=== PATIENT | female | born 1965 | race Caucasian/White ===

== ENCOUNTER → 2016-09-28 | Outpatient (CLI) | payer OTHER ==
[~2016-09-28] MED LIST: ACETAMINOPHEN-O1 TAB PO; ALPRAZOLAM0.5 M3 PO; AMLODIPINE BESY1 TAB PO; ASPIRIN CHILDRE81 MG PO; BACTRIM DS 8001 TA1 PO; CYCLOBENZAPRINE10 MG PO; EPIPEN 2-PAK1 MG/ML IJ; FIORICET 325 MG1 TAB PO; HYDR12.5C PO; KENALOG 0.1% OI15 GM T; LISINOPRIL-HCTZ 20-1; LISINOPRIL-HYDR1 TA1 PO; LISINOPRIL20 MG PO; LISINOPRIL40 MG PO; LOPRESSOR50 MG PO; MEDROL DOSEPAK4 MG PO; NEURONTIN300 MG PO; NORCO 325 MG-51 TAB PO; NORVASC10 MG PO; NORVASC5 MG PO; NOVAPLUS V0.09 MG/Ac IH; PERCOCET 325 MG1 TA6 PO; POTASSIUM CHLO20 ME3 PO; PRAVASTATIN SOD40 MG PO; PREDNISONE10 MG PO; PYRIDIUM200 M1 PO; SERTRALINE HYD100 MG PO; XANAX0.25 MG PO; ZOFRAN ODT4 MG SL; ZOLOFT50 MG PO
[2016-09-28 15:17] LABS: HEMOGLOBIN A1c 14.6 % (4.8-5.6)
== END | disposition home or self-care (01) ==
LOC: LAB 14:11
PROVIDERS: Internal Medicine
DX: R73.9 Hyperglycemia, unspecified (principal)

== ENCOUNTER → 2017-04-01 | Outpatient (CLI) | payer OTHER | END | disposition home or self-care (01) | LOC: RAD 15:00 | DX: M17.12 Unilateral primary osteoarthritis, left knee (principal); M25.462 Effusion, left knee; M76.892 Other specified enthesopathies of left lower limb, excluding foot ==

== ENCOUNTER → 2017-09-05 | Outpatient (CLI) | payer OTHER | END | disposition home or self-care (01) | LOC: US 13:30 | DX: N18.3 Chronic kidney disease, stage 3 (moderate) (principal) ==

== ENCOUNTER 2018-01-09 15:30 | Inpatient (IN) | payer OTHER ==
[~2018-01-09] VITALS: Ht 160 cm; Wt 123.5 kg
[~2018-01-09 15:30] MED LIST changes: -NEURONTIN300 MG PO; +NEURONTIN400 MG PO
[2018-01-09 15:57] LABS: BASO % 0.3 % (0.0-1.0); EOS # 0.1 10*3/uL (0.0-0.4); EOS % 0.7 % (1.0-4.0); HEMATOCRIT 29.8 % (37.0-47.0); HEMOGLOBIN 9.9 g/dl (12.0-16.0); LYMPH # 2.1 10*3/uL (1.3-4.4); LYMPH % 15.4 % (27.0-41.0); MEAN CELL VOLUME 86.4 fl (81.0-99.0); MEAN CORPUSCULAR HGB 28.7 pg (27.0-31.0); MEAN CORPUSCULAR HGB CONC 33.2 g/dl (33.0-37.0); MEAN PLATELET VOLUME 9.4 fl (9.6-12.3); MONO # 0.8 10*3/uL (0.1-1.0); MONO % 5.9 % (3.0-9.0); NEUT # 10.4 10*3/uL (2.3-7.9); PLATELET COUNT AUTOMATED 237 10*3/uL (130-400); RED BLOOD COUNT 3.45 10*6/uL (4.10-5.10); RED CELL DISTRI WIDTH 14.6 % (0-14.5); WHITE BLOOD COUNT 13.5 10*3/uL (4.8-10.8)
[2018-01-09 16:00] VITALS: BP 92/52
[2018-01-09] MEDS ORDERED: HYDROCHLOROTHIA25 M1 PO (16:07)
[2018-01-09] MEDS ORDERED: VITAMIN D-32000 UNI1 PO (16:08)
[2018-01-09] MEDS ORDERED: NORVASC2.5 MG PO (16:08)
[2018-01-09] MEDS ORDERED: REXULTI3 MG PO (16:11)
[2018-01-09] MEDS ORDERED: ALOGLIPTIN6.25 MG PO (16:12)
[2018-01-09] MEDS ORDERED: ACTOS30 M1 PO (16:13)
[2018-01-09] MEDS ORDERED: BASAG SOL SC (16:15)
[2018-01-09 16:57] LABS: CREATININE 1.48 mg/dL (0.55-1.02); POTASSIUM 3.4 mmol/L (3.5-5.1); TOTAL PROTEIN 7.3 gm/dL (6.4-8.2)
[2018-01-09] MEDS ORDERED: VISTARIL25 MG PO (18:21)
[2018-01-09] MEDS ORDERED: DOXEPIN HCL100 MG PO (18:21)
[2018-01-09 20:00] VITALS: BP 106/43
[2018-01-10] VITALS: BP 109/51
[2018-01-10 07:11] LABS: BASO % 0.2 % (0.0-1.0); HEMATOCRIT 30.9 % (37.0-47.0); HEMOGLOBIN 9.8 g/dl (12.0-16.0); LYMPH % 8.1 % (27.0-41.0); MEAN CELL VOLUME 88.3 fl (81.0-99.0); MEAN CORPUSCULAR HGB CONC 31.7 g/dl (33.0-37.0); MEAN PLATELET VOLUME 9.8 fl (9.6-12.3); MONO # 0.1 10*3/uL (0.1-1.0); MONO % 0.6 % (3.0-9.0); NEUT # 11.1 10*3/uL (2.3-7.9); NEUT % 89.2 % (47.0-73.0); PLATELET COUNT AUTOMATED 234 10*3/uL (130-400); RED CELL DISTRI WIDTH 14.6 % (0-14.5); WHITE BLOOD COUNT 12.4 10*3/uL (4.8-10.8)
[2018-01-10 07:38] LABS: CREATININE 1.29 mg/dL (0.55-1.02); PHOSPHOROUS 2.9 mg/dL (2.5-4.9); POTASSIUM 4.1 mmol/L (3.5-5.1)
[2018-01-10 07:44] LABS: THYROID STIM HORMONE (HS) 0.711 uIU/ml (0.358-4.75)
[2018-01-10 07:56] LABS: VITAMIN D, 25-HYDROXY 10.5 ng/mL (30-100)
[2018-01-10 08:00] VITALS: BP 121/64
[2018-01-10 12:00] VITALS: BP 129/62
[2018-01-10 16:00] VITALS: BP 125/84
[2018-01-10 20:00] VITALS: BP 113/41
[2018-01-11] VITALS: BP 129/60
[2018-01-11 06:10] LABS: HEMATOCRIT 28.7 % (37.0-47.0); HEMOGLOBIN 9.1 g/dl (12.0-16.0); MEAN CORPUSCULAR HGB 27.9 pg (27.0-31.0); MEAN CORPUSCULAR HGB CONC 31.7 g/dl (33.0-37.0); MEAN PLATELET VOLUME 10.1 fl (9.6-12.3); PLATELET COUNT AUTOMATED 251 10*3/uL (130-400); RED BLOOD COUNT 3.26 10*6/uL (4.10-5.10); RED CELL DISTRI WIDTH 14.9 % (0-14.5); WHITE BLOOD COUNT 17.2 10*3/uL (4.8-10.8)
[2018-01-11 06:35] LABS: CREATININE 1.28 mg/dL (0.55-1.02); POTASSIUM 4.1 mmol/L (3.5-5.1)
[2018-01-11 08:00] VITALS: BP 125/63
[2018-01-11 08:09] LABS: TOTAL CELLS COUNTED 100 #CELLS
[2018-01-11 08:10] LABS: PLATELET SUFFICIENCY NORMAL (NORMAL)
[2018-01-11 12:00] VITALS: BP 120/60
[2018-01-11 16:00] VITALS: BP 139/59
[2018-01-11 20:00] VITALS: BP 115/57
[2018-01-12] VITALS: BP 106/56
[2018-01-12 08:00] VITALS: BP 145/69
[2018-01-12 12:00] VITALS: BP 136/69
[2018-01-12 16:17] VITALS: BP 129/65
[2018-01-12 20:02] VITALS: BP 119/72
[2018-01-13] VITALS: BP 133/57
[2018-01-13 07:17] LABS: HEMATOCRIT 27.5 % (37.0-47.0); HEMOGLOBIN 8.9 g/dl (12.0-16.0); MEAN CELL VOLUME 88.7 fl (81.0-99.0); MEAN CORPUSCULAR HGB 28.7 pg (27.0-31.0); MEAN CORPUSCULAR HGB CONC 32.4 g/dl (33.0-37.0); MEAN PLATELET VOLUME 10.2 fl (9.6-12.3); NUCLEATED RED BLOOD CELL 0.1 % (0.0-0.0); PLATELET COUNT AUTOMATED 265 10*3/uL (130-400); RED CELL DISTRI WIDTH 15.3 % (0-14.5); WHITE BLOOD COUNT 14.7 10*3/uL (4.8-10.8)
[2018-01-13 07:46] LABS: CREATININE 1.3 mg/dL (0.55-1.02)
[2018-01-13 07:57] LABS: PLATELET SUFFICIENCY NORMAL (NORMAL); POLYCHROMASIA SLIGHT; TOTAL CELLS COUNTED 100 #CELLS
[2018-01-13 08:00] VITALS: BP 151/83
[2018-01-13 12:00] VITALS: BP 137/41
[2018-01-13] MEDS ORDERED: DOXYCYCLINE100 M3 PO (14:10)
[2018-01-13] MEDS ORDERED: PREDNISONE10 MG PO (14:10)
== END 2018-01-13 15:43 | disposition home or self-care (01) | DRG 871 ==
LOC: 4E 15:30
PROVIDERS: Internal Medicine; Student in an Organized Health Care Education/Training Program
DX: A41.9 Sepsis, unspecified organism (principal); J18.9 Pneumonia, unspecified organism; E11.8 Type 2 diabetes mellitus with unspecified complications; E44.0 Moderate protein-calorie malnutrition; F33.9 Major depressive disorder, recurrent, unspecified; J44.0 Chronic obstructive pulmonary disease with (acute) lower respiratory infection; J44.1 Chronic obstructive pulmonary disease with (acute) exacerbation; Z68.42 Body mass index [BMI] 45.0-49.9, adult; E66.01 Morbid (severe) obesity due to excess calories; E83.41 Hypermagnesemia; D64.9 Anemia, unspecified; E78.5 Hyperlipidemia, unspecified; I10 Essential (primary) hypertension; F41.1 Generalized anxiety disorder; M19.90 Unspecified osteoarthritis, unspecified site; Z71.6 Tobacco abuse counseling; Z72.0 Tobacco use; Z88.8 Allergy status to other drugs, medicaments and biological substances; Z79.899 Other long term (current) drug therapy; Z79.82 Long term (current) use of aspirin; Z80.1 Family history of malignant neoplasm of trachea, bronchus and lung; Z84.89 Family history of other specified conditions

== ENCOUNTER 2018-02-13 16:12 | Inpatient (IN) | payer OTHER ==
[~2018-02-13] VITALS: Ht 160 cm; Wt 126.6 kg
--- NOTE | ~2018-02-13 | PR ---
[place], [place] PROGRESS NOTE NAME: [facility] [id number] UNIT #: [id number] ROOM: 415 DOCTOR: LAURA BUCKNER MD BIRTHDATE: [birth year] DOS: 02/21/2018 PULMONARY PROGRESS NOTE SUBJECTIVE: The patient noted comfortable at this time. Significant reduction and improvement in respiratory symptoms noted after the bronchoscopy. She has not been noted with symptoms of any chest pain. Wheezing and other symptoms, especially the cough has improved markedly. OBJECTIVE: VITAL SIGNS: Normal temperature this morning, respiratory rate 20, heart rate 93, blood pressure 148/74. The pulse oxygen saturation on room air 97% saturation. HEENT: Head was atraumatic. Eyes nonicterus. NECK: Supple. CARDIOVASCULAR: S1, S2 audible. LUNGS: Noted without any wheezing or crackles at the present time. ABDOMEN: Soft, nontender. Bowel sounds present. EXTREMITIES: Without any edema. LABORATORY DATA: Culture of the bronchial washing, normal regulo preliminary noted. Gram stain with various cell differentials were noted with neutrophil predominance of 43% with macrophages noted as well, 4% lymphocytes. IMPRESSION: The patient with possibility of acute pneumonia with ground-glass opacity in the left upper lobe as well as acute exacerbation of chronic obstructive pulmonary disease, severe coughing, noted marked reduction after the bronchoscopy. PLAN OF MANAGEMENT: The patient could be considered home discharge. Outpatient followup suggested postdischarge. Continue in the meantime other previous therapy plan of management and care plan. Usual treatment, other supportive care and treatment. [place], [place] PROGRESS NOTE NAME: TOM BREWSTER UNIT #: [id number] ROOM: 415 DOCTOR: LAURA BUCKNER MD BIRTHDATE: [birth year] LAURA MERINO MD CM:KATHERINE [id number] LAURA JACOBS MD 02/21/18 1501 interface
--- NOTE | ~2018-02-13 | PR ---
[place], [place] PROGRESS NOTE [id number] UN[facility] #: [id number] ROOM: 415 DOCTOR: DELMIS SEVILLA MD BIRTHDATE: [birth year] DOS: 02/16/2018 SUBJECTIVE: The patient has been admitted to hospital with shortness of breath with acute COPD with emphysema with respiratory difficulty. She had acute attack of difficulty breathing when she went to the bathroom in the morning, but after aerosol treatment, she is feeling much better. She is also a smoker. I had to mortgage counselor her in detail not to start smoking again and right now, she is having regular heart and having bilateral wheezing with increased expiration in both the lungs. ABDOMEN: Soft. Liver and spleen not palpable. No area of tenderness, no mass palpated. LABORATORY DATA: Her CBC today showed white count 12,600, hemoglobin 8.8, hematocrit 28.1. Blood culture did not grow any bacteria. VITAL SIGNS: Blood pressure 128/80, pulse is 109, respirations 20, temperature 98. The patient is showing slow improvement. DELMIS SEVILLA MD CM:PNTRANS [id number] DELMIS SEVILLA MD 02/27/18 0835 interface
--- NOTE | ~2018-02-13 | CON ---
[place], [place] REPORT OF CONSULTATION NAME: TOM BREWSTER [facility] #: [id number] UNIT #: [id number] ROOM: 415 DOCTOR: ANGELIQUE JACOBS MDLAURA BIRTHDATE: [birth year] DOS: 02/18/2018 REQUESTING PHYSICIAN: Dr. Walter Iverson. REASON FOR CONSULTATION: Assess the patient's current symptoms of shortness of breath and others. HISTORY OF PRESENT ILLNESS: A 52-year-old female patient who has been admitted to the hospital under the care of Dr. Iverson. The patient examined in 2018. The patient reported symptoms of having increased symptoms of coughing, chest pain, chest congestion and wheezing, which has worsened gradually in the last 2 weeks. The patient has been known with a history of COPD and was treated in the hospital about a month ago as per similar symptom. She stated the symptoms have decreased, but not completely resolved. Symptoms worsened again at this time. Coughing has been noted moderate severe, which remains nonproductive. Denies symptoms of chest pain or any acute hemoptysis. The patient denies symptoms of fever or chills with these symptoms. REVIEW OF SYSTEMS: CONSTITUTIONAL: Fatigue and tiredness reported. Denies symptoms of fever or chills. EYES: Denies any burning, redness, or tenderness. EARS, NOSE, THROAT SYMPTOMS: Denies sore throat, hoarseness, otalgia, postnasal drainage or epistaxis. CARDIOVASCULAR SYSTEM: Denies anginal pain, edema, pain and lower extremity. GASTROINTESTINAL: Dysphagia, nausea, vomiting, diarrhea, abdominal pain, hematemesis, melena, or hematochezia. GENITOURINARY SYMPTOM: No dysuria, suprapubic pain, hematuria. MUSCULOSKELETAL SYMPTOM: No acute joint pain, redness, or tenderness. SKIN: Denies symptoms of skin rashes, ulcers or itching. CENTRAL NERVOUS SYSTEM: The patient denies symptoms of diplopia or syncopal episodes. Remaining systems were reviewed with the patient, they were noted all negative. PAST MEDICAL HISTORY: 1. Reported with history of chronic obstructive pulmonary disease. 2. ____ arthritis. 3. Chronic kidney disease stage 3. 4. Type 2 diabetes mellitus. 5. Anxiety disorder. 6. Essential hypertension. 7. Hyperlipidemia. 8. Major depressive disorder. 9. Severe obesity. 10. Vitamin D deficiency. PAST SURGICAL HISTORY: Reported as . SOCIAL HISTORY: She was noted , has 2 children, and lives at home. [place], [place] REPORT OF CONSULTATION NAME: TOM BREWSTER UNIT #: [id number] ROOM: 415 DOCTOR: ANGELIQUE JACOBS MD,LAURA BIRTHDATE: [birth year] Smoked about half a pack of cigarettes actively since teenager. FAMILY HISTORY: Father at age 3333 years old from brain aneurysm. Mother at the age of 72 complication related to the lung cancer. HOME MEDICATIONS Reported as use of Ventolin HFA inhaler, Alogliptin, Xanax, Norvasc, aspirin, ____, vitamin D, cyclobenzaprine, doxepin, EpiPen, Neurontin, hydrochlorothiazide, Vistaril, sliding insulin coverage, nicotine replacement patches, Actos and sertraline. Medication which has been listed for the management of COPD were noted. Solu-Medrol 60 mg b.i.d., DuoNeb via nebulizer every 4 hours and Levaquin 500 mg every 48 hours. DRUG ALLERGIES: 1. LISINOPRIL CAUSING ANGIOEDEMA. 2. CITALOPRAM CAUSING VOMITING. PHYSICAL EXAMINATION: GENERAL: This is a 52-year-old white female who has been noted currently awake and alert without any distress. Height of 5 feet 3 inches, weight of 279 pounds, BMI 49.4. VITAL SIGNS: The patient was recorded as normal temperature, respiratory rate 20-18, heart rate of 97-105, blood pressure 142/76, 166-78. Pulse ox saturation on 2 liters 99-100% saturation. HEAD, EYES, EARS, NOSE, AND THROAT: Examination shows head was atraumatic. Eyes nonicterus. NECK: Supple. CARDIOVASCULAR SYSTEM: S1, S2 is audible. LUNGS: The patient was noted without any crackles. Decreased breath sounds with diffuse expiratory wheezing. ABDOMEN: Soft with chronic obesity, positive present without tenderness. CENTRAL NERVOUS SYSTEM: Cranial nerves 2-12 intact. No focal deficit. MUSCULOSKELETAL SYMPTOMS: Without acute deformities. LABORATORY AND DIAGNOSTIC DATA: CBC that was done this morning, WBC count 15.1, hemoglobin 8.7, platelet count 203,000. Creatinine this morning noted 1.63. Blood culture from the 7th of this month showed no bacterial growths. The review of the radiology data chest x-ray that was done on 02/13/2018 was noted changes of COPD without acute pulmonary infiltration. IMPRESSION: 1. The patient will be currently admitted to the hospital noted with ongoing acute exacerbation of chronic obstructive pulmonary disease treated with corticosteroids, bronchodilators, and other treatment, was still noted the coughing and wheezing that remains persistent. 2. History of nicotine abuse was also noted previous. 3. Severe morbid obesity as well. 4. Clinical suspicion of possibility of obstructive sleep apnea disorder with current body habitus as well. [place], [place] REPORT OF CONSULTATION NAME: TOM BREWSTER UNIT #: [id number] ROOM: 415 DOCTOR: ANGELIQUE JACOBS MD,LAURA BIRTHDATE: [birth year] PLAN OF MANAGEMENT: Continue Solu-Medrol, bronchodilators and oxygen supplementation. Monitor respiratory status closely. Addition of the ____ treatment. If the patient's symptoms persist, we will be scheduling a bronchoscopy at this time for further medical management. She is already getting the flutter valve that will be continued. Additional treatment changes will be made based on progression of the illness. Thanks for allowing me to participate in the care of this patient. LAURA MERINO MD CM:CONSTR:REPORT OF CONSULTATION 1317 02/18/18 6881 interface
--- NOTE | ~2018-02-13 | PROC NOTE ---
[place], [place] PROCEDURE NOTE NAME: TOM BREWSTER UNIT #: [id number] ROOM: 415 DOCTOR: ANGELIQUE JACOBS MD,LAURA BIRTHDATE: [birth year] DOS: 02/20/2018 PREOPERATIVE DIAGNOSES: Coughing, ground-glass opacity left upper lobe, nonresolving respiratory symptoms. POSTOPERATIVE DIAGNOSES: Removal of multiple thick plugs of mucus ____ bilaterally. BAL specimen was obtained from the left upper lobe as well. COMPLICATIONS: None. BLOOD LOSS: None. PROCEDURE DESCRIPTION: Informed consent was obtained for the patient, she was brought to the OR and placed in supine position. Conscious sedation administered by the Anesthesia Department. After achieving proper sedation, airway introduced into the mouth. Bronchoscope advanced into the airway into the laryngeal area. Epiglottis and vocal cords were seen. Bronchoscope was advanced to vocal cord and tracheal lumen. The tracheal lumen was seen. Moderate amount of thick mucus secretion suctioned out the aaron level. The aaron level was noted sharp. Right upper, right lower, right middle, right lower, left upper, lingular lobe bronchi were all noted impacted with thick mucus plugs which was cleared out with normal saline wash. BAL specimen obtained from the left upper lobe that was done difficulty. Transient hypoxia, treated with withdrawal of the scope. Continue oxygen supplementation. No complication noted post-procedure. Bronchial washings sent for all the appropriate testing including cytology, cell with differential and cultures. LAURA MERINO MD CM:PROCNOTE:PROCEDURE NOTE [id number] LAURA JACOBS MD
--- NOTE | ~2018-02-13 | PR ---
[place], [place] PROGRESS NOTE NAME: TOM BREWSTER UNIT #: [id number] ROOM: 415 DOCTOR: LAURA BUCKNER MD BIRTHDATE: [birth year] DOS: 02/20/2018 SUBJECTIVE: The patient noted the same for the patient's severe cough that remains persistent. Denies any symptoms of chest pain at this time. The cough, which remains nonproductive. She does have symptoms of wheezing intermittently, shortness of breath as well. Denies symptoms of nausea, vomiting, postnasal drainage, or headache. Denies any edema or pain in lower extremity. Denies symptoms of nausea, vomiting, diarrhea. Remaining systems were reviewed. They were noted all negative. OBJECTIVE: VITAL SIGNS: For the patient, which has been recorded shows the temperature noted as normal, respiratory rate of 16, heart rate 100, blood pressure 175/85 and previously 110/48. Pulse oxygen saturation of the patient noted on 2 liters nasal cannula 96% saturation. HEENT: Chronic obesity. Head was atraumatic. Eye nonicterus. NECK: Supple. CARDIOVASCULAR: S1, S2 audible. LUNGS: The patient noted generalized reduction in the breath sounds bilaterally with expiratory wheezing, no crackles. ABDOMEN: Soft, nontender. Bowel sounds present. EXTREMITIES: Chronic obesity without acute edema. MUSCULOSKELETAL: Without any acute deformities. SKIN: Noted without lesions or rashes. IMPRESSION: 1. The patient has been noted with ongoing severe acute exacerbation of chronic obstructive pulmonary disease. 2. ____ left upper lobe as well. 3. Severe obesity. 4. Consideration for obstructive sleep apnea disorder clinical assessment. 5. History of nicotine dependence. PLAN OF MANAGEMENT: Proceed with the bronchoscopy as planned for the patient today. Modification in treatment will be done based on the bronchoscopy if necessary. Other supportive therapy, plan of management and care plan. The patient was noted with mild elevation in the blood pressure related to mostly anxiety prior to the bronchoscopy; resolved after the bronchoscopy completion. No other change in treatment will be necessary. [place], [place] PROGRESS NOTE NAME: TOM BREWSTER UNIT #: [id number] ROOM: 415 DOCTOR: LAURA BUCKNER MD BIRTHDATE: [birth year] LAURA MERINO MD CM:PNTRANS 0 102 LAURA JACOBS MD 02/20/18 1022 interface
--- NOTE | ~2018-02-13 | PR ---
[place], [place] PROGRESS NOTE NAME: TOM BREWSTER [facility] #: [id number] UNIT #: [id number] ROOM: 415 DOCTOR: ANGELIQUE JACOBS MD,LAURA BIRTHDATE: [birth year] DOS: 02/19/2018 SUBJECTIVE: The patient noted comfortable at this time without any acute distress, has not been noted any symptoms of chest pain. Still noted with persistent symptoms of coughing, shortness of breath or chest congestion, inability to expectorate sputum. Denies symptoms of nausea, vomiting. Denies symptoms of diarrhea. The pain in the chest reported with coughing in the lower portion of the rib cage. She denies symptoms of dizziness, diplopia, syncopal episodes. The remaining systems for the patient were reviewed, they were noted all negative. PHYSICAL EXAMINATION: VITAL SIGNS: For the patient which are recorded showed normal temperature, respiratory rate 18, heart rate of 107, blood pressure 154/71, 122/48. Pulse ox saturation on room air was 92% on 2 liter nasal cannula was 96% saturation. HEENT: Examination shows chronic obesity. Head was atraumatic. Eyes nonicterus. NECK: Supple. CARDIOVASCULAR: S1, S2 is audible. LUNGS: The patient noted with general reduction in breath sounds bilaterally with expiratory wheezing. There were no crackles. ABDOMEN: Soft, nontender. Bowel sounds present. EXTREMITIES: The patient was noted without any acute edema. VISIBLE SKIN: No lesions or rashes. MUSCULOSKELETAL: Noted without any acute deformities. CENTRAL NERVOUS SYSTEM: Cranial nerves 2-12 intact. LABORATORY DATA: The patient had a CT scan of the chest, which was done without contrast ordered by the primary care attending was personally reviewed today shows evidence of patchy infiltration noted in the right middle lobe as in the right lower lobe for the patient consistent with acute pneumonia. A 5 mm nodule was noted in the right lower lobe as well. Further ground-glass opacity noted in the bilateral lower lobes as well. IMPRESSION: 1. The patient with ongoing acute exacerbation of chronic obstructive pulmonary disease with acute bacterial pneumonia. 2. The patient with evidence of 5-mm right lower lobe nodule, etiology unclear. 3. Suspicion of obstructive sleep apnea disorder. 4. Severe morbid obesity. 5. History of nicotine use. PLAN OF MANAGEMENT: Continue bronchodilators, oxygen supplementation and antibiotics. Continue the Mucinex for this patient as well in the flutter valve. Steroid dose for the patient would be continued the same as well. The patient was assessed for therapy of bronchoscopy as planned, to be done in the morning. The pulmonary nodule noted incidentally need to be monitored as an outpatient. No additional change in the treatment at this time will be necessary. Usual care, other supportive plan of management and care. [place], [place] PROGRESS NOTE NAME: TOM BREWSTER UNIT #: [id number] ROOM: [facility] DOCTOR: LAURA BUCKNER MD BIRTHDATE: [birth year] LAURA MERINO MD CM:KATHERINE 1030 [id number] LAURA JACOBS MD 02/19/18 1408 interface
--- NOTE | ~2018-02-13 | EKG ---
[place], [place] ELECTROCARDIOGRAM REPORT NAME: TOM BREWSTER UNIT #: [id number] ROOM: 415 DOCTOR: ANGELIQUE JACOBS MD,LAURA BIRTHDATE: [birth year] DOS: 02/19/2018 Electrocardiogram TIME: 08:53 a.m. Sinus tachycardia noted, heart rate 103 beats per minute. Possibility of left atrial enlargement, would be considered. LAURA MERINO MD CM:EKGRPT:ELECTROCARDIOGRAM REPORT [id number] 0907 LAURA JACOBS MD
--- NOTE | ~2018-02-13 | PR ---
[place], [place] PROGRESS NOTE NAME: TOM BREWSTER [facility] #: [id number] UNIT #: [id number] ROOM: 415 DOCTOR: DELMIS SEVILLA MD BIRTHDATE: [birth year] DOS: 02/15/2018 SUBJECTIVE: The patient has been admitted to hospital with acute bronchitis with sepsis with chronic kidney disease, COPD, diabetes mellitus, hypertension, hyperlipidemia, morbid obesity, protein calorie malnutrition, vitamin D deficiency and hypochromic anemia and also having chronic history of tobacco abuse. The patient is still having lot of cough and bringing up some phlem and having bilateral wheezing with some crepitation in both the lungs. Her hemoglobin Ac is 7.1. Her basic metabolic profile today shows glucose 251, BUN 24, creatinine 1.45, GFR 38, indicating chronic kidney disease. CBC showed white count 12,600, hemoglobin 8.8, hematocrit 28.1, 77% neutrophils, 18% lymphocyte, 5% monocyte. Blood culture did not grow any bacteria. OBJECTIVE: VITAL SIGNS: Her blood pressure is 144/69, pulse 110, respirations 20, temperature 97.6. The patient states she is feeling better as compared to yesterday. I counseled her in detail that she shall not smoke anymore. She promised she would not smoke anymore. DELMIS SEVILLA MD CM:PNTRANS [phone] DELMIS SEVILLA MD 02/27/18 0834 interface
[~2018-02-13 16:12] MED LIST changes: +ACTOS30 M1 PO; +ALOGLIPTIN6.25 MG PO; +BASAG SOL SC; +DOXEPIN HCL100 MG PO; +DOXYCYCLINE100 M3 PO; +HYDROCHLOROTHIA25 M1 PO; +NORVASC2.5 MG PO; +REXULTI3 MG PO; +VISTARIL25 MG PO; +VITAMIN D-32000 UNI1 PO
[2018-02-13 16:21] VITALS: BP 112/54
[2018-02-13 17:03] LABS: BASO % 0.3 % (0.0-1.0); EOS # 0.1 10*3/uL (0.0-0.4); EOS % 1.4 % (1.0-4.0); HEMATOCRIT 32.4 % (37.0-47.0); HEMOGLOBIN 10.3 g/dl (12.0-16.0); LYMPH # 2.2 10*3/uL (1.3-4.4); LYMPH % 24.7 % (27.0-41.0); MEAN CELL VOLUME 86.2 fl (81.0-99.0); MEAN CORPUSCULAR HGB 27.4 pg (27.0-31.0); MEAN CORPUSCULAR HGB CONC 31.8 g/dl (33.0-37.0); MEAN PLATELET VOLUME 9.2 fl (9.6-12.3); MONO # 0.7 10*3/uL (0.1-1.0); MONO % 7.5 % (3.0-9.0); NEUT # 5.9 10*3/uL (2.3-7.9); NEUT % 65.1 % (47.0-73.0); PLATELET COUNT AUTOMATED 377 10*3/uL (130-400); RED BLOOD COUNT 3.76 10*6/uL (4.10-5.10); RED CELL DISTRI WIDTH 14.7 % (0-14.5)
[2018-02-13 17:13] LABS: ACT PARTIAL THROMBO TIME 28.3 SECONDS (20.8-31.5)
[2018-02-13 17:22] LABS: ALBUMIN 3.2 gm/dl (3.1-4.5); ALKALINE PHOSPHATASE 152 U/L (45-117); BUN 15 mg/dl (7-24); CHLORIDE 99 mmol/L (98-107); CREATININE 1.47 mg/dL (0.55-1.02); LIPASE 38 U/L (73-393); POTASSIUM 3.4 mmol/L (3.5-5.1); SGOT/AST 10 IU/L (3-35); SGPT/ALT 15 U/L (12-78); SODIUM 139 mmol/L (136-145); TOTAL PROTEIN 8.1 gm/dL (6.4-8.2); TROPONIN I < 0.015 ng/ml (<0.045)
[2018-02-13] MEDS ORDERED: REXULTI2 MG PO (18:45)
[2018-02-13] MEDS ORDERED: NICODERM CQ1 EAC2 TD (18:49)
[2018-02-13 18:56] VITALS: BP 116/66
[2018-02-13 20:00] VITALS: BP 134/59
[2018-02-14 00:26] VITALS: BP 117/60
[2018-02-14 06:37] LABS: BASO % 0.3 % (0.0-1.0); HEMATOCRIT 33.6 % (37.0-47.0); HEMOGLOBIN 10.3 g/dl (12.0-16.0); LYMPH # 1.2 10*3/uL (1.3-4.4); LYMPH % 13.5 % (27.0-41.0); MEAN CELL VOLUME 87.7 fl (81.0-99.0); MEAN CORPUSCULAR HGB 26.9 pg (27.0-31.0); MEAN CORPUSCULAR HGB CONC 30.7 g/dl (33.0-37.0); MEAN PLATELET VOLUME 9.6 fl (9.6-12.3); MONO # 0.1 10*3/uL (0.1-1.0); NEUT # 7.7 10*3/uL (2.3-7.9); NEUT % 83.4 % (47.0-73.0); PLATELET COUNT AUTOMATED 365 10*3/uL (130-400); RED BLOOD COUNT 3.83 10*6/uL (4.10-5.10); RED CELL DISTRI WIDTH 14.4 % (0-14.5); WHITE BLOOD COUNT 9.2 10*3/uL (4.8-10.8)
[2018-02-14 06:41] LABS: ACT PARTIAL THROMBO TIME 28.8 SECONDS (20.8-31.5)
[2018-02-14 06:50] LABS: ALBUMIN 2.9 gm/dl (3.1-4.5); CREATININE 1.39 mg/dL (0.55-1.02); FREE T4 0.95 ng/dl (0.76-1.46); PHOSPHOROUS 3.6 mg/dL (2.5-4.9); POTASSIUM 3.5 mmol/L (3.5-5.1); TOTAL PROTEIN 7.6 gm/dL (6.4-8.2)
[2018-02-14 06:55] LABS: THYROID STIM HORMONE (HS) 1.23 uIU/ml (0.358-4.75)
[2018-02-14 07:30] LABS: VITAMIN D, 25-HYDROXY 22.3 ng/mL (30-100)
[2018-02-14 08:00] VITALS: BP 154/65
[2018-02-14 12:00] VITALS: BP 134/64
[2018-02-14 16:00] VITALS: BP 134/60
[2018-02-14 20:00] VITALS: BP 109/56
[2018-02-15] VITALS: BP 108/48
[2018-02-15 06:15] LABS: HEMATOCRIT 28.1 % (37.0-47.0); HEMOGLOBIN 8.8 g/dl (12.0-16.0); MEAN CELL VOLUME 88.1 fl (81.0-99.0); MEAN CORPUSCULAR HGB 27.6 pg (27.0-31.0); MEAN CORPUSCULAR HGB CONC 31.3 g/dl (33.0-37.0); MEAN PLATELET VOLUME 9.8 fl (9.6-12.3); PLATELET COUNT AUTOMATED 312 10*3/uL (130-400); RED BLOOD COUNT 3.19 10*6/uL (4.10-5.10); RED CELL DISTRI WIDTH 14.6 % (0-14.5); WHITE BLOOD COUNT 12.6 10*3/uL (4.8-10.8)
[2018-02-15 06:30] LABS: CREATININE 1.45 mg/dL (0.55-1.02)
[2018-02-15 06:33] LABS: POTASSIUM 4.5 mmol/L (3.5-5.1)
[2018-02-15 06:49] LABS: PLATELET SUFFICIENCY NORMAL (NORMAL); POLYCHROMASIA SLIGHT; TOTAL CELLS COUNTED 100 #CELLS
[2018-02-15 08:00] VITALS: BP 140/67
[2018-02-15 12:00] VITALS: BP 126/61
[2018-02-15 16:00] VITALS: BP 144/69
[2018-02-15 20:00] VITALS: BP 162/79
[2018-02-16] VITALS: BP 118/56
[2018-02-16 08:00] VITALS: BP 128/80
[2018-02-16 12:00] VITALS: BP 136/78
[2018-02-16 16:00] VITALS: BP 142/69
[2018-02-16 20:00] VITALS: BP 117/58
[2018-02-17] VITALS: BP 136/61
[2018-02-17 08:00] VITALS: BP 144/73
[2018-02-17 12:00] VITALS: BP 142/72
[2018-02-17 16:00] VITALS: BP 136/68
[2018-02-17 20:00] VITALS: BP 142/75
[2018-02-18 00:19] VITALS: BP 142/76
[2018-02-18 00:27] LABS: HEMATOCRIT 27.9 % (37.0-47.0); HEMOGLOBIN 8.7 g/dl (12.0-16.0); MEAN CELL VOLUME 88.3 fl (81.0-99.0); MEAN CORPUSCULAR HGB 27.5 pg (27.0-31.0); MEAN CORPUSCULAR HGB CONC 31.2 g/dl (33.0-37.0); MEAN PLATELET VOLUME 9.7 fl (9.6-12.3); PLATELET COUNT AUTOMATED 303 10*3/uL (130-400); RED BLOOD COUNT 3.16 10*6/uL (4.10-5.10); WHITE BLOOD COUNT 15.1 10*3/uL (4.8-10.8)
[2018-02-18 00:38] LABS: CREATININE 1.63 mg/dL (0.55-1.02)
[2018-02-18 01:28] LABS: PLATELET SUFFICIENCY NORMAL (NORMAL); TOTAL CELLS COUNTED 100 #CELLS
[2018-02-18 08:00] VITALS: BP 166/78
[2018-02-18 12:00] VITALS: BP 168/68
[2018-02-18 16:00] VITALS: BP 157/84
[2018-02-18 20:00] VITALS: BP 150/76
[2018-02-19] VITALS: BP 122/48
[2018-02-19 06:33] LABS: HEMATOCRIT 28.7 % (37.0-47.0); HEMOGLOBIN 8.8 g/dl (12.0-16.0); MEAN CELL VOLUME 89.1 fl (81.0-99.0); MEAN CORPUSCULAR HGB 27.3 pg (27.0-31.0); MEAN CORPUSCULAR HGB CONC 30.7 g/dl (33.0-37.0); MEAN PLATELET VOLUME 10.1 fl (9.6-12.3); NUCLEATED RED BLOOD CELL 0.1 % (0.0-0.0); PLATELET COUNT AUTOMATED 291 10*3/uL (130-400); RED BLOOD COUNT 3.22 10*6/uL (4.10-5.10); RED CELL DISTRI WIDTH 15.1 % (0-14.5); WHITE BLOOD COUNT 15.1 10*3/uL (4.8-10.8)
[2018-02-19 06:52] LABS: CREATININE 1.41 mg/dL (0.55-1.02); POTASSIUM 4.5 mmol/L (3.5-5.1)
[2018-02-19 07:54] LABS: PLATELET SUFFICIENCY NORMAL (NORMAL); TOTAL CELLS COUNTED 100 #CELLS
[2018-02-19 08:00] VITALS: BP 154/73
[2018-02-19 12:00] VITALS: BP 152/72
[2018-02-19 16:00] VITALS: BP 154/82
[2018-02-19 20:00] VITALS: BP 137/57
[2018-02-20] VITALS (8 sets, daily range): BP systolic 102–175; BP diastolic 46–90
[2018-02-20 10:57] LABS: BF LYMPHOCYTES 4 %; BF MACROPHAGES 53 %; BF NEUTROPHILS 43 %
[2018-02-21] VITALS: BP 120/54
[2018-02-21 08:00] VITALS: BP 148/74
[2018-02-21] MEDS ORDERED: LEVAQUIN750 M1 PO (13:10)
[2018-02-21] MEDS ORDERED: PREDNISONE10 MG PO (13:11)
[2018-02-21] MEDS ORDERED: LIPITOR10 MG PO (13:13)
[2018-02-21 18:03] LABS: ACID FAST SPEC PROCESSING Concentration (.)
== END 2018-02-21 13:40 | disposition home or self-care (01) | DRG 853 ==
LOC: ED 16:12 → EDHOLD 17:59 → 4E 17:59
PROVIDERS: Family Medicine; Internal Medicine; Internal Medicine Critical Care Medicine; Nurse Practitioner Family
PROC: 0B9G8ZX Drainage of Left Upper Lung Lobe, Via Natural or Artificial Opening Endoscopic, Diagnostic (ICD-10-PCS; principal; 2018-02-20)
PROC: 0BC98ZZ Extirpation of Matter from Lingula Bronchus, Via Natural or Artificial Opening Endoscopic (ICD-10-PCS; 2018-02-20)
PROC: 0BC48ZZ Extirpation of Matter from Right Upper Lobe Bronchus, Via Natural or Artificial Opening Endoscopic (ICD-10-PCS; 2018-02-20)
PROC: 0BC88ZZ Extirpation of Matter from Left Upper Lobe Bronchus, Via Natural or Artificial Opening Endoscopic (ICD-10-PCS; 2018-02-20)
PROC: 0BC58ZZ Extirpation of Matter from Right Middle Lobe Bronchus, Via Natural or Artificial Opening Endoscopic (ICD-10-PCS; 2018-02-20)
PROC: 0BC38ZZ Extirpation of Matter from Right Main Bronchus, Via Natural or Artificial Opening Endoscopic (ICD-10-PCS; 2018-02-20)
PROC: 0BC78ZZ Extirpation of Matter from Left Main Bronchus, Via Natural or Artificial Opening Endoscopic (ICD-10-PCS; 2018-02-20)
PROC: 0BC68ZZ Extirpation of Matter from Right Lower Lobe Bronchus, Via Natural or Artificial Opening Endoscopic (ICD-10-PCS; 2018-02-20)
PROC: 0BCB8ZZ Extirpation of Matter from Left Lower Lobe Bronchus, Via Natural or Artificial Opening Endoscopic (ICD-10-PCS; 2018-02-20)
PROC: 0BC18ZZ Extirpation of Matter from Trachea, Via Natural or Artificial Opening Endoscopic (ICD-10-PCS; 2018-02-20)
DX: A41.9 Sepsis, unspecified organism (principal); J15.9 Unspecified bacterial pneumonia; T17.890A Other foreign object in other parts of respiratory tract causing asphyxiation, initial encounter; E44.0 Moderate protein-calorie malnutrition; E11.22 Type 2 diabetes mellitus with diabetic chronic kidney disease; J44.1 Chronic obstructive pulmonary disease with (acute) exacerbation; Z68.42 Body mass index [BMI] 45.0-49.9, adult; N18.3 Chronic kidney disease, stage 3 (moderate); E66.01 Morbid (severe) obesity due to excess calories; E83.41 Hypermagnesemia; D64.9 Anemia, unspecified; E78.5 Hyperlipidemia, unspecified; M19.90 Unspecified osteoarthritis, unspecified site; E11.65 Type 2 diabetes mellitus with hyperglycemia; I12.9 Hypertensive chronic kidney disease with stage 1 through stage 4 chronic kidney disease, or unspecified chronic kidney disease; G47.33 Obstructive sleep apnea (adult) (pediatric); X58.XXXA Exposure to other specified factors, initial encounter; E55.9 Vitamin D deficiency, unspecified; F32.9 Major depressive disorder, single episode, unspecified; F41.1 Generalized anxiety disorder; Z88.8 Allergy status to other drugs, medicaments and biological substances; Z79.82 Long term (current) use of aspirin; Z98.891 History of uterine scar from previous surgery; Z98.51 Tubal ligation status; Z72.0 Tobacco use; Z80.1 Family history of malignant neoplasm of trachea, bronchus and lung; Z71.6 Tobacco abuse counseling; Z83.3 Family history of diabetes mellitus; Z82.49 Family history of ischemic heart disease and other diseases of the circulatory system; Z79.4 Long term (current) use of insulin; Z79.84 Long term (current) use of oral hypoglycemic drugs; Y93.89 Activity, other specified; Y92.89 Other specified places as the place of occurrence of the external cause; Y99.8 Other external cause status

== ENCOUNTER 2018-08-17 13:50 | Inpatient (IN) | payer OTHER ==
[~2018-08-17] VITALS: Ht 160 cm; Wt 117.7 kg
--- NOTE | ~2018-08-17 | CON ---
[place], [place] REPORT OF CONSULTATION [id number] UNIT #: [id number] ROOM: 405 DOCTOR: PHD ALEXI MEMO BIRTHDATE: [birth year] DOS: 08/21/2018 HISTORY OF PRESENT ILLNESS: The patient is a 53-year-old female referred by Dr. Iverson with concerns for depression and anxiety. The patient is seen at [facility]. She is presently on the 4th floor at [facility]. She is hoping to live with her sister upon discharge, although she may go to a homeless alf. She denied alcohol and drug use and smokes 6-7 cigarettes a day. She is unemployed. PAST MEDICAL HISTORY: Arthritis, chronic kidney disease, COPD, diabetes, elevated alkaline phosphatase level, generalized anxiety disorder, hypertension, hyperlipidemia, hypermagnesemia, lung nodules, lumphopenia, major depressive disorder, normocytic anemia, pneumonia, protein-calorie malnutrition, moderate sepsis, tachycardia, tachypnea, and vitamin D deficiency. MEDICATIONS: Mucinex, heparin, Senokot, Solu-Medrol, dextrose, Humulin, Lipitor, rexulti, Lantus, Actos, Tradjenta, vitamin D, aspirin, Norvasc, Nicoderm, Vistaril, Neurontin, Zoloft, Sinequan, Flexeril, DuoNeb, Rocephin, Zithromax, Xanax, Percocet. The patient reports feelings of depression and anxiety related to not being able to see her grandchildren at her weekly custody meeting, affect was tearful at times. She firmly denied suicidal and homicidal ideation. Speech and language were within normal limits conversationally. Thought process was linear and goal directed. Thought content was negative for hallucinations and delusions. Insight and judgment appeared fair. Discussed patient's disappointment with not being discharged in time to attend her visitation with her grandchildren and her concerns about her living situation upon discharge. Utilized CBT, motivational interviewing and supportive therapy interventions. The patient was receptive to feedback. She is very pleased with her current psychiatric medication regimen and providers. She plans to continue following with [facility] upon discharge. DIAGNOSES: Major depressive disorder, recurrent, unspecified; generalized anxiety disorder. PLAN: I will continue to follow the patient as needed. She will continue with her outpatient providers upon discharge. She is not requesting any medication changes at this time. Thank you very much for this consult. [place], [place] REPORT OF CONSULTATION NAME: TOM BREWSTER UNIT #: [id number] ROOM: 405 DOCTOR: ALEXI, PHD MEMO BIRTHDATE: [birth year] Lucia Headley, PhD CM:CONSTR:REPORT OF CONSULTATION 1637 08/26/18 1109 interface
--- NOTE | ~2018-08-17 | EKG ---
[place], [place] ELECTROCARDIOGRAM REPORT NAME: TOM BREWSTER UNIT #: [id number] ROOM: 405 DOCTOR: JESUS DRAFT REPORT BIRTHDATE: [birth year] [facility] Test Date: 2018-08-17 Test Time: 14:02:18 Pat Name: TOM BREWSTER Department: Room: 405 Gender: F Part Time: : 1965 Requested By: KVNG CASTRO PA-C Order Number: [id number] Reading MD: Mikhail Gamez MD Measurements Intervals [place] Rate: 95 P: 46 UT: 173 QRS: -10 QRSD: 104 T: 42 QT: 387 QTc: 487 Interpretive Statements Sinus rhythm RSR' in V1 or V2, right VCD or RVH Abnormal inferior Q waves Borderline prolonged QT interval Electronically Signed On 08-18-2018 6:52:04 PST by Mikhail Gamez MD CM:EKGRPT:ELECTROCARDIOGRAM REPORT 1402 0652 KVNG CASTRO PA-C EPIPHANY DRAFT REPORT KVNG CASTRO PA-C
[~2018-08-17 13:50] MED LIST changes: +LEVAQUIN750 M1 PO; +LIPITOR10 MG PO; +NICODERM CQ1 EAC2 TD; +REXULTI2 MG PO
[2018-08-17 13:52] VITALS: BP 156/75
[2018-08-17 15:23] LABS: BASO # 0.1 10*3/uL (0.0-0.1); BASO % 0.6 % (0.0-1.0); EOS % 0.2 % (1.0-4.0); HEMATOCRIT 37.9 % (37.0-47.0); HEMOGLOBIN 12.6 g/dl (12.0-16.0); LYMPH # 2.3 10*3/uL (1.3-4.4); LYMPH % 27.7 % (27.0-41.0); MEAN CELL VOLUME 81.3 fl (81.0-99.0); MEAN CORPUSCULAR HGB CONC 33.2 g/dl (33.0-37.0); MEAN PLATELET VOLUME 9.7 fl (9.6-12.3); MONO # 0.6 10*3/uL (0.1-1.0); MONO % 7.4 % (3.0-9.0); NEUT # 5.2 10*3/uL (2.3-7.9); NEUT % 63.5 % (47.0-73.0); PLATELET COUNT AUTOMATED 310 10*3/uL (130-400); RED BLOOD COUNT 4.66 10*6/uL (4.10-5.10); RED CELL DISTRI WIDTH 15.4 % (0-14.5); WHITE BLOOD COUNT 8.1 10*3/uL (4.8-10.8)
[2018-08-17 16:00] VITALS: BP 141/86
[2018-08-17 16:43] LABS: ALBUMIN 3.8 gm/dl (3.1-4.5); ALKALINE PHOSPHATASE 118 U/L (45-117); BUN 22 mg/dl (7-24); CHLORIDE 105 mmol/L (98-107); CREATININE 1.49 mg/dL (0.55-1.02); POTASSIUM 3.8 mmol/L (3.5-5.1); SGOT/AST 14 IU/L (3-35); SGPT/ALT 15 U/L (12-78); SODIUM 140 mmol/L (136-145); TOTAL PROTEIN 8.2 gm/dL (6.4-8.2)
[2018-08-17 16:45] LABS: TROPONIN I < 0.015 ng/ml (<0.045)
[2018-08-17 17:08] VITALS: BP 145/82
[2018-08-17 18:37] VITALS: BP 147/87
[2018-08-17 20:13] VITALS: BP 143/83
[2018-08-17 22:48] LABS: BILIRUBIN 1+ (NEGATIVE); BLOOD 1+ (NEGATIVE); CLARITY CLEAR (CLEAR); COLOR YELLOW (YELLOW); GLUCOSE 1+ (NEGATIVE); KETONE 1+ (NEGATIVE); LEUKO ESTERASE NEGATIVE (NEGATIVE); NITRITE NEGATIVE (NEGATIVE); SPECIFIC GRAVITY 1.025 (1.005-1.030); UROBILINOGEN 0.2 E.U./dl (0.2-1.0)
[2018-08-17 22:59] LABS: EPITHELIAL CELLS 35-40
[2018-08-17 23:00] LABS: BACTERIA TRACE; WBC 0-2 wbc/hpf (0-5)
[2018-08-18] VITALS: BP 142/92
[2018-08-18 06:37] LABS: BASO % 0.3 % (0.0-1.0); HEMATOCRIT 38.5 % (37.0-47.0); HEMOGLOBIN 12.1 g/dl (12.0-16.0); LYMPH # 1.3 10*3/uL (1.3-4.4); LYMPH % 21.8 % (27.0-41.0); MEAN CELL VOLUME 82.6 fl (81.0-99.0); MEAN CORPUSCULAR HGB CONC 31.4 g/dl (33.0-37.0); MEAN PLATELET VOLUME 10.2 fl (9.6-12.3); MONO # 0.1 10*3/uL (0.1-1.0); NEUT # 4.5 10*3/uL (2.3-7.9); NEUT % 74.9 % (47.0-73.0); PLATELET COUNT AUTOMATED 296 10*3/uL (130-400); RED BLOOD COUNT 4.66 10*6/uL (4.10-5.10); RED CELL DISTRI WIDTH 15.5 % (0-14.5)
[2018-08-18 06:47] LABS: ALBUMIN 3.4 gm/dl (3.1-4.5); CREATININE 1.45 mg/dL (0.55-1.02); POTASSIUM 3.1 mmol/L (3.5-5.1); TOTAL PROTEIN 7.7 gm/dL (6.4-8.2)
[2018-08-18 12:00] VITALS: BP 143/80
[2018-08-18 16:00] VITALS: BP 140/62
[2018-08-18 20:00] VITALS: BP 123/60
[2018-08-19] VITALS: BP 133/69
[2018-08-19 08:00] VITALS: BP 125/62
[2018-08-19 12:00] VITALS: BP 142/73
[2018-08-19 16:00] VITALS: BP 105/60
[2018-08-19 20:00] VITALS: BP 125/62
[2018-08-20] VITALS: BP 169/72
[2018-08-20 07:26] LABS: CREATININE 1.49 mg/dL (0.55-1.02); POTASSIUM 3.7 mmol/L (3.5-5.1)
[2018-08-20 11:57] VITALS: BP 135/58
[2018-08-20 16:00] VITALS: BP 127/60
[2018-08-20 20:00] VITALS: BP 156/69
[2018-08-21] VITALS: BP 145/75
[2018-08-21 10:07] LABS: CREATININE,URINE 52.6 mg/dL (Not Estab.); MICRO ALBUMIN/CRE RATIO <5.7 (0.0-30.0)
[2018-08-21 12:00] VITALS: BP 136/75
[2018-08-21 16:00] VITALS: BP 150/56
[2018-08-21 20:00] VITALS: BP 111/67; BP 125/72
[2018-08-22] VITALS: BP 143/64
[2018-08-22 12:00] VITALS: BP 133/56
[2018-08-22 16:00] VITALS: BP 116/55
[2018-08-22 20:00] VITALS: BP 126/59
[2018-08-22 21:06] VITALS: BP 116/54
[2018-08-23] VITALS: BP 143/74
[2018-08-23 08:00] VITALS: BP 140/70
[2018-08-23 12:00] VITALS: BP 150/68
[2018-08-23 16:00] VITALS: BP 155/55
[2018-08-23 20:00] VITALS: BP 122/44
[2018-08-24] VITALS: BP 128/41
[2018-08-24 08:00] VITALS: BP 106/55
[2018-08-24 12:00] VITALS: BP 156/61
[2018-08-24 16:00] VITALS: BP 186/68
[2018-08-24 20:00] VITALS: BP 116/64; BP 151/80
[2018-08-25 08:23] VITALS: BP 118/72
[2018-08-25 12:00] VITALS: BP 118/44
[2018-08-25] MEDS ORDERED: DOXYCYCLINE100 MG PO (13:28)
[2018-08-25] MEDS ORDERED: VISTARIL25 MG PO (13:28)
[2018-08-25] MEDS ORDERED: DOXEPIN25 MG PO (13:28)
[2018-08-25] MEDS ORDERED: PREDNISONE10 MG PO (13:28)
== END 2018-08-25 14:09 | disposition home or self-care (01) | DRG 871 ==
LOC: ED 13:50 → 4E 17:01 → EDHOLD 17:01 → 4E 19:05
PROVIDERS: Internal Medicine; Internal Medicine Nephrology; Physician Assistant
DX: A41.9 Sepsis, unspecified organism (principal); J18.9 Pneumonia, unspecified organism; J44.1 Chronic obstructive pulmonary disease with (acute) exacerbation; J44.0 Chronic obstructive pulmonary disease with (acute) lower respiratory infection; F33.9 Major depressive disorder, recurrent, unspecified; E55.9 Vitamin D deficiency, unspecified; E78.5 Hyperlipidemia, unspecified; F41.1 Generalized anxiety disorder; N18.3 Chronic kidney disease, stage 3 (moderate); I12.9 Hypertensive chronic kidney disease with stage 1 through stage 4 chronic kidney disease, or unspecified chronic kidney disease; K59.00 Constipation, unspecified; E11.22 Type 2 diabetes mellitus with diabetic chronic kidney disease; F17.210 Nicotine dependence, cigarettes, uncomplicated; R31.9 Hematuria, unspecified; E87.6 Hypokalemia; M19.90 Unspecified osteoarthritis, unspecified site; E66.01 Morbid (severe) obesity due to excess calories; Z88.8 Allergy status to other drugs, medicaments and biological substances; Z98.51 Tubal ligation status; Z80.1 Family history of malignant neoplasm of trachea, bronchus and lung; Z83.3 Family history of diabetes mellitus; Z82.49 Family history of ischemic heart disease and other diseases of the circulatory system; Z82.3 Family history of stroke; Z84.89 Family history of other specified conditions; Z87.01 Personal history of pneumonia (recurrent); Z84.1 Family history of disorders of kidney and ureter; Z79.899 Other long term (current) drug therapy; Z79.82 Long term (current) use of aspirin; Z79.4 Long term (current) use of insulin

== ENCOUNTER 2018-09-20 18:37 | Inpatient (IN) | payer OTHER ==
[~2018-09-20] VITALS: Ht 160 cm; Wt 117.7 kg
--- NOTE | ~2018-09-20 | PR ---
[place], [place] PROGRESS NOTE [id number] UNIT #: [id number] ROOM: 412 DOCTOR: ANGELIQUE JACOBS MD,LAURA BIRTHDATE: [birth year] DOS: 09/26/2018 SUBJECTIVE: The patient has been doing very well. Bronchoscopy resulted in marked improvement and resolution of the wheezing and the cough. The patient's shortness of breath has improvement. Denies symptoms of chest pain. OBJECTIVE: VITAL SIGNS: Normal temperature, respiratory rate 16, heart rate 94, blood pressure 150/92. The pulse oxygen saturation recorded as 92% on room air. HEENT: Chronic obesity. NECK: Supple. CARDIOVASCULAR: S1, S2 is audible. LUNGS: Noted without any wheeze or crackles at the present time. ABDOMEN: Soft, nontender, bowel sounds present. EXTREMITIES: No acute change. LABORATORY DATA: The cultures of the bronchial washing noted normal regulo, final results are pending. IMPRESSION: The patient with improvement continued with acute exacerbation of chronic obstructive pulmonary disease, acute bronchitis, status post bronchoscopy, removal and extraction of the mucus plugs from the airways. PLAN OF TREATMENT: Discharge planning with oral prednisone and other medical management as previously addressed. Followup appointment could be established for further assessment of the patient's pulmonary status if desired by the patient. LAURA MERINO MD CM:PNTRANS 1319 1412 LAURA JACOBS MD 09/26/18 1413 interface
--- NOTE | ~2018-09-20 | EKG ---
[place], [place] ELECTROCARDIOGRAM REPORT NAME: TOM BREWSTER UNIT #: [id number] ROOM: 412 DOCTOR: JESUS DRAFT REPORT BIRTHDATE: [birth year] [facility] Test Date: 2018-09-23 Test Time: 13:43:27 Pat Name: TOM RBEWSTER Department: Room: 412 2 Gender: F Director Of Gift Planning: EKG.ME : 1965 Requested By: KENNA MURRELL Order Number: [id number] Reading MD: Marek Iverson MD Measurements Intervals [place] Rate: 93 P: 50 [place]: 191 QRS: 22 QRSD: 90 T: 26 QT: 355 QTc: 442 Interpretive Statements Sinus rhythm Left atrial enlargement Compared to ECG 09/20/2018 19:16:14 Right ventricular hypertrophy no longer present Inferior Q waves no longer present Q waves no longer present Electronically Signed On 09-30-2018 7:15:23 PST by Marek Iverson MD CM:EKGRPT:ELECTROCARDIOGRAM REPORT 1343 0715 KENNA MURRELL MD EPIPHANY DRAFT REPORT KENNA MURRELL MD
--- NOTE | ~2018-09-20 | PR ---
[place], [place] PROGRESS NOTE [id number] UNIT #: [id number] ROOM: 412 DOCTOR: ANGELIQUE JACOBS MD,LAURA BIRTHDATE: [birth year] DOS: 09/25/2018 PULMONARY PROGRESS NOTE SUBJECTIVE: The patient is noted comfortable at this time, resting on the bed, still noted with severe cough that remains nonproductive. There are no symptoms of hemoptysis. Chest pain is reported still in the lower portion of the rib cage because of nonproductive cough, which has been noted multiple times in the day. Denies symptoms of postnasal drainage. Denies symptoms of hematemesis, melena, nausea, vomiting, diarrhea, or abdominal pain. Denies symptoms of fever or chills. Denies any pain of the lower extremities. She is n.p.o. past midnight for bronchoscopy, which is planned to be done today. OBJECTIVE: VITAL SIGNS: Normal temperature, respiratory rate 17, heart rate of 103-94, blood pressure 145/69. Pulse oxygen saturation recorded as 95% at rest on room air. HEENT: Chronic obesity. Head is atraumatic. Eyes nonicterus. NECK: Supple. CARDIOVASCULAR: S1 and S2 audible. LUNGS: Decreased breath sounds noted in the lungs bilaterally. Expiratory wheezing. There are no crackles. ABDOMEN: Soft and obese. EXTREMITIES: No acute edema. MUSCULOSKELETAL: Without acute deformities. CENTRAL NERVOUS SYSTEM. Cranial nerves 2 through 12 intact. LABORATORY DATA: CBC today: WBC count 12.3, hemoglobin 9.7, hematocrit 30.7, platelet count of 298,000. BMP this morning: BUN 20, creatinine 1.16, glucose 279. IMPRESSION: 1. Persistent respiratory symptoms of nonproductive cough with wheezing and shortness of breath, not responding to treatment, here for bronchoscopy. 2. Chronic obesity as well. PLAN OF MANAGEMENT: No changes in the plan of care at this time. Continuation of bronchodilators and oxygen supplementation. Proceed with bronchoscopy. Dose of Solu-Medrol would be decreased to 40 mg b.i.d. after the bronchoscopy. Other therapy, plan of management as in progress would be continued. Supportive care with any additional treatment changes if necessary will be ordered after the bronchoscopy. [place], [place] PROGRESS NOTE NAME: TOM BREWSTER UNIT #: [id number] ROOM: [facility] DOCTOR: LAURA BUCKNER MD BIRTHDATE: [birth year] LAURA MERINO MD CM:PNTRANS [id number] LAURA JACOBS MD 09/25/18 1416 interface
--- NOTE | ~2018-09-20 | CON ---
[place], [place] REPORT OF CONSULTATION NAME: TOM BREWSTER [facility] #: [id number] UNIT #: [id number] ROOM: 412 DOCTOR: ANGELIQUE JACOBS MDLAURA BIRTHDATE: [birth year] DOS: 09/23/2018 PULMONARY CONSULTATION, EVALUATION AND MANAGEMENT CONSULTATION REQUESTED BY: Marek Iverson MD REASON FOR CONSULTATION: Assessment of current ongoing respiratory symptoms, nonresolving with COPD. HISTORY OF PRESENT ILLNESS: This is a 53-year-old female patient who has been admitted to the hospital with reported symptoms of ongoing nausea, vomiting and other symptoms on admission. She has been hospitalized since 09/20/2018. The patient has been admitted to the hospital currently treated for acute exacerbation of COPD and upper GI symptoms. She has been reporting symptoms of increased coughing, chest congestion and wheezing and shortness of breath occurred after the upper respiratory tract infection symptoms with postnasal drainage and chest congestion. The patient's symptoms have been noted progressive at this time, not responding to the current medical management effectively. The patient denies symptoms of hemoptysis. The cough still remains with intermittent small sputum expectoration most of the time has been reported dry. REVIEW OF SYSTEMS: CONSTITUTIONAL: Fatigue and tiredness reported with symptoms of fever or chills on admission, which were resolved. There were no symptoms of fever on admission. EYES: Denies any redness or discharge. Postnasal drainage. The patient nasal congestion seemed to be better. CARDIOVASCULAR: Denies anginal pain, edema, pain of the lower extremity, or palpitation. GASTROINTESTINAL SYMPTOMS: Denies dysphagia, nausea, vomiting, diarrhea, abdominal pain, hematemesis, melena, hematochezia, or abnormal weight loss. Denies dysphagia. GENITOURINARY: No dysuria, suprapubic pain, or hematuria. MUSCULOSKELETAL: No acute joint pain, redness, or tenderness. SKIN: Denies lesions or rashes. CENTRAL NERVOUS SYSTEM: Denies dizziness, headache, diplopia, tingling sensation or syncopal episodes. Occasional seizures. Remaining systems were reviewed, they were noted all negative. PAST MEDICAL HISTORY: Noted as: 1. COPD. 2. Chronic kidney disease stage 3. 3. Type 2 diabetes mellitus. 4. General anxiety disorder. 5. Essential hypertension. 6. Hyperlipidemia. 7. Chronic obesity. 8. Vitamin D deficiency. [place], [place] REPORT OF CONSULTATION NAME: TOM BREWSTER UNIT #: [id number] ROOM: 412 DOCTOR: ANGELIQUE JACOBS MD,LAURA BIRTHDATE: [birth year] PAST SURGICAL HISTORY: Noted as . SOCIAL HISTORY: The patient was noted with chronic tobacco use from a teenager, started at the age of [age] years old. She was smoking a pack of cigarettes per day and recently decreased the tobacco use to about 6 cigarettes a day as per patient. Denies any history of alcohol use. The patient denies any illicit drug use. FAMILY HISTORY: Both parents . Father with complication of brain aneurysm and mother with complications of lung cancer. HOME MEDICATIONS: Listed as several that includes Geodon, sertraline, Actos, Percocet, nicotine patch, Atarax, hydrochlorothiazide, gabapentin, ferrous sulfate, doxepin, Flexeril, Rexulti, Lipitor, aspirin, Norvasc, Xanax, alogliptin and Ventolin HFA inhaler. CURRENT MEDICATIONS: Administered for on this admission from the pulmonary standpoint was noted with the use of DuoNeb q.4h., Solu-Medrol 40 mg b.i.d., intravenous vancomycin, Zithromax and IV Rocephin. DRUG ALLERGY HISTORY: The patient was noted as allergy: 1. Lisinopril. 2. Celexa. PHYSICAL EXAMINATION: GENERAL: A 53-year-old female patient who has been noted currently awake and alert without acute distress. Height of 5 feet 3 inches, weight of 259 pounds, BMI 45. VITAL SIGNS: The patient recorded as normal temperature to 99.6 Fahrenheit in the last 48 hours. The respiratory rate range between 18-16, heart rate of 112-101 with sinus tachycardia, blood pressure 136/76 to 126/62. Pulse ox saturation on room air was 91% saturation. HEENT: Chronic obesity. Head was atraumatic. Decreased posterior pharyngeal space, high tongue base crowding of soft tissue structures. NECK: Supple. CARDIOVASCULAR: S1, S2 is audible. LUNGS: Moderate decreased breath sounds with expiratory wheezing without any crackles. ABDOMEN: Soft, obese, nontender. Bowel sounds present. EXTREMITIES: No acute edema. MUSCULOSKELETAL: Cranial nerves 2-12 intact. No focal deficit. LABORATORY DATA: CBC on 09/20/2018, WBC count of 13.4, platelet count 449,000, normal hemoglobin and hematocrit. Lactic acid 2.3 on admission was 2.0 on 09/20/2018. Urine drug screen positive for amphetamines, benzodiazepines, THC and cocaine. The CMP that was done on 09/20/2018, BUN 32, creatinine 1.66, glucose 130 sodium 134 on admission as well. Nasal washing antigen A and B on admission was negative. The CBC was repeated on 09/22/2018, WBC count 12,000, hemoglobin 10.3, platelet count was normal. Blood culture from admission, [place], [place] REPORT OF CONSULTATION NAME: TOM BREWSTER UNIT #: [id number] ROOM: [facility] DOCTOR: ANGELIQUE JACOBS MD,[facility] BIRTHDATE: [birth year] 09/20/2018, one of the blood cultures noted gram-positive cocci in clusters and other 3 blood cultures on the same date was noted without any bacterial growth. The review of the radiology DATA, chest x-ray that was done on 09/20/2018, showed no bacterial growth. CT scan of the abdomen and pelvis completed on 09/21/2018 with the radiologist report as mentioned showed acute abnormalities. Lower portion of the abdomen does not show any acute pulmonary infiltration or pleural fluid as assessed. IMPRESSION: 1. The patient will be currently admitted to the hospital with ongoing acute exacerbation of chronic obstructive pulmonary disease, acute bronchitis with partial improvement in symptoms. 2. Gram-positive cocci bacteremia with possibility of contamination could very likely rather than true infection. 3. Morbid obesity with consideration of obstructive sleep apnea disorder. 4. Chronic nicotine dependence as well. Other medical illnesses, illicit drug use in the form of cocaine, amphetamine, and THC was identified on admission. PLAN OF THERAPY: Solu-Medrol dose will be changed to 60 mg q.8 hours for 24 hours and then the dose will be decreased. Continuation of bronchodilator. No change in antibiotic will be necessary. Follow the results of the blood culture to determine contamination and stool infection. Bronchodilator will be changed to albuterol sulfate from the DuoNe as well. Continuation of the nicotine replacement patches, therapy, plan of management, care plan with additional treatment changes will be made in the treatment based on the progression of the illness. If the respiratory symptoms remain persistent does not improve with a current conducted therapy, consider fiberoptic bronchoscopy in the next 48 hours. Other plan of therapy and care plan for the patient at this time without any changes. Usual care. Abstinence of tobacco use was encouraged. Thanks for allowing me to participate in the care of this patient. LAURA MERINO MD CM:CONSTR:REPORT OF CONSULTATION 1244 09/24/18 0055 interface
--- NOTE | ~2018-09-20 | PR ---
[place], [place] PROGRESS NOTE NAME: TOM BREWSTER [facility] #: [id number] UNIT #: [id number] ROOM: 412 DOCTOR: ANGELIQUE JACOBS MD,LAURA BIRTHDATE: [birth year] DOS: 09/24/2018 PULMONARY PROGRESS NOTE SUBJECTIVE: The patient was still complaining of severe cough with minimal improvement in past few hours. She was still complaining of symptoms of shortness of breath that occurs with exertion with wheezing. Chest pain also reported lower portion with excessive coughing, which has been noted episodic. Head congestion was also reported. Denies symptoms of nausea, vomiting, diarrhea, abdominal pain, hematemesis, melena, or hematuria. Denies any skin lesions. Remaining systems were reviewed, they were noted all negative. PHYSICAL EXAMINATION: VITAL SIGNS: For the patient has a normal temperature, respiratory rate 18, heart rate of 104-93, blood pressure 146/77 to 151/80. Pulse oxygen saturation on room air at rest was 92% saturation. HEENT: Chronic obesity. Head was atraumatic. Eyes nonicterus. Decreased posterior pharyngeal space with high tongue base and crowding of soft tissue structures. CARDIOVASCULAR: S1, S2 audible. No added sounds. LUNGS: Noted with expiratory wheezing in the lungs bilaterally. No crackles. ABDOMEN: Soft, nontender. EXTREMITIES: Chronic obesity without edema, clubbing, or cyanosis. VISIBLE SKIN: No lesions or rashes. MUSCULOSKELETAL: Without acute deformities. CENTRAL NERVOUS SYSTEM: Intact. LABORATORY DATA: CBC today, WBC count 14.5, hemoglobin 10.3, hematocrit 33.2, platelet count 318,000. BMP, BUN 35, creatinine 1.32, glucose 274. Sodium 135. Blood culture from the 09/20/2017 noted as Staph hominis. IMPRESSION: Ongoing severe acute exacerbation of chronic obstructive pulmonary disease with acute bronchitis with nonproductive cough gram-positive cocci bacteremia, Staphylococcus hominis, possible contamination, chronic obesity, history of nicotine. PLAN OF MANAGEMENT: The patient has been assessed. The patient will be undergoing therapeutic bronchoscopy tomorrow morning because of severe cough. Musculoskeletal chest pain, which is symptomatic. Decrease the dose of Solu-Medrol in the lower dose 40 mg q.8h. Continue current antibiotic. No change in treatment. Other supportive plan of management and additional change in treatment will be made based on the progression of the illness. [place], [place] PROGRESS NOTE NAME: TOM BREWSTER UNIT #: [id number] ROOM: 412 DOCTOR: LAURA BUCKNER MD BIRTHDATE: [birth year] LAURA MERINO MD CM:PNTRANS [id number] LAURA JACOBS MD 10/06/18 0912 interface
--- NOTE | ~2018-09-20 | EKG ---
[place], [place] ELECTROCARDIOGRAM REPORT NAME: TOM BREWSTER UNIT #: [id number] ROOM: 412 DOCTOR: EPIPHANY DRAFT REPORT BIRTHDATE: [birth year] [facility] [place] [facility] Test Date: 2018-09-20 Test Time: 19:16:14 Pat Name: TOM BREWSTER Department: 4E Room: 412 Gender: F Decorator Hand: Suresh [place] : 1965 Requested By: NAYANA BLACKMAN Order Number: [id number] Reading MD: Zeenat Boykin MD Measurements Intervals [place] Rate: 94 P: 42 NM: 181 QRS: -9 QRSD: 98 T: 24 QT: 381 QTc: 477 Interpretive Statements Sinus rhythm Left atrial enlargement RSR' in V1 or V2, right VCD or RVH Abnormal inferior Q waves Compared to ECG 08/17/2018 14:02:18 Atrial abnormality now present Electronically Signed On 09-22-2018 4:53:07 PST by Zeenat Boykin MD CM:EKGRPT:ELECTROCARDIOGRAM REPORT [id number] NAYANA BLACKMAN EPIPHANY DRAFT REPORT NAYANA BLACKMAN
--- NOTE | ~2018-09-20 | PROC NOTE ---
[place], [place] PROCEDURE NOTE NAME: TOM BREWSTER UNIT #: [id number] ROOM: 412 DOCTOR: ANGELIQUE JACOBS MD,LAURA BIRTHDATE: [birth year] DOS: 09/25/2018 PREOPERATIVE DIAGNOSES: Severe cough, wheezing, not responding to current maximum medical management. POSTOPERATIVE DIAGNOSIS: Successful removal of the moderate amount of mucus impaction of the airways bilaterally without difficulty. There were no endobronchial obstructive lesions. COMPLICATIONS: None. PROCEDURE DESCRIPTION: After informed consent from the patient. The patient was brought to the OR and placed in supine position. Conscious sedation was administered by the Anesthesia Department. After that, airway into the mouth. Bronchoscope advanced to airway into laryngeal area. Epiglottis and vocal cords were seen. Vocal cords moving symmetrically with movements. Bronchoscope entered vocal cord. Tracheal lumen shows moderate amount of thick mucus, which was suctioned out. Elina was noted sharp after that. The right upper, right middle, right lower, left upper, lingular lower lobe bronchi all examined and were noted impacted with moderate amount of mucus. All the secretions suctioned out with the help of normal saline wash, sent for culture. Procedure was tolerated by the patient without difficulty. Postoperative findings will be discussed with the patient when the patient recovers the effects of acute sedation. LAURA MERINO MD CM:PROCNOTE:PROCEDURE NOTE [id number] LAURA JACOBS MD
[~2018-09-20 18:37] MED LIST changes: -ACETAMINOPHEN-O1 TAB PO; +DOXEPIN25 MG PO; +DOXYCYCLINE100 MG PO; +PERCOCET 5-3251 EACH PO
[2018-09-20 18:41] VITALS: BP 150/79
[2018-09-20 19:23] LABS: BASO # 0.1 10*3/uL (0.0-0.1); BASO % 0.6 % (0.0-1.0); EOS # 0.1 10*3/uL (0.0-0.4); EOS % 0.4 % (1.0-4.0); HEMATOCRIT 39.5 % (37.0-47.0); HEMOGLOBIN 12.7 g/dl (12.0-16.0); LYMPH # 2.4 10*3/uL (1.3-4.4); LYMPH % 18.3 % (27.0-41.0); MEAN CELL VOLUME 83.9 fl (81.0-99.0); MEAN CORPUSCULAR HGB CONC 32.2 g/dl (33.0-37.0); MONO # 0.8 10*3/uL (0.1-1.0); MONO % 5.7 % (3.0-9.0); NEUT # 9.9 10*3/uL (2.3-7.9); NEUT % 74.2 % (47.0-73.0); PLATELET COUNT AUTOMATED 449 10*3/uL (130-400); RED BLOOD COUNT 4.71 10*6/uL (4.10-5.10); RED CELL DISTRI WIDTH 17.2 % (0-14.5); WHITE BLOOD COUNT 13.4 10*3/uL (4.8-10.8)
[2018-09-20 19:24] LABS: BILIRUBIN 2+ (NEGATIVE); BLOOD 1+ (NEGATIVE); CLARITY SL CLOUDY (CLEAR); COLOR YELLOW (YELLOW); GLUCOSE NEGATIVE (NEGATIVE); KETONE TRACE (NEGATIVE); LEUKO ESTERASE TRACE (NEGATIVE); NITRITE NEGATIVE (NEGATIVE); PH 5.5 (5.0-9.0); SPECIFIC GRAVITY >= 1.030 (1.005-1.030); UROBILINOGEN 0.2 E.U./dl (0.2-1.0)
[2018-09-20 19:31] LABS: URINE AMPHETAMINES > 1000 (1000ng/ml); URINE BARBITURATES < 200 (200ng/ml); URINE BENZODIAZEPINES > 200 (200ng/ml); URINE CANNABINOIDS (THC) > 50 (50ng/ml); URINE COCAINE > 300 (300ng/ml); URINE METHADONE < 300 (300ng/ml); URINE OPIATES < 300 (300ng/ml)
[2018-09-20 19:33] LABS: URINE PHENCYCLIDINE < 25 (25ng/ml)
[2018-09-20 19:39] LABS: BACTERIA 2+; EPITHELIAL CELLS 51-100
[2018-09-20 19:39] LABS: ALBUMIN 3.5 gm/dl (3.1-4.5); CREATININE 1.66 mg/dL (0.55-1.02); POTASSIUM 3.6 mmol/L (3.5-5.1); TOTAL PROTEIN 8.4 gm/dL (6.4-8.2)
[2018-09-20 19:57] VITALS: BP 162/77
[2018-09-20 20:41] VITALS: BP 155/81
[2018-09-20 21:47] VITALS: BP 173/82
[2018-09-20 22:42] VITALS: BP 154/83
[2018-09-20] MEDS ORDERED: ZIPRASIDONE HCL20 M1 PO (23:39)
[2018-09-20] MEDS ORDERED: FEROSUL325 MG PO (23:40)
[2018-09-21] VITALS: BP 150/72
[2018-09-21 08:00] VITALS: BP 142/78
[2018-09-21 12:00] VITALS: BP 130/69
[2018-09-21 16:00] VITALS: BP 134/66
[2018-09-21 20:00] VITALS: BP 120/48
[2018-09-22] VITALS: BP 141/65
[2018-09-22 06:07] LABS: BASO % 0.2 % (0.0-1.0); LYMPH # 1.2 10*3/uL (1.3-4.4); MEAN CELL VOLUME 83.7 fl (81.0-99.0); MEAN CORPUSCULAR HGB 26.7 pg (27.0-31.0); MEAN CORPUSCULAR HGB CONC 31.9 g/dl (33.0-37.0); MEAN PLATELET VOLUME 10.7 fl (9.6-12.3); MONO # 0.5 10*3/uL (0.1-1.0); MONO % 4.1 % (3.0-9.0); NEUT # 10.2 10*3/uL (2.3-7.9); NEUT % 84.4 % (47.0-73.0); PLATELET COUNT AUTOMATED 320 10*3/uL (130-400); RED BLOOD COUNT 3.86 10*6/uL (4.10-5.10); RED CELL DISTRI WIDTH 17.2 % (0-14.5)
[2018-09-22 06:09] LABS: HEMATOCRIT 32.3 % (37.0-47.0); HEMOGLOBIN 10.3 g/dl (12.0-16.0)
[2018-09-22 06:21] LABS: CREATININE 1.59 mg/dL (0.55-1.02); POTASSIUM 3.8 mmol/L (3.5-5.1)
[2018-09-22 08:02] VITALS: BP 134/64
[2018-09-22 12:00] VITALS: BP 130/60
[2018-09-22 16:00] VITALS: BP 129/57
[2018-09-22 20:00] VITALS: BP 126/62
[2018-09-23] VITALS: BP 133/78
[2018-09-23 08:00] VITALS: BP 136/74
[2018-09-23 12:00] VITALS: BP 140/76
[2018-09-23 16:00] VITALS: BP 129/55
[2018-09-23 20:00] VITALS: BP 151/80
[2018-09-24] VITALS: BP 146/77
[2018-09-24 07:18] LABS: HEMATOCRIT 33.2 % (37.0-47.0); HEMOGLOBIN 10.3 g/dl (12.0-16.0); MEAN CELL VOLUME 85.1 fl (81.0-99.0); MEAN CORPUSCULAR HGB 26.4 pg (27.0-31.0); PLATELET COUNT AUTOMATED 318 10*3/uL (130-400); RED CELL DISTRI WIDTH 17.4 % (0-14.5); WHITE BLOOD COUNT 14.5 10*3/uL (4.8-10.8)
[2018-09-24 07:44] LABS: CREATININE 1.32 mg/dL (0.55-1.02); POTASSIUM 4.1 mmol/L (3.5-5.1)
[2018-09-24 08:12] LABS: BASOPHILS 1 % (0-1); TOTAL CELLS COUNTED 100 #CELLS
[2018-09-24 08:13] LABS: OVALOCYTES FEW; PLATELET SUFFICIENCY NORMAL (NORMAL); POLYCHROMASIA SLIGHT
[2018-09-24 12:00] VITALS: BP 136/77
[2018-09-24 16:00] VITALS: BP 149/84
[2018-09-24 20:00] VITALS: BP 145/69
[2018-09-25] VITALS (8 sets, daily range): BP systolic 139–172; BP diastolic 69–93
[2018-09-25 06:42] LABS: HEMATOCRIT 30.7 % (37.0-47.0); HEMOGLOBIN 9.7 g/dl (12.0-16.0); MEAN CELL VOLUME 84.8 fl (81.0-99.0); MEAN CORPUSCULAR HGB 26.8 pg (27.0-31.0); MEAN CORPUSCULAR HGB CONC 31.6 g/dl (33.0-37.0); NUCLEATED RED BLOOD CELL 0.2 % (0.0-0.0); PLATELET COUNT AUTOMATED 298 10*3/uL (130-400); RED BLOOD COUNT 3.62 10*6/uL (4.10-5.10); RED CELL DISTRI WIDTH 17.2 % (0-14.5); WHITE BLOOD COUNT 12.3 10*3/uL (4.8-10.8)
[2018-09-25 06:58] LABS: CREATININE 1.16 mg/dL (0.55-1.02); POTASSIUM 4.1 mmol/L (3.5-5.1)
[2018-09-25 07:51] LABS: OVALOCYTES FEW; POLYCHROMASIA SLIGHT; TOTAL CELLS COUNTED 100 #CELLS
[2018-09-25 07:52] LABS: PLATELET SUFFICIENCY NORMAL (NORMAL)
[2018-09-26] VITALS: BP 125/45
[2018-09-26 05:54] LABS: HEMATOCRIT 31.2 % (37.0-47.0); MEAN CELL VOLUME 84.6 fl (81.0-99.0); MEAN CORPUSCULAR HGB 27.1 pg (27.0-31.0); MEAN CORPUSCULAR HGB CONC 32.1 g/dl (33.0-37.0); MEAN PLATELET VOLUME 10.7 fl (9.6-12.3); NUCLEATED RED BLOOD CELL 0.2 % (0.0-0.0); PLATELET COUNT AUTOMATED 300 10*3/uL (130-400); RED BLOOD COUNT 3.69 10*6/uL (4.10-5.10); RED CELL DISTRI WIDTH 17.2 % (0-14.5); WHITE BLOOD COUNT 13.2 10*3/uL (4.8-10.8)
[2018-09-26 06:18] LABS: BUN 25 mg/dl (7-24); CHLORIDE 101 mmol/L (98-107); CREATININE 1.12 mg/dL (0.55-1.02); POTASSIUM 3.6 mmol/L (3.5-5.1); SODIUM 137 mmol/L (136-145)
[2018-09-26 06:32] LABS: TOTAL CELLS COUNTED 100 #CELLS
[2018-09-26 06:33] LABS: PLATELET SUFFICIENCY NORMAL (NORMAL)
[2018-09-26 08:06] VITALS: BP 150/92
[2018-09-26 12:00] VITALS: BP 158/72
[2018-09-26] MEDS ORDERED: PREDNISONE10 MG PO (13:20)
[2018-09-26] MEDS ORDERED: MUCINEX ER600 MG PO (13:20)
[2018-09-26] MEDS ORDERED: HYDROXYZINE PAM25 M1 PO (13:20)
[2018-09-26] MEDS ORDERED: LEVAQUIN750 M1 PO (13:20)
[2018-09-26 14:07] LABS: ACID FAST SPEC PROCESSING Concentration (.)
[2018-11-06 12:07] LABS: ACID FAST CULTURE Negative (.)
== END 2018-09-26 13:36 | disposition home or self-care (01) | DRG 193 ==
LOC: ED 18:37 → EDHOLD 22:09 → 4E 22:09
PROVIDERS: Internal Medicine Critical Care Medicine; Internal Medicine Nephrology; Nurse Practitioner Family; Student in an Organized Health Care Education/Training Program; ADMIT Internal Medicine
PROC: 0BC18ZZ Extirpation of Matter from Trachea, Via Natural or Artificial Opening Endoscopic (ICD-10-PCS; principal; 2018-09-25)
PROC: 0BC98ZZ Extirpation of Matter from Lingula Bronchus, Via Natural or Artificial Opening Endoscopic (ICD-10-PCS; 2018-09-25)
PROC: 0BC48ZZ Extirpation of Matter from Right Upper Lobe Bronchus, Via Natural or Artificial Opening Endoscopic (ICD-10-PCS; 2018-09-25)
PROC: 0BC88ZZ Extirpation of Matter from Left Upper Lobe Bronchus, Via Natural or Artificial Opening Endoscopic (ICD-10-PCS; 2018-09-25)
PROC: 0BC58ZZ Extirpation of Matter from Right Middle Lobe Bronchus, Via Natural or Artificial Opening Endoscopic (ICD-10-PCS; 2018-09-25)
PROC: 0BC38ZZ Extirpation of Matter from Right Main Bronchus, Via Natural or Artificial Opening Endoscopic (ICD-10-PCS; 2018-09-25)
PROC: 0BC78ZZ Extirpation of Matter from Left Main Bronchus, Via Natural or Artificial Opening Endoscopic (ICD-10-PCS; 2018-09-25)
PROC: 0BC68ZZ Extirpation of Matter from Right Lower Lobe Bronchus, Via Natural or Artificial Opening Endoscopic (ICD-10-PCS; 2018-09-25)
PROC: 0BCB8ZZ Extirpation of Matter from Left Lower Lobe Bronchus, Via Natural or Artificial Opening Endoscopic (ICD-10-PCS; 2018-09-25)
DX: J18.9 Pneumonia, unspecified organism (principal); R65.11 Systemic inflammatory response syndrome (SIRS) of non-infectious origin with acute organ dysfunction; J44.1 Chronic obstructive pulmonary disease with (acute) exacerbation; E87.1 Hypo-osmolality and hyponatremia; F33.9 Major depressive disorder, recurrent, unspecified; T17.590A Other foreign object in bronchus causing asphyxiation, initial encounter; T17.490A Other foreign object in trachea causing asphyxiation, initial encounter; Z68.42 Body mass index [BMI] 45.0-49.9, adult; N17.9 Acute kidney failure, unspecified; J44.0 Chronic obstructive pulmonary disease with (acute) lower respiratory infection; T39.95XA Adverse effect of unspecified nonopioid analgesic, antipyretic and antirheumatic, initial encounter; N14.0 Analgesic nephropathy; I12.9 Hypertensive chronic kidney disease with stage 1 through stage 4 chronic kidney disease, or unspecified chronic kidney disease; E66.01 Morbid (severe) obesity due to excess calories; M19.90 Unspecified osteoarthritis, unspecified site; E11.22 Type 2 diabetes mellitus with diabetic chronic kidney disease; F41.1 Generalized anxiety disorder; E78.5 Hyperlipidemia, unspecified; N18.3 Chronic kidney disease, stage 3 (moderate); X58.XXXA Exposure to other specified factors, initial encounter; R91.1 Solitary pulmonary nodule; F19.10 Other psychoactive substance abuse, uncomplicated; F17.210 Nicotine dependence, cigarettes, uncomplicated; R31.9 Hematuria, unspecified; J20.9 Acute bronchitis, unspecified; Z88.8 Allergy status to other drugs, medicaments and biological substances; Z98.51 Tubal ligation status; Z98.891 History of uterine scar from previous surgery; Z80.1 Family history of malignant neoplasm of trachea, bronchus and lung; Z84.1 Family history of disorders of kidney and ureter; Z82.3 Family history of stroke; Z83.3 Family history of diabetes mellitus; Z82.49 Family history of ischemic heart disease and other diseases of the circulatory system; Z71.6 Tobacco abuse counseling; Y93.89 Activity, other specified; Y92.89 Other specified places as the place of occurrence of the external cause; Y99.8 Other external cause status

== ENCOUNTER 2018-12-28 17:28 | Inpatient (IN) | payer OTHER ==
[~2018-12-28] VITALS: Ht 160 cm; Wt 109.9 kg
--- NOTE | ~2018-12-28 | EKG ---
[place], [place] ELECTROCARDIOGRAM REPORT NAME: TOM BREWSTER UNIT #: [id number] ROOM: 402 DOCTOR: JESUS DRAFT REPORT BIRTHDATE: [birth year] [facility] Test Date: 2018-12-28 Test Time: 17:59:41 Pat Name: TOM BREWSTER Department: Room: 402 Gender: F [employer]: RUSS : 1965 Requested By: CALLI RG Order Number: [id number] Reading MD: Placido Alcantara MD Measurements Intervals [place] Rate: 99 P: 37 NE: 172 QRS: -10 QRSD: 110 T: 24 QT: 398 QTc: 511 Interpretive Statements Sinus rhythm Probable left atrial enlargement Incomplete RBBB Prolonged QT interval Baseline wander in lead(s) V2 Compared to ECG 11/26/2018 09:57:25 Prolonged QT interval now present Electronically Signed On 12-29-2018 8:07:01 PDT by Placido Alcantara MD CM:EKGRPT:ELECTROCARDIOGRAM REPORT [id number] CALLI LEE DRAFT REPORT CALLI DIMAS
--- NOTE | ~2018-12-28 | CON ---
[place], [place] REPORT OF CONSULTATION NAME: TOM BREWSTER [facility] #: [id number] UNIT #: [id number] ROOM: 402 DOCTOR: MELODY ABRAHAMFLYNNKIRILL BIRTHDATE: [birth year] DOS: 12/29/2018 GASTROENDOSCOPIC CONSULTATION HISTORY OF PRESENT ILLNESS: This is a 53-year-old patient who has presented with chief complaint of nausea, epigastric distress, and nonspecific abdominal pain. At the time of admission, white blood cell was 10, H and H of 15 and 44. Lactic acid was 3.5. INR was 1.0. Comprehensive metabolic panel: BUN and creatinine 26 and 1.9. Electrolytes, hyponatremic, hypokalemia, and hypochloremic as well. C-reactive protein was 2.2. BNP 142. Troponin was negative. CT scan of the abdomen and pelvis was reassessed, limited suspicious for retained stool. She has been given MiraLax and it has helped. White blood cell is 6.2. Renal ultrasound, no specific finding. Glucose random greater than 400. PAST MEDICAL HISTORY: Associated with COPD, degenerative joint disease, hyperglycemia labile, bronchitis, systemic hypertension, diabetes mellitus, and morbid obesity. PAST SURGICAL HISTORY: . SOCIAL HISTORY: Nonsmoker at the present time, but she is using recreational drugs, marijuana, cocaine, and amphetamines. Nonalcohol consumer. FAMILY HISTORY: Noncontributory. ALLERGIES: LISINOPRIL AND CELEXA. MEDICATIONS: List has been reviewed. REVIEW OF SYSTEMS: HEENT: Denies double vision, blurred vision. RESPIRATORY: Denies acute shortness of breath. CARDIOVASCULAR: Denies acute chest pain. DIGESTIVE SYSTEM: Nausea, epigastric pain, abdominal pain. PHYSICAL EXAMINATION: VITAL SIGNS: Stable. HEENT: Within normal limit. NECK: Supple, no thyromegaly, no cervical lymphadenopathy. CHEST: Symmetric anatomy, equal expansion. No wheeze, no rhonchi. HEART: Normal sinus rhythm, no gallop, no murmur. ABDOMEN: Obese, large, soft. No hepato-organomegaly. Bowel sounds present. EXTREMITIES: No cyanosis, no pedal edema. NEUROLOGIC: Alert and oriented. IMPRESSION: Nonspecific abdominal pain, nausea, hyperglycemia, glucose level of 476, pseudohyponatremia as well as hypokalemia noticed. CT scan of the abdomen and pelvis has been reassessed again. Stools are being addressed with laxatives. Labile hyperglycemia, pseudohyponatremia, and hypokalemia. [place], [place] REPORT OF CONSULTATION NAME: TOM BREWSTER UNIT #: [id number] ROOM: [facility] DOCTOR: MELODY ABRAHAM,MANSOOR BIRTHDATE: [birth year] PLAN AND DISCUSSION: The nausea can be addressed with an endoscopy that is going to be organized. Antiemetics and PPI is going to be organized, supportive management and an EGD on Saturday. MANSOOR OLIVER MD CM:CONSTR:REPORT OF CONSULTATION 2239 01/21/19 0728 interface
--- NOTE | ~2018-12-28 | PR ---
[place], [place] PROGRESS NOTE NAME: TOM BREWSTER UNIT #: [id number] ROOM: 402 DOCTOR: MELODY ABRAHAMMANSOOR BIRTHDATE: [birth year] DOS: 12/31/2018 SUBJECTIVE: A 53-year-old patient, who has presented with epigastric distress, nausea, abdominal pain, and appropriate H and H. PAST MEDICAL HISTORY: COPD, DJD, systemic hypertension, hyperglycemia, diabetes mellitus, and morbid obesity. PAST SURGICAL HISTORY: . REVIEW OF SYSTEMS: HEENT: In general, denies double vision, blurred vision. RESPIRATORY: Denies acute shortness of breath. CARDIOVASCULAR: Denies acute chest pain. DIGESTIVE SYSTEM: She has nausea, vomiting, abdominal pain, and diarrhea. PHYSICAL EXAMINATION: GENERAL: Obese patient. She is well-nourished. HEENT: Within normal limits. NECK: Supple, no thyromegaly, no cervical lymphadenopathy. CHEST: Symmetric anatomy, equal expansion. No wheeze. HEART: Normal sinus rhythm, no gallop, no murmur. ABDOMEN: Soft. No hepato-organomegaly. Bowel sounds present. EXTREMITIES: No cyanosis, no pedal edema. NEUROLOGIC: She is alert and oriented. LABORATORY DATA: Labs have been reviewed. Records have been reviewed. The patient has been on schedule for EGD, colonoscopy today; however, she chose to eat to cancel her procedure. Procalcitonin is 0.09. Basic metabolic panel, electrolyte balanced except potassium of 2.8, potassium was supplemented already and therefore since she ate we had to cancel her procedure; however, there is a chance to reschedule her if her symptomatology persist, on Saturday, which is less than 48 hours from now. DIAGNOSTIC DATA: Renal ultrasound data also available, right renal cortical thickening, no hydronephrosis has been reported. IMPRESSION: Abdominal pain, epigastric distress, nausea, vomiting, and hypokalemia. Other adjunctive diagnoses as outlined in past medical history including diabetes mellitus, chronic obstructive pulmonary disease, degenerative joint disease, hyperglycemia, and bronchitis. PLAN AND DISCUSSION: Therefore, we are going to investigate the guaiac positivity on Saturday with EGD and colonoscopy. [place], [place] PROGRESS NOTE NAME: TOM BREWSTER UNIT #: [id number] ROOM: [facility] DOCTOR: MANSOOR OLIVER MD BIRTHDATE: [birth year] MANSOOR OLIVER MD CM:KATHERINE [id number] MANSOOR OLIVER MD 01/21/19 0726 interface
[~2018-12-28 17:28] MED LIST changes: +FEROSUL325 MG PO; +HYDROXYZINE PAM25 M1 PO; +MUCINEX ER600 MG PO; +VIBRAMYCIN100 MG PO; +ZIPRASIDONE HCL20 M1 PO
[2018-12-28 17:30] VITALS: BP 153/67
[2018-12-28 17:58] VITALS: BP 150/77
[2018-12-28 18:18] LABS: BASO % 0.4 % (0.0-1.0); EOS # 0.1 10*3/uL (0.0-0.4); EOS % 0.5 % (1.0-4.0); HEMATOCRIT 44.6 % (37.0-47.0); LYMPH # 1.8 10*3/uL (1.3-4.4); LYMPH % 17.7 % (27.0-41.0); MEAN CELL VOLUME 84.6 fl (81.0-99.0); MEAN CORPUSCULAR HGB 28.5 pg (27.0-31.0); MEAN CORPUSCULAR HGB CONC 33.6 g/dl (33.0-37.0); MEAN PLATELET VOLUME 10.9 fl (9.6-12.3); MONO # 0.8 10*3/uL (0.1-1.0); NEUT # 7.4 10*3/uL (2.3-7.9); NEUT % 72.6 % (47.0-73.0); PLATELET COUNT AUTOMATED 337 10*3/uL (130-400); RED BLOOD COUNT 5.27 10*6/uL (4.10-5.10); RED CELL DISTRI WIDTH 13.5 % (0-14.5); WHITE BLOOD COUNT 10.1 10*3/uL (4.8-10.8)
[2018-12-28 18:32] LABS: ACT PARTIAL THROMBO TIME 23.6 SECONDS (20.8-31.5); INTERNATIONAL NORM RATIO 1.2 (2.0-3.5)
[2018-12-28 18:33] LABS: ALBUMIN 3.5 gm/dl (3.1-4.5); ALKALINE PHOSPHATASE 137 U/L (45-117); BUN 26 mg/dl (7-24); CHLORIDE 86 mmol/L (98-107); CREATININE 1.93 mg/dL (0.55-1.02); LIPASE 41 U/L (73-393); SGOT/AST 14 IU/L (3-35); SGPT/ALT 22 U/L (12-78); SODIUM 129 mmol/L (136-145); TOTAL PROTEIN 8.1 gm/dL (6.4-8.2)
[2018-12-28 18:45] LABS: TROPONIN I < 0.015 ng/ml (<0.045)
[2018-12-28 19:28] VITALS: BP 127/41
--- NOTE | 2018-12-28 19:29 | NUR ---
PT REFUSES TO BE STRAIGHT CATHED FOR URINE SAMPLE
[2018-12-28 20:39] VITALS: BP 132/64
[2018-12-28 21:13] VITALS: BP 162/75
--- NOTE | 2018-12-28 21:13 | NUR ---
A 53, admitted to 4E, under the services of ALFREDA Izquierdo MD with a diagnosis of HYPONATREMIA, HCAP, HYPOKALEMIA, RENAL INSUFFICENCY. Chief complaint is LLQ PAIN. Patient arrived via stretcher from ER. Monitor applied. Initial assessment completed. Vital signs taken and recorded. ALFREDA IZQUIERDO MD notified of admission to the unit. Orders received. See assessment for past medical history, medications and allergies. Patient and/or family oriented to unit. Clothing/patient valuable form completed. TIKA ROBLERO
[2018-12-28] MEDS ORDERED: ZIPRASIDONE HCL20 M1 PO (21:33)
[2018-12-28 21:53] LABS: BILIRUBIN 2+ (NEGATIVE); BLOOD NEGATIVE (NEGATIVE); CLARITY SL CLOUDY (CLEAR); COLOR YELLOW (YELLOW); GLUCOSE 2+ (NEGATIVE); KETONE 1+ (NEGATIVE); LEUKO ESTERASE NEGATIVE (NEGATIVE); NITRITE NEGATIVE (NEGATIVE); UROBILINOGEN 0.2 E.U./dl (0.2-1.0)
[2018-12-28 22:01] LABS: EPITHELIAL CELLS TNTC; MUCOUS 1+
--- NOTE | 2018-12-28 23:00 | NUR ---
1X TORADOL GIVEN FOR ABDOMINAL PAIN, LACTULOSE 1X ORDER GIVEN FOR CONSTIPATION. WILL MONITOR.
[2018-12-29] VITALS: BP 138/78
--- NOTE | 2018-12-29 01:36 | NUR ---
DR. HUNTER CALLED. NOTIFIED OF CRITICAL RELEX OF 497. ORDERS RECEIVED.
--- NOTE | 2018-12-29 02:12 | NUR ---
PATIENT MEDICATED WITH DILAUDID 0.5 MG IV PER PRN ORDER FOR C/O LEFT ABDOMEN/BACK PAIN . RATED PAIN A 8/10 WITH 10 BEING THE WORST. SEE EMAR. REINFORCED USE OF CALL LIGHT
--- NOTE | 2018-12-29 04:10 | NUR ---
DR. HUNTER NOTIFIED OF CRITICAL BLOOD REFLEX OF 528. ORDERS RECEIVED.
[2018-12-29 04:29] LABS: BASO % 0.2 % (0.0-1.0); EOS # 0.1 10*3/uL (0.0-0.4); EOS % 0.9 % (1.0-4.0); HEMATOCRIT 39.6 % (37.0-47.0); HEMOGLOBIN 13.4 g/dl (12.0-16.0); LYMPH # 0.7 10*3/uL (1.3-4.4); LYMPH % 10.6 % (27.0-41.0); MEAN CELL VOLUME 84.1 fl (81.0-99.0); MEAN CORPUSCULAR HGB 28.5 pg (27.0-31.0); MEAN CORPUSCULAR HGB CONC 33.8 g/dl (33.0-37.0); MEAN PLATELET VOLUME 11.1 fl (9.6-12.3); MONO # 0.1 10*3/uL (0.1-1.0); MONO % 1.8 % (3.0-9.0); NEUT # 5.6 10*3/uL (2.3-7.9); NEUT % 85.7 % (47.0-73.0); PLATELET COUNT AUTOMATED 299 10*3/uL (130-400); RED BLOOD COUNT 4.71 10*6/uL (4.10-5.10); RED CELL DISTRI WIDTH 13.2 % (0-14.5); WHITE BLOOD COUNT 6.5 10*3/uL (4.8-10.8)
[2018-12-29 04:43] LABS: CREATININE 2.32 mg/dL (0.55-1.02); POTASSIUM 2.8 mmol/L (3.5-5.1)
--- NOTE | 2018-12-29 05:00 | NUR ---
PATIENT MEDICATED WITH LANTUS AND INSULIN FOR ELEVATED BLOOD SUGAR. SEE EMAR. REINFORCED USE OF CALL LIGHT.
--- NOTE | 2018-12-29 06:57 | NUR ---
DR. MURRELL NOTIFIED OF CONSULT PER ORDER.
[2018-12-29 08:00] VITALS: BP 134/78
--- NOTE | 2018-12-29 09:00 | NUR ---
Food Concession Manager in to talk to patient. Patient states lives at home with family. There are few steps in the home. Physician: tammy [facility]acy: [facility] Home health services: none Patient's level of ADLs: INDEPENDENT Patient has working utilities: all working DME: [employer] Follow-up physician's appointment after d/c: discussed with patient, patient prefers to make her own follow up appointment Does patient want to access PORTAL?: no Discharge plan discussed with patient, patient lives at home with family, she is independent in adls and ambulation, patient states she will be going home when able and denies any home needs at this time BIJAL JETT
--- NOTE | 2018-12-29 09:17 | NUR ---
BLOOD SUGAR CHECKED AT THIS TIME PER ORDER. BLOOD SUGAR READING CRITICAL HIGH. STAT REFLEX ORDERED PER POLICY. WILL CONTINUE TO MONITOR. PT ASYMPTOMATIC.
--- NOTE | 2018-12-29 09:30 | NUR ---
BSG 476. INSULIN GIVEN PER S/S. WILL MONITOR EFFECTIVENESS. IVF'S MAINTAINED.
--- NOTE | 2018-12-29 10:08 | NUR ---
NOTIFIED REGARDING AM LABS. NEW ORDERS RECEIVED.
[2018-12-29 12:00] VITALS: BP 140/70
--- NOTE | 2018-12-29 14:10 | NUR ---
PT TAKEN DOWN FOR RENAL U/S.
--- NOTE | 2018-12-29 14:18 | NUR ---
LEFT MESSAGE FOR REGARDING CONSULT. AWAITING RETURN PHONE CALL.
--- NOTE | 2018-12-29 14:24 | NUR ---
NOTIFIED OF CONSULT AND WILL SEE PATIENT LATER TODAY.
[2018-12-29 16:00] VITALS: BP 123/72
--- NOTE | 2018-12-29 17:10 | NUR ---
IV started MIKE with #22 angiocath after 0 attempts. The IV site was prepped with Chloraprep. Heparin lock attached. Sterile dressing applied. Patient tolerated precedure well. Procedure performed according to [facility] policy & procedure. [facility]
[2018-12-29 20:00] VITALS: BP 106/60
--- NOTE | 2018-12-29 22:00 | NUR ---
DR OLIVER INTO SEE PT
[2018-12-30 05:03] LABS: CREATININE 2.22 mg/dL (0.55-1.02); POTASSIUM 2.9 mmol/L (3.5-5.1)
[2018-12-30 08:00] VITALS: BP 122/70
--- NOTE | 2018-12-30 09:00 | NUR ---
case management visits with patient, patient states she will be going home when able and denies any home needs
[2018-12-30 12:00] VITALS: BP 129/57
[2018-12-30 16:00] VITALS: BP 112/58
[2018-12-30 17:18] LABS: URINE CREATININE RANDOM 73.4 mg/dL
[2018-12-30 20:00] VITALS: BP 110/52
[2018-12-31] VITALS: BP 107/53; BP 87/62
--- NOTE | 2018-12-31 05:15 | NUR ---
PATIENT GIVEN TAP WATER ENEMA AT THIS TIME. TOLERATED WELL. DRAINING CLEAR.
[2018-12-31 07:04] LABS: POTASSIUM 2.8 mmol/L (3.5-5.1)
[2018-12-31 07:05] LABS: CREATININE 1.66 mg/dL (0.55-1.02)
[2018-12-31 08:00] VITALS: BP 100/48
--- NOTE | 2018-12-31 09:00 | NUR ---
case management visits with patient, patient will be going home when able and denies any home needs
[2018-12-31 12:00] VITALS: BP 102/50
--- NOTE | 2018-12-31 15:13 | NUR ---
PATIENT IS VERY UPSET THAT EGD/COLO CANNOT BE DONE UNTIL LATER THIS EVENING WHEN DR. OLIVER WILL BE HERE. DR. HUNTER NOTIFIED. PATIENT IS REFUSING EGD/COLO AT THIS TIME. NOTIFIED OF POTASSIUM LEVEL 2.8
[2018-12-31 16:00] VITALS: BP 115/42
[2018-12-31 20:00] VITALS: BP 111/45
--- NOTE | 2018-12-31 22:35 | NUR ---
ROUNDED WITH DR. OLIVER. PATIENT INFORMED THAT SHE WOULD NEED TO DO A EGD/COLONOSCOPY AND THE TIME WOULD BE ON . PATIENT REFUSED AND SAID SHE WOULD RATHER DO IT OUTPATIENT. DR WINSTON TOLD THE PATIENT TO FOLLOW UP WITH DR HUNTER. PATIENT VERBALIZED UNDERSTANDING.
[2019-01-01] VITALS: BP 132/70
--- NOTE | 2019-01-01 09:00 | NUR ---
case management visits with patient, patient denies any home needs
[2019-01-01 11:13] LABS: CREATININE 1.28 mg/dL (0.55-1.02)
[2019-01-01 11:17] LABS: POTASSIUM 4.3 mmol/L (3.5-5.1)
[2019-01-01 12:00] VITALS: BP 132/70
[2019-01-01 16:00] VITALS: BP 148/80
--- NOTE | 2019-01-01 17:10 | NUR ---
STAT REFLEX FOR GLUCOSE ORDERED DUE TO SLIDING SCALE CALLING FOR IT.
--- NOTE | 2019-01-01 17:34 | NUR ---
CALLED DR HUNTER WITH GLUCOSE RESULTS, NEW ORDERS RECEIVED.
[2019-01-01 20:00] VITALS: BP 144/66
--- NOTE | 2019-01-01 20:54 | NUR ---
NOTIFIED DR MEHTA OF PATIENTS CRITICAL HIGH BLOOD SUGAR. NOTIFIED HIM THAT PATIENT RECIEVED 10 UNITS OF LANTUS AND 15 UNITS OF HUMULIN EARLIER ABOUT 1730 FOR A CRITIAL HIGH BLOOD SUGAR WELL AND THAT SHE WAS STARTED ON STEROIDS [address] MEHTA STATED TO SWITCH THE PATIENT SLIDING SCALE TO HOSPITAL SLIDING SCALE #2
[2019-01-02] VITALS: BP 147/73
[2019-01-02 06:02] LABS: BASO % 0.2 % (0.0-1.0); EOS % 0.3 % (1.0-4.0); HEMATOCRIT 32.5 % (37.0-47.0); HEMOGLOBIN 10.5 g/dl (12.0-16.0); LYMPH # 1.7 10*3/uL (1.3-4.4); LYMPH % 15.1 % (27.0-41.0); MEAN CELL VOLUME 87.1 fl (81.0-99.0); MEAN CORPUSCULAR HGB 28.2 pg (27.0-31.0); MEAN CORPUSCULAR HGB CONC 32.3 g/dl (33.0-37.0); MEAN PLATELET VOLUME 11.2 fl (9.6-12.3); MONO # 0.6 10*3/uL (0.1-1.0); MONO % 5.4 % (3.0-9.0); NEUT # 8.7 10*3/uL (2.3-7.9); NEUT % 76.8 % (47.0-73.0); PLATELET COUNT AUTOMATED 242 10*3/uL (130-400); RED BLOOD COUNT 3.73 10*6/uL (4.10-5.10); RED CELL DISTRI WIDTH 13.8 % (0-14.5); WHITE BLOOD COUNT 11.3 10*3/uL (4.8-10.8)
--- NOTE | 2019-01-02 06:35 | NUR ---
COMPLAINTS OF BURNING AT IV SITE IN LEFT FOREARM. AFTER FLUSHED SITE BUBBLED UP.IV SITE PULLED AND 2 ATTEMPTS TO ESTABLISH ACCESS WERE MADE. THIS RN NOTIFIED DIONISIO PAULINO. DIONISIO PAULINO ESTABLISHED ACCESS IN [facility] WITH #22. NO SIGNS OR SYMPTOMS OF DISTRESS AT THIS TIME.
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
[2019-01-02 08:00] VITALS: BP 128/70
--- NOTE | 2019-01-02 09:00 | NUR ---
case management visits with patient, patient states she will be going home when able and denies any home needs
[2019-01-02 12:00] VITALS: BP 128/70; BP 142/69
[2019-01-02] MEDS ORDERED: AMLODIPINE BESYL5 MG PO (12:36)
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
--- NOTE | 2019-01-02 15:29 | NUR ---
PT DISCHARGED TO HOME BY [facility] PATIENT REQUESTED. INSTRUCTIONS GIVEN, PATIENT VERBALIZED UNDERSTANDING.
--- NOTE | 2019-01-02 15:31 | NUR ---
Discharge instructions reviewed with patient/family. Patient receptive and verbalizes understanding. Follow-up care arranged. Written instructions given to patient/family. SHANNA RUBIO
--- NOTE | 2019-01-02 15:31 | NUR ---
Discharge instructions reviewed with patient/family. Patient receptive and verbalizes understanding. Follow-up care arranged. Written instructions given to patient/family. LORENE VORA
[2019-04-02] MEDS ORDERED: LEVAQUIN750 M1 PO (12:57)
[2019-04-02] MEDS ORDERED: NOVOLOG FL100 UNIT/2 SQ (12:57)
== END 2019-01-02 15:31 | disposition home or self-care (01) | DRG 682 ==
LOC: ED 17:28 → EDHOLD 20:28 → 4E 20:28
PROVIDERS: Internal Medicine Nephrology; Physician Assistant; ADMIT Internal Medicine
DX: N17.0 Acute kidney failure with tubular necrosis (principal); J18.9 Pneumonia, unspecified organism; E87.1 Hypo-osmolality and hyponatremia; J44.1 Chronic obstructive pulmonary disease with (acute) exacerbation; K92.1 Melena; J44.0 Chronic obstructive pulmonary disease with (acute) lower respiratory infection; Z68.41 Body mass index [BMI] 40.0-44.9, adult; Z79.899 Other long term (current) drug therapy; E87.6 Hypokalemia; E11.65 Type 2 diabetes mellitus with hyperglycemia; E11.22 Type 2 diabetes mellitus with diabetic chronic kidney disease; F32.9 Major depressive disorder, single episode, unspecified; F41.1 Generalized anxiety disorder; M19.90 Unspecified osteoarthritis, unspecified site; D72.810 Lymphocytopenia; E87.8 Other disorders of electrolyte and fluid balance, not elsewhere classified; E66.9 Obesity, unspecified; K59.00 Constipation, unspecified; N18.3 Chronic kidney disease, stage 3 (moderate); I12.9 Hypertensive chronic kidney disease with stage 1 through stage 4 chronic kidney disease, or unspecified chronic kidney disease; Z88.8 Allergy status to other drugs, medicaments and biological substances; Z80.1 Family history of malignant neoplasm of trachea, bronchus and lung; Z98.891 History of uterine scar from previous surgery; Z82.3 Family history of stroke; Z82.49 Family history of ischemic heart disease and other diseases of the circulatory system; Z79.51 Long term (current) use of inhaled steroids; Z79.4 Long term (current) use of insulin; Z79.82 Long term (current) use of aspirin

== ENCOUNTER 2019-08-09 12:34 | Inpatient (IN) | payer OTHER ==
[~2019-08-09] VITALS: Ht 160 cm; Wt 106.4 kg
[~2019-08-09 12:34] MED LIST changes: +AMLODIPINE BESYL5 MG PO; -NEURONTIN400 MG PO; +NEURONTIN600 MG PO; +NICODERM CQ1 EAC1 TD; -NICODERM CQ1 EAC2 TD; +NOVOLOG FL100 UNIT/2 SQ
[2019-08-09 12:35] VITALS: BP 180/95
[2019-08-09 13:26] LABS: BASO # 0.1 10*3/uL (0.0-0.1); BASO % 0.2 % (0.0-1.0); HEMATOCRIT 46.1 % (37.0-47.0); HEMOGLOBIN 15.1 g/dl (12.0-16.0); LYMPH % 8.6 % (27.0-41.0); MEAN CELL VOLUME 78.8 fl (81.0-99.0); MEAN CORPUSCULAR HGB 25.8 pg (27.0-31.0); MEAN CORPUSCULAR HGB CONC 32.8 g/dl (33.0-37.0); MEAN PLATELET VOLUME 10.8 fl (9.6-12.3); MONO # 0.8 10*3/uL (0.1-1.0); MONO % 3.6 % (3.0-9.0); PLATELET COUNT AUTOMATED 311 10*3/uL (130-400); RED BLOOD COUNT 5.85 10*6/uL (4.10-5.10); RED CELL DISTRI WIDTH 14.1 % (0-14.5); WHITE BLOOD COUNT 22.9 10*3/uL (4.8-10.8)
[2019-08-09 13:37] LABS: ACT PARTIAL THROMBO TIME 28.8 SECONDS (20.0-32.1)
[2019-08-09 13:43] LABS: ALBUMIN 3.6 gm/dl (3.1-4.5); ALKALINE PHOSPHATASE 167 U/L (45-117); BUN 24 mg/dl (7-24); CHLORIDE 94 mmol/L (98-107); CREATININE 1.32 mg/dL (0.55-1.02); LIPASE 35 U/L (73-393); POTASSIUM 4.2 mmol/L (3.5-5.1); SGOT/AST 7 IU/L (3-35); SGPT/ALT 15 U/L (12-78); SODIUM 128 mmol/L (136-145); TOTAL PROTEIN 8.1 gm/dL (6.4-8.2); TROPONIN I < 0.015 ng/ml (<0.045)
[2019-08-09 14:00] VITALS: BP 172/73
[2019-08-09 14:26] LABS: BILIRUBIN 1+ (NEGATIVE); BLOOD 2+ (NEGATIVE); CLARITY CLEAR (CLEAR); COLOR YELLOW (YELLOW); GLUCOSE 3+ (NEGATIVE); KETONE 3+ (NEGATIVE); LEUKO ESTERASE NEGATIVE (NEGATIVE); NITRITE POSITIVE (NEGATIVE); PH 5.5 (5.0-9.0); UROBILINOGEN 0.2 E.U./dl (0.2-1.0)
[2019-08-09 14:44] LABS: BACTERIA TRACE; WBC 0-2 wbc/hpf (0-5); YEAST 1+
[2019-08-09 15:00] VITALS: BP 161/79
[2019-08-09] MEDS ORDERED: LIPITOR20 MG PO (15:58)
[2019-08-09 16:00] VITALS: BP 170/73
[2019-08-09] MEDS ORDERED: ADMELOG100 UNIT/1 SC (16:02)
[2019-08-09] MEDS ORDERED: HYDROXYZINE HCL25 MG PO (16:02)
[2019-08-09] MEDS ORDERED: SUBOXONE 8 MG-1 EACH PO (16:06)
--- NOTE | 2019-08-09 16:11 | NUR ---
A 54, admitted to [facility], under the services of ALFREDA Izquierdo MD with a diagnosis of DKA. Chief complaint is ABD PAIN. Patient arrived via stretcher from ER. Monitor applied. Initial assessment completed. Vital signs taken and recorded. ALFREDA IZQUIERDO MD notified of admission to the unit. Orders received. See assessment for past medical history, medications and allergies. Patient and/or family oriented to unit. [facility] visitation policy reviewed. Clothing/patient valuable form completed. LEONIDAS PEREIRA
[2019-08-09 16:15] VITALS: BP 153/94
--- NOTE | 2019-08-09 17:55 | NUR ---
MESSAGE LEFT ON U FOR CONSULT - DR OLIVER CALLED - ORDER FOR EGD TOMORROW AFER CLEAR LIQ BREAKFAST
--- NOTE | 2019-08-09 18:03 | NUR ---
DR MURRELL AWARE OF CONSULT
[2019-08-09 18:34] LABS: BUN 21 mg/dl (7-24); CHLORIDE 106 mmol/L (98-107); CREATININE 1.03 mg/dL (0.55-1.02); POTASSIUM 3.8 mmol/L (3.5-5.1); SODIUM 136 mmol/L (136-145)
[2019-08-09 18:36] LABS: TROPONIN I < 0.015 ng/ml (<0.045)
--- NOTE | 2019-08-09 18:44 | NUR ---
PER PT GI COCTAIL NOT EFFECTIVE - INSULIN DRIP DECREASED TO 2 UNITS/HR. GAP CLOSED AT 9. DR HUNTER CALLED
--- NOTE | 2019-08-09 19:04 | NUR ---
Late Entry - Medicated with Dilauded for abdominal pain
[2019-08-09 20:00] VITALS: BP 124/73
[2019-08-10] VITALS (10 sets, daily range): BP systolic 129–172; BP diastolic 64–94
[2019-08-10 00:40] LABS: BUN 19 mg/dl (7-24); CHLORIDE 101 mmol/L (98-107); CREATININE 1.01 mg/dL (0.55-1.02); POTASSIUM 3.4 mmol/L (3.5-5.1); SODIUM 132 mmol/L (136-145)
[2019-08-10 05:54] LABS: BUN 17 mg/dl (7-24); CHLORIDE 102 mmol/L (98-107); CHOLESTEROL 122 mg/dL (<200); CREATININE 0.98 mg/dL (0.55-1.02); HDL CHOLESTEROL 33 mg/dl (40-60); LDL CHOLESTEROL 56 mg/dL (9-159); PHOSPHOROUS 2.2 mg/dL (2.5-4.9); POTASSIUM 3.3 mmol/L (3.5-5.1); SODIUM 133 mmol/L (136-145); TRIGLYCERIDES 165 mg/dl (<150); VLDL CHOLESTEROL 33 mg/dL (6-40)
[2019-08-10 06:03] LABS: BASO # 0.1 10*3/uL (0.0-0.1); BASO % 0.4 % (0.0-1.0); EOS # 0.1 10*3/uL (0.0-0.4); EOS % 0.3 % (1.0-4.0); HEMATOCRIT 41.1 % (37.0-47.0); HEMOGLOBIN 13.7 g/dl (12.0-16.0); LYMPH # 2.9 10*3/uL (1.3-4.4); LYMPH % 16.3 % (27.0-41.0); MEAN CELL VOLUME 77.1 fl (81.0-99.0); MEAN CORPUSCULAR HGB 25.7 pg (27.0-31.0); MEAN CORPUSCULAR HGB CONC 33.3 g/dl (33.0-37.0); MEAN PLATELET VOLUME 10.7 fl (9.6-12.3); MONO # 1.4 10*3/uL (0.1-1.0); MONO % 7.9 % (3.0-9.0); NEUT # 13.4 10*3/uL (2.3-7.9); NEUT % 74.6 % (47.0-73.0); PLATELET COUNT AUTOMATED 277 10*3/uL (130-400); RED BLOOD COUNT 5.33 10*6/uL (4.10-5.10); RED CELL DISTRI WIDTH 14.2 % (0-14.5)
--- NOTE | 2019-08-10 06:08 | NUR ---
PATIENT HAS SLEPT VERY WELL THROUGH OUT THE NIGHT WITH NO ITCHING.
--- NOTE | 2019-08-10 07:59 | NUR ---
FLEXERIL GIVEN PER PT REQUEST. EXPLAINED NPO AFTER LIQUID BREAKFAST. PT VOICED UNDERSTANDING. MEDS GIVEN. PATIENT STARTED SAYING EPIGASTRIC HURTS AFTER AROUSED. EXPLAINED REFLUX & IRRITATION AFTER VOMITING
--- NOTE | 2019-08-10 08:28 | NUR ---
PHYSICAL THERAPY Screen received, pt admit from home with DKA/Sepsis. Could benefit from Physical Therapy if decline in functional status/ambulation from baseline. Please consult as appropriate, thank you. Rula Culp PT
--- NOTE | 2019-08-10 08:59 | NUR ---
PATIENT DOES NOT WANT ANYONE CALLED ABOUT SCOPE
--- NOTE | 2019-08-10 09:30 | NUR ---
SLEEPING SINCE MEDICATED
--- NOTE | 2019-08-10 10:18 | NUR ---
DR HUNTER CALLED WITH SUGARS - ORDERS RECEVIED
--- NOTE | 2019-08-10 10:29 | NUR ---
BAG WITH HOME MEDS & OTHER MISC SENT TO PHARMACY PATIENT DID NOT WANT FAMILY CALLED AND NO ONE CAME IN TO TAKE THEM
--- NOTE | 2019-08-10 10:30 | NUR ---
Machine Maintenance Mechanic in to talk to patient. Patient states lives at home with her niece in her sister's house. There are 0 steps in the home. Physician: Dr. Marek Iverson Pharmacy: [facility] Home health services: none Patient's level of ADLs: INDEPENDENT Patient has working utilities: yes DME: nebulizer Follow-up physician's appointment after d/c: she prefers to make her own follow up appt after discharge Does patient want to access PORTAL?: no Discharge plan discussed with patient. She lives with her niece in her sister's house. She is independent in her ADLs and ambulation. Discussed home health care services and she denies any home needs at this time. She plans on returning to the sister's house to live with the niece and continue to try to find another living situation for herself. When medically stable she will be discharged to home. Family will provide transportation on discharge. Dr. Mullins consult for esophagitis, for EGD in am.
--- NOTE | 2019-08-10 11:29 | NUR ---
PATIENT TO SURGERY FOR EGD
--- NOTE | 2019-08-10 13:05 | NUR ---
RETURNED FROM SURGERY S/P EGD...FINDINGS DISCUSSED.
--- NOTE | 2019-08-10 15:40 | NUR ---
TYLENOL GIVEN AND PATIENT FINALLY FELL ALSEEP.
--- NOTE | 2019-08-10 16:44 | NUR ---
Nursing screen received and chart review completed. Patient admitted with DKA/sepsis. Patient is 54 yr old. If patient should have a decline in ADLs then please refer to OT when patient is able to participate. Thank you. Nayeli Mccarthy OTR/L
--- NOTE | 2019-08-10 17:49 | NUR ---
PATIENT C/O SEVER PAIN & INABILITY TO REST - REQUESTED SOMETHING FOR PAIN. DILAUDED ORDERED X1 DOSE
--- NOTE | 2019-08-10 18:07 | NUR ---
MEDICATED WITH DILAUDED FOR PAIN WITH ANY SWALLOWING - PER PT SHE CAN'T TAKE MUCH MORE
--- NOTE | 2019-08-10 18:42 | NUR ---
RESTING BETTER 11/16 SINCE MEDCIATED
--- NOTE | 2019-08-10 21:43 | NUR ---
PATIENT BEING TRANSFERED TO [facility] REPORT GIVEN TO JACQUELINE NICHOLE AT THIS TIME.
--- NOTE | 2019-08-10 21:58 | NUR ---
PATIENT TRANSFERED TO [facility]-2 NURSE JACQUELINE NICHOLE IN THE ROOM. PATIENT REPORT WAS ALREADY GIVEN.
--- NOTE | 2019-08-10 22:00 | NUR ---
RECEIVED TRANSFER FROM ICU, INTRODUCED TO PATIENT, WHITE BOARD UPDATED, NO NEEDS VOICED AT THIS TIME, PATIENT UP IN RECLINER.
--- NOTE | 2019-08-10 22:30 | NUR ---
24 HR chart check completed.
[2019-08-11] VITALS: BP 138/64
[2019-08-11 06:39] LABS: BASO # 0.1 10*3/uL (0.0-0.1); BASO % 0.6 % (0.0-1.0); EOS # 0.2 10*3/uL (0.0-0.4); EOS % 1.3 % (1.0-4.0); HEMATOCRIT 43.3 % (37.0-47.0); HEMOGLOBIN 13.9 g/dl (12.0-16.0); LYMPH # 3.5 10*3/uL (1.3-4.4); LYMPH % 28.2 % (27.0-41.0); MEAN CELL VOLUME 79.2 fl (81.0-99.0); MEAN CORPUSCULAR HGB 25.4 pg (27.0-31.0); MEAN CORPUSCULAR HGB CONC 32.1 g/dl (33.0-37.0); MEAN PLATELET VOLUME 10.9 fl (9.6-12.3); MONO # 0.9 10*3/uL (0.1-1.0); MONO % 7.1 % (3.0-9.0); NEUT # 7.7 10*3/uL (2.3-7.9); NEUT % 62.2 % (47.0-73.0); PLATELET COUNT AUTOMATED 275 10*3/uL (130-400); RED BLOOD COUNT 5.47 10*6/uL (4.10-5.10); RED CELL DISTRI WIDTH 14.4 % (0-14.5); WHITE BLOOD COUNT 12.3 10*3/uL (4.8-10.8)
[2019-08-11 06:53] LABS: ALKALINE PHOSPHATASE 126 U/L (45-117); BUN 12 mg/dl (7-24); CHLORIDE 109 mmol/L (98-107); CREATININE 1.07 mg/dL (0.55-1.02); POTASSIUM 3.7 mmol/L (3.5-5.1); SGOT/AST 9 IU/L (3-35); SGPT/ALT 11 U/L (12-78); SODIUM 139 mmol/L (136-145); TOTAL PROTEIN 7.1 gm/dL (6.4-8.2)
--- NOTE | 2019-08-11 08:30 | NUR ---
PT C/O EPIGASTRIC AREA ABDOMINAL PAIN, TENDER TO TOUCH. RESTING IN BED. RESP-EASY AND REGULAR. IVF INFUSING WITH NO PROBLEM. CALLED DR. MONTGOMERY MADE AWARE ONE TIME DILAUDID ORDERED. CALL LIGHT IN REACH. SEE SHIFT ASSESSMENT.
--- NOTE | 2019-08-11 09:00 | NUR ---
Key Entry Operator in to see patient. No new needs or request at this time. She denies any home needs. When medically stable she will be discharged to home. Patient had an EGD done yesterday with diffuse ulcers in the esophagus and stomach, treating with aggressive ulcer therapy of IV protonix, carafate, and gaviscon.
--- NOTE | 2019-08-11 09:50 | NUR ---
IV started right hand with #24 angiocath after 1 attempts. The IV site was prepped with Chloraprep. Heparin lock attached. IV solution NS infusing at 70 cc/hr. Sterile dressing applied. Patient tolerated precedure well. Procedure performed according to [facility] policy & procedure. SULLY MATHIAS
--- NOTE | 2019-08-11 10:10 | NUR ---
IV SITE STARTED AND DILAUDID GIVEN PER ORDER, SEE EMAR. RATES PAIN EPIGASTRIC AREA ON 8 ON PAIN SCALE 0-10. CALL LIGHT IN REACH.
--- NOTE | 2019-08-11 11:00 | NUR ---
RESTING IN BED WITH EYES CLOSED. MEDICATION SEEMS TO BE EFFECTIVE. CALL LIGHT IN REACH.
[2019-08-11 12:00] VITALS: BP 138/70
--- NOTE | 2019-08-11 12:00 | NUR ---
PT AMBULATORY TO BATHROOM AND BACK TO BED. BSG-224, SEE EMAR. NO C/O AT THIS TIME. CALL LIGHT IN REACH.
[2019-08-11 16:00] VITALS: BP 126/71
[2019-08-11 20:00] VITALS: BP 107/55
--- NOTE | 2019-08-11 20:00 | NUR ---
PT RESTING IN BED. IVF INFUSING WITH NO PROBLEM. NO C/O AT THIS TIME. CALL LIGHT IN REACH. SEE SHIFT ASSESSMENT.
--- NOTE | 2019-08-11 21:22 | NUR ---
PT TOELRATED ROUTINE MED WITH NO PROBLEM .REQUESTING DOXEPIN TO SLEEP AND FLEXERIL. CALL LIGHT IN REACH. BSG-209, SEE EMAR. CALL LIGHT IN REACH.
--- NOTE | 2019-08-11 23:36 | NUR ---
MEDICATED WITH FLEXERIL FOR MUSCLE SPASMS.
[2019-08-12] VITALS: BP 120/58
--- NOTE | 2019-08-12 04:53 | NUR ---
PATIENT UP AMBULATING TO BATHROOM PER SELF. DENIES COMPLAINTS OF PAIN OR DISCOMFORT AT THIS TIME. IV FLUIDS INFUSING WITHOUT DIFFICULTY. WILL CONTINUE TO MONITOR.
[2019-08-12 07:38] LABS: BASO # 0.1 10*3/uL (0.0-0.1); BASO % 0.6 % (0.0-1.0); EOS # 0.2 10*3/uL (0.0-0.4); EOS % 2.1 % (1.0-4.0); HEMATOCRIT 35.9 % (37.0-47.0); HEMOGLOBIN 11.6 g/dl (12.0-16.0); LYMPH # 2.8 10*3/uL (1.3-4.4); LYMPH % 27.9 % (27.0-41.0); MEAN CORPUSCULAR HGB 25.8 pg (27.0-31.0); MEAN CORPUSCULAR HGB CONC 32.3 g/dl (33.0-37.0); MEAN PLATELET VOLUME 10.8 fl (9.6-12.3); MONO # 0.7 10*3/uL (0.1-1.0); MONO % 7.1 % (3.0-9.0); NEUT # 6.1 10*3/uL (2.3-7.9); NEUT % 61.9 % (47.0-73.0); PLATELET COUNT AUTOMATED 243 10*3/uL (130-400); RED BLOOD COUNT 4.49 10*6/uL (4.10-5.10); RED CELL DISTRI WIDTH 14.4 % (0-14.5); WHITE BLOOD COUNT 9.9 10*3/uL (4.8-10.8)
[2019-08-12 07:53] LABS: ALBUMIN 2.5 gm/dl (3.1-4.5); ALKALINE PHOSPHATASE 106 U/L (45-117); BUN 7 mg/dl (7-24); CHLORIDE 108 mmol/L (98-107); CREATININE 0.93 mg/dL (0.55-1.02); POTASSIUM 3.4 mmol/L (3.5-5.1); SGOT/AST 6 IU/L (3-35); SGPT/ALT 8 U/L (12-78); SODIUM 139 mmol/L (136-145); TOTAL PROTEIN 5.9 gm/dL (6.4-8.2)
[2019-08-12 07:57] VITALS: BP 160/90
--- NOTE | 2019-08-12 09:00 | NUR ---
Staff Pharmacist in to see patient. No new needs or request at this time. She denies any home needs. When medically stable she will be discharged to home. Patient had an EGD done 2 days ago with diffuse ulcers in the esophagus and stomach, treating with aggressive ulcer therapy of IV protonix, carafate, and gaviscon, and reglan.
--- NOTE | 2019-08-12 09:04 | NUR ---
PT SITTING UP IN BED, GAVE ZOFRAN FOR NAUSEA, APPLIED LUZ MARIA HOSE. DALIA VALDEZ SPNRCC
--- NOTE | 2019-08-12 10:00 | NUR ---
ZOFRAN ALLEVIATED THE NAUSEA DALIA KITCHEN
[2019-08-12 12:00] VITALS: BP 158/86
--- NOTE | 2019-08-12 12:57 | NUR ---
PT COMPLAINED OF PAIN FLEXERIL WAS GIVEN WILL CONTINUE TO MONITOR DALIA VALDEZ SPNRCC
--- NOTE | 2019-08-12 13:40 | NUR ---
PT STATES THAT SHE IS FEELING SOMEWHAT BETTER, PAIN IS ALWAYS WORSE AFTER EATING, DR. OLIVER IN TO SEE PT DALIA VALDEZ SPGEMACC
[2019-08-12 16:00] VITALS: BP 142/75
[2019-08-12 20:00] VITALS: BP 168/82
[2019-08-12 20:52] VITALS: BP 164/88
--- NOTE | 2019-08-12 21:26 | NUR ---
DE IS REQUESTING DOXEPIN TO HELP HER FALL ASLEEP. PT IS GIVEN DOXEPIN PO AT THIS TIME. WILL CONTINUE TO MONITOR THE PATIENT. CALL LIGHT WITHIN REACH
--- NOTE | 2019-08-12 22:30 | NUR ---
PT RE-EVALUATED AT THIS TIME AND SHE IS SLEEPING. WILL CONTINUE TO MONITOR THE PATIENT
[2019-08-13] VITALS: BP 156/93
--- NOTE | 2019-08-13 02:43 | NUR ---
24 HR chart check completed.
--- NOTE | 2019-08-13 04:02 | NUR ---
Patient sleeping. Respirations relaxed and easy. Wheels locked, call light within reach. COLT DONOVAN
--- NOTE | 2019-08-13 04:25 | NUR ---
PT STATES SHE HAS A HEADACHE AND NOTES THAT IT IS A 7/10 AND IS REQUESTING ACETAMINOPHEN. ACETAMINOPHEN PO IS GIVEN AT THIS TIME.
[2019-08-13 06:46] LABS: BASO # 0.1 10*3/uL (0.0-0.1); BASO % 0.6 % (0.0-1.0); EOS # 0.2 10*3/uL (0.0-0.4); EOS % 2.5 % (1.0-4.0); HEMATOCRIT 39.5 % (37.0-47.0); HEMOGLOBIN 12.8 g/dl (12.0-16.0); LYMPH # 2.4 10*3/uL (1.3-4.4); LYMPH % 25.4 % (27.0-41.0); MEAN CELL VOLUME 78.5 fl (81.0-99.0); MEAN CORPUSCULAR HGB 25.4 pg (27.0-31.0); MEAN CORPUSCULAR HGB CONC 32.4 g/dl (33.0-37.0); MEAN PLATELET VOLUME 10.5 fl (9.6-12.3); MONO # 0.8 10*3/uL (0.1-1.0); MONO % 8.1 % (3.0-9.0); NEUT % 62.9 % (47.0-73.0); PLATELET COUNT AUTOMATED 275 10*3/uL (130-400); RED BLOOD COUNT 5.03 10*6/uL (4.10-5.10); RED CELL DISTRI WIDTH 14.4 % (0-14.5); WHITE BLOOD COUNT 9.6 10*3/uL (4.8-10.8)
[2019-08-13 06:54] LABS: BUN 5 mg/dl (7-24); CHLORIDE 105 mmol/L (98-107); CREATININE 0.88 mg/dL (0.55-1.02); POTASSIUM 3.7 mmol/L (3.5-5.1); SODIUM 138 mmol/L (136-145)
[2019-08-13 08:00] VITALS: BP 151/63
--- NOTE | 2019-08-13 08:26 | NUR ---
Discussed campus monitor continuation with Dr. Iverson. New order received to discontinue.
--- NOTE | 2019-08-13 10:30 | NUR ---
Buffet Manager in to see patient. No new needs or request at this time. She denies any home needs. When medically stable she will be discharged to home. Patient had an EGD done 3 days ago with diffuse ulcers in the esophagus and stomach, treating with aggressive ulcer therapy of IV protonix, carafate, and gaviscon, and reglan. Dr. Mullins reevaluated and is continuing the aggressive treatment. She states she is not eating well. Receiving pain and nausea medication.
[2019-08-13 12:00] VITALS: BP 150/61
[2019-08-13 16:00] VITALS: BP 142/79
--- NOTE | 2019-08-13 19:57 | NUR ---
PT STATES THAT SHE AHS NOT HAD A BOWEL MOVEMENT SINCE THANKS AND IS REQUESTING SOMETHING FOR CONTIPATION. PRN MOM LIQUID IS GIVEN AT THIS TIME. WILL CONTINUE TO MONITOR THE PATIENT.
[2019-08-13 20:00] VITALS: BP 124/97
--- NOTE | 2019-08-13 21:00 | NUR ---
PT STATES THAT HER STOMACH FEELS UPSET AND THAT SHE THINKS THE MOM IS WORKING THAT SHE MAY HAVE A BOWEL MOVEMENT BY THE END OF THE NIGHT. WILL CONTINUE TO MONITOR THE PATIENT.
[2019-08-14] VITALS: BP 128/80
--- NOTE | 2019-08-14 04:24 | NUR ---
Patient resting quietly with no c/o discomfort. Respirations easy and regular. Vital signs stable. No overt distress. ROYAL LOUISE
--- NOTE | 2019-08-14 04:53 | NUR ---
TYLENOL GIVEN PER PATIENT REQUEST FOR COMPLAINTS OF HEADACHE RATED 8/10. WILL ASSESS EFFECTIVENESS.
[2019-08-14 06:54] LABS: BASO # 0.1 10*3/uL (0.0-0.1); BASO % 0.7 % (0.0-1.0); EOS # 0.3 10*3/uL (0.0-0.4); HEMATOCRIT 36.5 % (37.0-47.0); HEMOGLOBIN 11.7 g/dl (12.0-16.0); LYMPH # 2.9 10*3/uL (1.3-4.4); LYMPH % 29.7 % (27.0-41.0); MEAN CELL VOLUME 79.5 fl (81.0-99.0); MEAN CORPUSCULAR HGB 25.5 pg (27.0-31.0); MEAN CORPUSCULAR HGB CONC 32.1 g/dl (33.0-37.0); MEAN PLATELET VOLUME 10.5 fl (9.6-12.3); MONO # 0.8 10*3/uL (0.1-1.0); MONO % 7.7 % (3.0-9.0); NEUT # 5.8 10*3/uL (2.3-7.9); NEUT % 58.5 % (47.0-73.0); PLATELET COUNT AUTOMATED 263 10*3/uL (130-400); RED BLOOD COUNT 4.59 10*6/uL (4.10-5.10); RED CELL DISTRI WIDTH 14.4 % (0-14.5); WHITE BLOOD COUNT 9.9 10*3/uL (4.8-10.8)
[2019-08-14 07:21] LABS: BUN 10 mg/dl (7-24); CHLORIDE 101 mmol/L (98-107); CREATININE 0.98 mg/dL (0.55-1.02); POTASSIUM 3.5 mmol/L (3.5-5.1); SODIUM 136 mmol/L (136-145)
[2019-08-14 08:00] VITALS: BP 117/53
--- NOTE | 2019-08-14 09:00 | NUR ---
Insole Bottom Filler in to see patient. No new needs or request at this time. She denies any home needs. When medically stable she will be discharged to home. Treating with aggressive ulcer therapy of IV protonix, carafate, and gaviscon, and reglan.
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
[2019-08-14 12:00] VITALS: BP 122/63
[2019-08-14] MEDS ORDERED: PROTONIX40 MG PO (14:37)
[2019-08-14] MEDS ORDERED: METOCLOPRAMIDE H5 M1 PO ×2 (14:37→15:12)
[2019-08-14] MEDS ORDERED: Carafate1 GM/10 ML PO (15:12)
--- NOTE | 2019-08-14 15:50 | NUR ---
MSDIS Discharge instructions reviewed with patient/family. Patient receptive and verbalizes understanding. Follow-up care arranged. Written instructions given to patient/family. KIMBERLYN HUITRON
== END 2019-08-14 15:50 | disposition home or self-care (01) | DRG 241 ==
LOC: ED 12:34 → EDHOLD 14:55 → ICCU 14:55 → 4E 14:55 → ICCU 15:08 → 4E 08-10 20:22
PROVIDERS: Emergency Medicine; Internal Medicine; ADMIT Internal Medicine
PROC: 0DB58ZX Excision of Esophagus, Via Natural or Artificial Opening Endoscopic, Diagnostic (ICD-10-PCS; principal; 2019-08-10)
PROC: 0DB68ZX Excision of Stomach, Via Natural or Artificial Opening Endoscopic, Diagnostic (ICD-10-PCS; 2019-08-10)
DX: K25.4 Chronic or unspecified gastric ulcer with hemorrhage (principal); E11.10 Type 2 diabetes mellitus with ketoacidosis without coma; K29.71 Gastritis, unspecified, with bleeding; R65.10 Systemic inflammatory response syndrome (SIRS) of non-infectious origin without acute organ dysfunction; K22.11 Ulcer of esophagus with bleeding; F17.210 Nicotine dependence, cigarettes, uncomplicated; E78.5 Hyperlipidemia, unspecified; J44.9 Chronic obstructive pulmonary disease, unspecified; F41.1 Generalized anxiety disorder; K75.3 Granulomatous hepatitis, not elsewhere classified; K21.9 Gastro-esophageal reflux disease without esophagitis; E87.1 Hypo-osmolality and hyponatremia; N17.0 Acute kidney failure with tubular necrosis; F41.9 Anxiety disorder, unspecified; M19.90 Unspecified osteoarthritis, unspecified site; N18.3 Chronic kidney disease, stage 3 (moderate); K59.00 Constipation, unspecified; E66.01 Morbid (severe) obesity due to excess calories; K92.0 Hematemesis; E83.51 Hypocalcemia; F33.9 Major depressive disorder, recurrent, unspecified; K44.9 Diaphragmatic hernia without obstruction or gangrene; E83.39 Other disorders of phosphorus metabolism; E86.9 Volume depletion, unspecified; N39.0 Urinary tract infection, site not specified; F11.20 Opioid dependence, uncomplicated; Z68.41 Body mass index [BMI] 40.0-44.9, adult; Z91.14 Patient's other noncompliance with medication regimen; Z71.6 Tobacco abuse counseling; Z88.8 Allergy status to other drugs, medicaments and biological substances; Z88.6 Allergy status to analgesic agent; Z98.891 History of uterine scar from previous surgery; Z98.51 Tubal ligation status; Z80.1 Family history of malignant neoplasm of trachea, bronchus and lung; Z80.51 Family history of malignant neoplasm of kidney; Z80.8 Family history of malignant neoplasm of other organs or systems; I12.9 Hypertensive chronic kidney disease with stage 1 through stage 4 chronic kidney disease, or unspecified chronic kidney disease; E11.22 Type 2 diabetes mellitus with diabetic chronic kidney disease

== ENCOUNTER 2019-10-30 12:33 | Inpatient (IN) | payer OTHER ==
[~2019-10-30] VITALS: Ht 160 cm; Wt 105.9 kg
[~2019-10-30 12:33] MED LIST changes: +ADMELOG100 UNIT/1 SC; +Carafate1 GM/10 ML PO; +HYDROXYZINE HCL25 MG PO; +LIPITOR20 MG PO; +METOCLOPRAMIDE H5 M1 PO; +PROTONIX40 MG PO; +SUBOXONE 8 MG-1 EACH PO
[2019-10-30 12:41] VITALS: BP 135/77
[2019-10-30 13:09] LABS: BASO % 0.3 % (0.0-1.0); EOS # 0.1 10*3/uL (0.0-0.4); EOS % 0.5 % (1.0-4.0); HEMATOCRIT 37.2 % (37.0-47.0); HEMOGLOBIN 11.9 g/dl (12.0-16.0); LYMPH % 29.4 % (27.0-41.0); MEAN CELL VOLUME 83.2 fl (81.0-99.0); MEAN CORPUSCULAR HGB 26.6 pg (27.0-31.0); MEAN PLATELET VOLUME 9.7 fl (9.6-12.3); MONO # 0.8 10*3/uL (0.1-1.0); MONO % 5.9 % (3.0-9.0); NEUT # 8.6 10*3/uL (2.3-7.9); NEUT % 63.5 % (47.0-73.0); PLATELET COUNT AUTOMATED 360 10*3/uL (130-400); RED BLOOD COUNT 4.47 10*6/uL (4.10-5.10); RED CELL DISTRI WIDTH 14.2 % (0-14.5); WHITE BLOOD COUNT 13.5 10*3/uL (4.8-10.8)
[2019-10-30 13:12] VITALS: BP 135/76
[2019-10-30 13:20] LABS: ACT PARTIAL THROMBO TIME 24.4 SECONDS (20.0-32.1); INTERNATIONAL NORM RATIO 0.9 (2.0-3.5)
[2019-10-30 13:24] LABS: ALBUMIN 3.3 gm/dl (3.1-4.5); ALKALINE PHOSPHATASE 143 U/L (45-117); BUN 19 mg/dl (7-24); CHLORIDE 105 mmol/L (98-107); CREATININE 1.27 mg/dL (0.55-1.02); POTASSIUM 3.5 mmol/L (3.5-5.1); SGOT/AST 5 IU/L (3-35); SGPT/ALT 14 U/L (12-78); SODIUM 139 mmol/L (136-145); TOTAL PROTEIN 7.8 gm/dL (6.4-8.2)
[2019-10-30 13:26] LABS: TROPONIN I < 0.015 ng/ml (<0.045)
[2019-10-30 14:15] VITALS: BP 142/77
[2019-10-30 16:00] VITALS: BP 130/54
[2019-10-30 20:00] VITALS: BP 134/68
[2019-10-31] VITALS: BP 146/72
[2019-10-31 08:00] VITALS: BP 123/64
[2019-10-31 12:00] VITALS: BP 118/57
[2019-10-31 16:00] VITALS: BP 144/76
[2019-10-31 20:00] VITALS: BP 130/71
[2019-11-01] VITALS: BP 134/63
[2019-11-01 07:43] VITALS: BP 160/76
[2019-11-01 12:00] VITALS: BP 147/75
[2019-11-01 16:00] VITALS: BP 149/77
[2019-11-01 20:00] VITALS: BP 152/77
[2019-11-02] VITALS: BP 146/74
[2019-11-02 06:44] LABS: HEMATOCRIT 32.4 % (37.0-47.0); HEMOGLOBIN 10.3 g/dl (12.0-16.0); MEAN CELL VOLUME 84.2 fl (81.0-99.0); MEAN CORPUSCULAR HGB 26.8 pg (27.0-31.0); MEAN CORPUSCULAR HGB CONC 31.8 g/dl (33.0-37.0); MEAN PLATELET VOLUME 9.7 fl (9.6-12.3); PLATELET COUNT AUTOMATED 308 10*3/uL (130-400); RED BLOOD COUNT 3.85 10*6/uL (4.10-5.10); RED CELL DISTRI WIDTH 14.7 % (0-14.5)
[2019-11-02 06:58] LABS: CREATININE 1.19 mg/dL (0.55-1.02); POTASSIUM 4.5 mmol/L (3.5-5.1)
[2019-11-02 07:13] LABS: TOTAL CELLS COUNTED 100 #CELLS
[2019-11-02 07:14] LABS: OVALOCYTES FEW; PLATELET SUFFICIENCY NORMAL (NORMAL)
[2019-11-02 07:20] VITALS: BP 144/82
[2019-11-02 12:00] VITALS: BP 151/86
[2019-11-02 16:00] VITALS: BP 141/69
[2019-11-02 20:00] VITALS: BP 123/75
[2019-11-03] VITALS: BP 125/55
[2019-11-03 07:04] LABS: HEMATOCRIT 35.1 % (37.0-47.0); HEMOGLOBIN 11.1 g/dl (12.0-16.0); MEAN CORPUSCULAR HGB 26.9 pg (27.0-31.0); MEAN CORPUSCULAR HGB CONC 31.6 g/dl (33.0-37.0); MEAN PLATELET VOLUME 10.5 fl (9.6-12.3); PLATELET COUNT AUTOMATED 330 10*3/uL (130-400); RED BLOOD COUNT 4.13 10*6/uL (4.10-5.10); WHITE BLOOD COUNT 21.1 10*3/uL (4.8-10.8)
[2019-11-03 07:15] LABS: BUN 22 mg/dl (7-24); CHLORIDE 103 mmol/L (98-107); CREATININE 1.08 mg/dL (0.55-1.02); POTASSIUM 4.3 mmol/L (3.5-5.1); SODIUM 135 mmol/L (136-145)
[2019-11-03 07:51] LABS: TOTAL CELLS COUNTED 100 #CELLS
[2019-11-03 07:52] LABS: BURR CELLS FEW; PLATELET SUFFICIENCY NORMAL (NORMAL)
[2019-11-03 08:00] VITALS: BP 122/50
[2019-11-03 12:00] VITALS: BP 125/68
[2019-11-03 16:00] VITALS: BP 138/77
[2019-11-03 20:00] VITALS: BP 122/62
[2019-11-04] VITALS: BP 149/86
[2019-11-04 07:30] VITALS: BP 142/82
[2019-11-04 12:00] VITALS: BP 145/66
[2019-11-04 16:00] VITALS: BP 142/67
[2019-11-04 20:00] VITALS: BP 123/72
[2019-11-05] VITALS: BP 132/67
[2019-11-05 06:03] LABS: BUN 20 mg/dl (7-24); CHLORIDE 102 mmol/L (98-107); CREATININE 1.09 mg/dL (0.55-1.02); POTASSIUM 5.1 mmol/L (3.5-5.1); SODIUM 137 mmol/L (136-145)
[2019-11-05 06:15] LABS: HEMATOCRIT 32.4 % (37.0-47.0); HEMOGLOBIN 10.3 g/dl (12.0-16.0); MEAN CORPUSCULAR HGB CONC 31.8 g/dl (33.0-37.0); MEAN PLATELET VOLUME 10.7 fl (9.6-12.3); PLATELET COUNT AUTOMATED 314 10*3/uL (130-400); RED BLOOD COUNT 3.81 10*6/uL (4.10-5.10); RED CELL DISTRI WIDTH 15.2 % (0-14.5); WHITE BLOOD COUNT 21.7 10*3/uL (4.8-10.8)
[2019-11-05 07:11] LABS: PLATELET SUFFICIENCY NORMAL (NORMAL); TOTAL CELLS COUNTED 100 #CELLS; TOXIC GRANULATION SLIGHT
[2019-11-05 07:20] LABS: OVALOCYTES FEW; SCHISTOCYTES FEW
[2019-11-05 08:00] VITALS: BP 134/56
[2019-11-05 12:00] VITALS: BP 133/55
[2019-11-05 16:00] VITALS: BP 148/77
[2019-11-05 20:36] VITALS: BP 140/59
[2019-11-06] VITALS: BP 127/60
[2019-11-06 08:00] VITALS: BP 122/64
[2019-11-06] MEDS ORDERED: MEDROL DOSEPAK4 MG PO (09:36)
[2019-11-06] MEDS ORDERED: DOXYCYCLINE MO100 M1 PO (09:36)
[2019-11-06] MEDS ORDERED: LASIX40 MG PO (11:36)
== END 2019-11-06 12:25 | disposition home or self-care (01) | DRG 145 ==
LOC: ED 12:33 → 4E 13:26
PROVIDERS: Emergency Medicine; Internal Medicine Nephrology; ADMIT Internal Medicine
DX: J20.9 Acute bronchitis, unspecified (principal); N17.0 Acute kidney failure with tubular necrosis; J96.90 Respiratory failure, unspecified, unspecified whether with hypoxia or hypercapnia; J44.0 Chronic obstructive pulmonary disease with (acute) lower respiratory infection; E83.51 Hypocalcemia; J44.1 Chronic obstructive pulmonary disease with (acute) exacerbation; E11.22 Type 2 diabetes mellitus with diabetic chronic kidney disease; N18.3 Chronic kidney disease, stage 3 (moderate); E66.01 Morbid (severe) obesity due to excess calories; R33.9 Retention of urine, unspecified; G47.00 Insomnia, unspecified; F32.9 Major depressive disorder, single episode, unspecified; R00.0 Tachycardia, unspecified; M19.90 Unspecified osteoarthritis, unspecified site; I12.9 Hypertensive chronic kidney disease with stage 1 through stage 4 chronic kidney disease, or unspecified chronic kidney disease; E78.5 Hyperlipidemia, unspecified; I70.0 Atherosclerosis of aorta; E11.65 Type 2 diabetes mellitus with hyperglycemia; F41.1 Generalized anxiety disorder; D72.829 Elevated white blood cell count, unspecified; K21.9 Gastro-esophageal reflux disease without esophagitis; T38.0X5A Adverse effect of glucocorticoids and synthetic analogues, initial encounter; Y92.89 Other specified places as the place of occurrence of the external cause; Z87.01 Personal history of pneumonia (recurrent); Z87.440 Personal history of urinary (tract) infections; Z88.8 Allergy status to other drugs, medicaments and biological substances; Z68.41 Body mass index [BMI] 40.0-44.9, adult; Z88.5 Allergy status to narcotic agent; Z98.891 History of uterine scar from previous surgery; Z80.1 Family history of malignant neoplasm of trachea, bronchus and lung; Z82.3 Family history of stroke; Z82.49 Family history of ischemic heart disease and other diseases of the circulatory system; Z84.1 Family history of disorders of kidney and ureter; Z98.51 Tubal ligation status; Z84.89 Family history of other specified conditions; Z71.6 Tobacco abuse counseling

== ENCOUNTER 2019-11-09 15:27 | Inpatient (IN) | payer OTHER ==
[~2019-11-09] VITALS: Ht 160 cm; Wt 111.7 kg
[~2019-11-09 15:27] MED LIST changes: +DOXYCYCLINE MO100 M1 PO; +LASIX40 MG PO
[2019-11-09 15:59] LABS: HEMATOCRIT 30.7 % (37.0-47.0); HEMOGLOBIN 9.8 g/dl (12.0-16.0); MEAN CELL VOLUME 85.3 fl (81.0-99.0); MEAN CORPUSCULAR HGB 27.2 pg (27.0-31.0); MEAN CORPUSCULAR HGB CONC 31.9 g/dl (33.0-37.0); MEAN PLATELET VOLUME 9.6 fl (9.6-12.3); PLATELET COUNT AUTOMATED 248 10*3/uL (130-400); RED CELL DISTRI WIDTH 15.4 % (0-14.5); WHITE BLOOD COUNT 8.4 10*3/uL (4.8-10.8)
[2019-11-09 16:11] LABS: ACT PARTIAL THROMBO TIME 32.8 SECONDS (20.0-32.1); INTERNATIONAL NORM RATIO 0.9 (2.0-3.5)
[2019-11-09 16:18] LABS: PLATELET SUFFICIENCY NORMAL (NORMAL); TOTAL CELLS COUNTED 100 #CELLS
[2019-11-09 16:19] LABS: ALBUMIN 2.4 gm/dl (3.1-4.5); ALKALINE PHOSPHATASE 103 U/L (45-117); BUN 20 mg/dl (7-24); CHLORIDE 97 mmol/L (98-107); CREATININE 1.14 mg/dL (0.55-1.02); POTASSIUM 4.2 mmol/L (3.5-5.1); SGOT/AST 14 IU/L (3-35); SGPT/ALT 28 U/L (12-78); SODIUM 134 mmol/L (136-145); TOTAL PROTEIN 6.5 gm/dL (6.4-8.2)
[2019-11-09 16:25] LABS: TROPONIN I < 0.015 ng/ml (<0.045)
[2019-11-09 17:40] VITALS: BP 127/62
--- NOTE | 2019-11-09 17:40 | NUR ---
A 54, admitted to , under the services of ALFREDA Izquierdo MD with a diagnosis of DYSPNEA. Chief complaint is SYSPNEA X 2 DAYS. Patient arrived via ambulatory from ER. Monitor applied. Initial assessment completed. Vital signs taken and recorded. ALFREDA IZQUIERDO MD notified of admission to the unit. Orders received. See assessment for past medical history, medications and allergies. Patient and/or family oriented to unit. [facility] visitation policy reviewed. Clothing/patient valuable form completed. JACQUELINE ROSA
[2019-11-09 20:00] VITALS: BP 131/63
--- NOTE | 2019-11-09 22:39 | NUR ---
PATIENT MEDICATED WITH DOXEPIN AND FLEXERIL PER HER REQUEST. WILL CONTINUE TO MONITOR. CALL LIGHT IN REACH.
[2019-11-10] VITALS: BP 144/74
--- NOTE | 2019-11-10 09:00 | NUR ---
Seam Finisher in to talk to patient. Patient states lives at home with her niece in her sister's house. There are 0 steps in the home. Physician: Dr. Marek Iverson Pharmacy: [facility] Home health services: none Patient's level of ADLs: INDEPENDENT Patient has working utilities: yes DME: nebulizer Follow-up physician's appointment after d/c: she prefers to make her own follow up appt after discharge Does patient want to access PORTAL?: no Discharge plan discussed with patient. She lives with her niece in her sister's house. She is independent in her ADLs and ambulation. Asked patient if she bought a cane from her last admission here and she stated no but still plans on buying one. Discussed home health care services and she denies any home needs at this time. She plans on returning to the sister's house to live with the niece and continue to try to find another living situation for herself. When medically stable she will be discharged to home. Family will provide transportation on discharge. SAUL QUEZADA
[2019-11-10 12:00] VITALS: BP 123/63
--- NOTE | 2019-11-10 12:20 | NUR ---
DR. MERINO NOTIFIED OF CONSULT.
--- NOTE | 2019-11-10 15:38 | NUR ---
TYLENOL GIVEN FOR C/O RIB PAIN (WITH COUGH), TESSALON PERLE GIVEN FOR C/O COUGH. WILL MONITOR.
[2019-11-10 16:00] VITALS: BP 130/71
--- NOTE | 2019-11-10 19:45 | NUR ---
PATIENT RESTING IN BED WATCHING TV. DENIES COMPLAINTS OF PAIN OR DISCOMFORT AT THIS TIME. WHEEZES NOTED T/O LUNGFIELDS. O2 ON AT 2L N/C. RESPIRATIONS REGULAR AND NON-LABORED. WILL CONTINUE TO MONITOR. CALL LIGHT IN REACH.
[2019-11-10 20:00] VITALS: BP 108/53
--- NOTE | 2019-11-10 22:23 | NUR ---
PATIENT MEDICATED WITH FLEXERIL AND DOXEPIN FOR INSOMNIA AND PATIENT REQUEST. WILL CONTINUE TO MONITOR. CALL LIGHT IN REACH.
[2019-11-11] VITALS: BP 125/66
[2019-11-11 06:13] LABS: BASO % 0.1 % (0.0-1.0); HEMATOCRIT 33.7 % (37.0-47.0); HEMOGLOBIN 10.5 g/dl (12.0-16.0); LYMPH # 0.7 10*3/uL (1.3-4.4); LYMPH % 9.5 % (27.0-41.0); MEAN CELL VOLUME 87.5 fl (81.0-99.0); MEAN CORPUSCULAR HGB 27.3 pg (27.0-31.0); MEAN CORPUSCULAR HGB CONC 31.2 g/dl (33.0-37.0); MEAN PLATELET VOLUME 10.1 fl (9.6-12.3); MONO # 0.4 10*3/uL (0.1-1.0); MONO % 4.7 % (3.0-9.0); NEUT # 6.1 10*3/uL (2.3-7.9); NEUT % 82.7 % (47.0-73.0); PLATELET COUNT AUTOMATED 287 10*3/uL (130-400); RED BLOOD COUNT 3.85 10*6/uL (4.10-5.10); RED CELL DISTRI WIDTH 15.1 % (0-14.5); WHITE BLOOD COUNT 7.4 10*3/uL (4.8-10.8)
[2019-11-11 06:29] LABS: ALBUMIN 2.6 gm/dl (3.1-4.5); BUN 22 mg/dl (7-24); CHLORIDE 97 mmol/L (98-107); CREATININE 1.12 mg/dL (0.55-1.02); POTASSIUM 4.4 mmol/L (3.5-5.1); SGOT/AST 7 IU/L (3-35); SGPT/ALT 25 U/L (12-78); SODIUM 133 mmol/L (136-145); TOTAL PROTEIN 6.7 gm/dL (6.4-8.2)
[2019-11-11 06:33] LABS: ALKALINE PHOSPHATASE 106 U/L (45-117)
[2019-11-11 08:00] VITALS: BP 139/71
--- NOTE | 2019-11-11 09:00 | NUR ---
Residential Insurance Inspector in to see patient. No new needs or request at this time. She denies any home needs. When medically stable she will be discharged to home.
--- NOTE | 2019-11-11 11:23 | NUR ---
Nutritional Support Services Note: Diet copy for 1800cal diet left with pt. She declined a need for diet instruction. Ht.5'3 Wt.246# She has an 12# weight increase since 11/02/19 admission. Encouraged compliance to diet for weight loss and better BS control. HGBA1c 08/27 was 13.9. Pt is upset that she cannot eat sausage and have extra margarine with breakfast. Discussed that we are complying with the calorie level. Stressed importance of healthy eating habits. Encouraged follow up if needed. Taylor Woo Rdn Ld
[2019-11-11 12:00] VITALS: BP 110/43
[2019-11-11 16:00] VITALS: BP 134/58
--- NOTE | 2019-11-11 17:15 | NUR ---
Patient assessed for home o2. At rest on 1 l/m Spo2 98% HR 88, BP 146/68. on room air at rest Spo2 97% HR 88. during ambulation spo2 decreased to 90% hr increased to 135. patient appeared short of breath and had audible wheezing with ambulation. Post ambulation on room air at rest Spo2 99%, HR 105 BP 158/77.
[2019-11-11 20:00] VITALS: BP 149/61
--- NOTE | 2019-11-11 22:05 | NUR ---
FELXERIL FOR MUSCLE SPASMS AND DOXEPIN FOR INSOMIA GIVEN PER PATIENT RQUEST. WILL ASSESS EFFECTIVENESS.
--- NOTE | 2019-11-11 23:10 | NUR ---
PRN MEDICATIONS EFFECTIVE PER PATIENT. PATIENT RESTING QUIETLY IN BED. NO COMPLAINTS AT THIS TIME. RESPIRATIONS EASY, REGULAR, NO DISTRESS NOTED. CALL LIGHT WITHIN REACH. WILL CONTINUE TO MONITOR.
[2019-11-12] VITALS (9 sets, daily range): BP systolic 117–148; BP diastolic 57–81
--- NOTE | 2019-11-12 00:51 | NUR ---
24 HR chart check completed.
--- NOTE | 2019-11-12 06:00 | NUR ---
PATIENT'S BLOOD SUGAR 423. PATIENT IS DOWN FOR A BRONCH TODAY AND IS NPO. I ADMINISTERED THE 7 UNITS OF SCHEDULED INSULIN. SLIDING SCALE WAS NOT ADMINISTERED DUE TO PATIENT BEING NPO. WILL NOTIFY NEXT NURSE THAT PATIENT'S BLOOD SUGAR MAY NEED TO BE RECHECKED. PATIENT STATED SHE DID NOT WANT ALL OF THE INSULIN GIVEN THAT THE SLIDING SCALE WAS CALLING FOR SINCE SHE IS NPO. SHE WAS OKAY WITH RECIEVING THE 7 UNITS. WILL MONITOR THE PATIENT.
[2019-11-12 06:31] LABS: BASO % 0.1 % (0.0-1.0); HEMOGLOBIN 9.9 g/dl (12.0-16.0); LYMPH # 1.2 10*3/uL (1.3-4.4); LYMPH % 11.5 % (27.0-41.0); MEAN CELL VOLUME 86.1 fl (81.0-99.0); MEAN CORPUSCULAR HGB 27.5 pg (27.0-31.0); MEAN CORPUSCULAR HGB CONC 31.9 g/dl (33.0-37.0); MEAN PLATELET VOLUME 9.4 fl (9.6-12.3); MONO # 0.5 10*3/uL (0.1-1.0); MONO % 4.5 % (3.0-9.0); NEUT # 8.1 10*3/uL (2.3-7.9); NEUT % 80.9 % (47.0-73.0); PLATELET COUNT AUTOMATED 280 10*3/uL (130-400); RED CELL DISTRI WIDTH 15.2 % (0-14.5)
[2019-11-12 06:58] LABS: CREATININE 1.25 mg/dL (0.55-1.02); POTASSIUM 4.7 mmol/L (3.5-5.1)
--- NOTE | 2019-11-12 08:30 | NUR ---
Crimping Machine Operator For Metal in to see patient. No new needs or request at this time. She denies any home needs. When medically stable she will be discharged to home.
--- NOTE | 2019-11-12 09:30 | NUR ---
Returned to room from OR Bronch via bed. Vitals and assessment completed. No c/o pain or discomfort. Cele ANAYA
--- NOTE | 2019-11-12 19:46 | NUR ---
PATIENT RESTING IN BED WITH NO NEEDS MADE. C/O SHORTNESS OF BREATH AT REST. O2 NC INTACT. BED IN LOWEST POSITION, CALL LIGHT IN REACH
--- NOTE | 2019-11-12 21:23 | NUR ---
MEDICATED WITH PRN FLEXERIL AND DOXEPIN PER REQUEST. WILL MONITOR
[2019-11-13] VITALS: BP 163/86
--- NOTE | 2019-11-13 00:01 | NUR ---
MEDICATED WITH PRN TESSALON PERLES FOR C/O COUGHING. WILL MONITOR
--- NOTE | 2019-11-13 01:26 | NUR ---
24 HR chart check completed.
[2019-11-13 07:08] LABS: HEMOGLOBIN 10.6 g/dl (12.0-16.0); MEAN CELL VOLUME 87.9 fl (81.0-99.0); MEAN CORPUSCULAR HGB 27.4 pg (27.0-31.0); MEAN CORPUSCULAR HGB CONC 31.2 g/dl (33.0-37.0); MEAN PLATELET VOLUME 10.5 fl (9.6-12.3); PLATELET COUNT AUTOMATED 280 10*3/uL (130-400); RED BLOOD COUNT 3.87 10*6/uL (4.10-5.10); RED CELL DISTRI WIDTH 15.3 % (0-14.5); WHITE BLOOD COUNT 11.3 10*3/uL (4.8-10.8)
[2019-11-13 07:16] LABS: CREATININE 1.15 mg/dL (0.55-1.02); POTASSIUM 4.3 mmol/L (3.5-5.1)
[2019-11-13 07:44] LABS: TOTAL CELLS COUNTED 100 #CELLS
[2019-11-13 07:45] LABS: BURR CELLS FEW; OVALOCYTES FEW; PLATELET SUFFICIENCY NORMAL (NORMAL); POLYCHROMASIA SLIGHT; SCHISTOCYTES FEW
[2019-11-13 08:00] VITALS: BP 174/90
[2019-11-13 12:00] VITALS: BP 178/80
[2019-11-13 14:00] VITALS: BP 178/80
--- NOTE | 2019-11-13 14:00 | NUR ---
DR. JIANG MADE AWARE OF PATIENT'S BLOOD PRESSURE.
[2019-11-13 15:04] LABS: ACID FAST SPEC PROCESSING Concentration (.)
[2019-11-13 16:00] VITALS: BP 136/79
--- NOTE | 2019-11-13 16:30 | NUR ---
PT MEDICATED WITH PRN TYLENOL FOR C/O A HEADACHE. WILL MONITOR.
--- NOTE | 2019-11-13 17:30 | NUR ---
PRN TYLENOL EFFECTIVE PER PT.
[2019-11-13 20:00] VITALS: BP 117/86
[2019-11-14] VITALS: BP 144/77
[2019-11-14 06:33] LABS: HEMATOCRIT 33.5 % (37.0-47.0); HEMOGLOBIN 10.5 g/dl (12.0-16.0); MEAN CELL VOLUME 85.5 fl (81.0-99.0); MEAN CORPUSCULAR HGB 26.8 pg (27.0-31.0); MEAN CORPUSCULAR HGB CONC 31.3 g/dl (33.0-37.0); MEAN PLATELET VOLUME 9.5 fl (9.6-12.3); PLATELET COUNT AUTOMATED 297 10*3/uL (130-400); RED BLOOD COUNT 3.92 10*6/uL (4.10-5.10); RED CELL DISTRI WIDTH 15.2 % (0-14.5); WHITE BLOOD COUNT 12.2 10*3/uL (4.8-10.8)
[2019-11-14 06:46] LABS: CREATININE 1.2 mg/dL (0.55-1.02)
[2019-11-14 07:36] LABS: TOTAL CELLS COUNTED 100 #CELLS
[2019-11-14 07:37] LABS: PLATELET SUFFICIENCY NORMAL (NORMAL); POLYCHROMASIA SLIGHT
[2019-11-14 08:00] VITALS: BP 138/72
[2019-11-14 12:00] VITALS: BP 120/61
[2019-11-14 16:00] VITALS: BP 119/56
[2019-11-14 20:00] VITALS: BP 121/71
--- NOTE | 2019-11-14 20:12 | NUR ---
PATIENT IS RESTING IN BED WITH EASY AND REGULAR RESPERS ON 1L O2 VIA NC. ASSESSMENT IS COMPLETE WITH NO C/O OR S/S OF DISTRESS NOTED AT THIS TIME. BED IS LOW, LOCKED, AND CALL LIGHT IS WITHIN REACH. POPSICLE REQUESTED AND PROVIDED. WILL CONTINUE TO MONITOR, SEE SHIFT ASSESSMENT.
[2019-11-15] VITALS: BP 114/65
[2019-11-15 08:00] VITALS: BP 116/52
[2019-11-15 12:00] VITALS: BP 130/67
[2019-11-15 16:00] VITALS: BP 121/70
--- NOTE | 2019-11-15 16:35 | NUR ---
PATIENT IV INFILTRATED AGAIN DR. HUNTER AWARE AND MAY COME DISCHARGE PATIENT DO NOT ATTEMPT A NEW IV.
--- NOTE | 2019-11-15 18:21 | NUR ---
LEVAQUIN AND SOLUMEDROL CONVERTED TO PO FORM. OK TO LEAVE IV OUT.
--- NOTE | 2019-11-15 19:35 | NUR ---
PT RESTING IN BED. ASESSMENT COMPLETE. 1L NC IN PLACE. NO COMPLAINTS AT THIS TIME. CALL LIGHT WITHIN REACH. WILL CONTINUE TO MONITOR.
[2019-11-15 20:00] VITALS: BP 142/76
--- NOTE | 2019-11-15 22:21 | NUR ---
PER PT REQUEST PT MEDICATED WITH PRN SINEQUAN AND PRN FLEXERIL ORDERED FOR INSOMNIA AND MUSCLE SPASMS. BEATRICE CHECK EFFECTIVENESS. CALL LIGHT WITHIN REACH.
--- NOTE | 2019-11-15 23:36 | NUR ---
EARLIER SINEQUAN AND FLEXERIL EFFECTIVE. WILL MONITOR.
[2019-11-16] VITALS: BP 139/55
--- NOTE | 2019-11-16 03:23 | NUR ---
24 HR chart check completed.
[2019-11-16 06:53] LABS: HEMATOCRIT 31.9 % (37.0-47.0); HEMOGLOBIN 9.7 g/dl (12.0-16.0); MEAN CELL VOLUME 87.4 fl (81.0-99.0); MEAN CORPUSCULAR HGB 26.6 pg (27.0-31.0); MEAN CORPUSCULAR HGB CONC 30.4 g/dl (33.0-37.0); MEAN PLATELET VOLUME 9.2 fl (9.6-12.3); PLATELET COUNT AUTOMATED 310 10*3/uL (130-400); RED BLOOD COUNT 3.65 10*6/uL (4.10-5.10); RED CELL DISTRI WIDTH 15.7 % (0-14.5); WHITE BLOOD COUNT 15.6 10*3/uL (4.8-10.8)
[2019-11-16 07:15] LABS: BUN 27 mg/dl (7-24); CHLORIDE 100 mmol/L (98-107); POTASSIUM 4.1 mmol/L (3.5-5.1); SODIUM 136 mmol/L (136-145)
[2019-11-16 07:22] LABS: OVALOCYTES FEW; PLATELET SUFFICIENCY NORMAL (NORMAL); POLYCHROMASIA SLIGHT; TOTAL CELLS COUNTED 100 #CELLS
--- NOTE | 2019-11-16 07:30 | NUR ---
TOOK OVER CARE OF PT AT THIS TIME. PT RESTING IN BED, EYES OPEN; ALERT ORIENTED AND PLEASANT MOOD. RESPIRATIONS ARE UNLABORED ON 1L NC. ASSESSMENT COMPLETE. BP OBTAINED AND WNL. NO S/S OF DISTRESS. ALL NEEDS ARE MET. WILL CONTINUE TO MONITOR. CALL LIGHT IN REACH.
[2019-11-16 08:00] VITALS: BP 108/57
--- NOTE | 2019-11-16 10:00 | NUR ---
AM MEDICATIONS GIVEN AT THIS TIME. RESPIRATIONS UNLABORED. CALL LIGHT IN REACH.
[2019-11-16 12:00] VITALS: BP 121/64
[2019-11-16 16:00] VITALS: BP 153/83
--- NOTE | 2019-11-16 19:30 | NUR ---
PT RESTING IN BED. RESPIRATIONS EASY AND REGULAR. ASSESSMENT COMPLETE. 1L NC IN PLACE. NO COMPLAINTS AT THIS TIME. CALL LIGHT WITHIN REACH. WILL CONTINUE TO MONITOR.
[2019-11-16 20:00] VITALS: BP 123/69
--- NOTE | 2019-11-16 22:01 | NUR ---
PT REQUESTING PRN FLEXERIL AND SINEQUAN PER PT REQUEST AND ORDERED. WILL CHECK EFFECTIVENESS. CALL LIGHT WITHIN REACH.
--- NOTE | 2019-11-16 23:00 | NUR ---
EARLIER FLEXERIL AND SINEQUAN EFFECTIVE. WILL CONTINUE TO MONITOR.
[2019-11-17] VITALS: BP 150/75
--- NOTE | 2019-11-17 01:47 | NUR ---
24 HR chart check completed.
[2019-11-17 12:00] VITALS: BP 118/72
[2019-11-17 17:12] VITALS: BP 109/55
--- NOTE | 2019-11-17 18:12 | NUR ---
CCDIS Discharge instructions reviewed with patient/family. Patient receptive and verbalizes understanding. Follow-up care arranged. Written instructions given to patient/family. KIMBERLYN HUITRON
== END 2019-11-17 18:35 | disposition home or self-care (01) | DRG 139 ==
LOC: ED 15:27 → 4E 16:49
PROVIDERS: Emergency Medicine; Hospitalist; Internal Medicine Critical Care Medicine; ADMIT Internal Medicine
PROC: 0BC98ZZ Extirpation of Matter from Lingula Bronchus, Via Natural or Artificial Opening Endoscopic (ICD-10-PCS; principal; 2019-11-12)
PROC: 0BC48ZZ Extirpation of Matter from Right Upper Lobe Bronchus, Via Natural or Artificial Opening Endoscopic (ICD-10-PCS; 2019-11-12)
PROC: 0BC88ZZ Extirpation of Matter from Left Upper Lobe Bronchus, Via Natural or Artificial Opening Endoscopic (ICD-10-PCS; 2019-11-12)
PROC: 0BC58ZZ Extirpation of Matter from Right Middle Lobe Bronchus, Via Natural or Artificial Opening Endoscopic (ICD-10-PCS; 2019-11-12)
PROC: 0BC38ZZ Extirpation of Matter from Right Main Bronchus, Via Natural or Artificial Opening Endoscopic (ICD-10-PCS; 2019-11-12)
PROC: 0BC78ZZ Extirpation of Matter from Left Main Bronchus, Via Natural or Artificial Opening Endoscopic (ICD-10-PCS; 2019-11-12)
PROC: 0BC68ZZ Extirpation of Matter from Right Lower Lobe Bronchus, Via Natural or Artificial Opening Endoscopic (ICD-10-PCS; 2019-11-12)
PROC: 0BCB8ZZ Extirpation of Matter from Left Lower Lobe Bronchus, Via Natural or Artificial Opening Endoscopic (ICD-10-PCS; 2019-11-12)
PROC: 0BC18ZZ Extirpation of Matter from Trachea, Via Natural or Artificial Opening Endoscopic (ICD-10-PCS; 2019-11-12)
DX: J18.9 Pneumonia, unspecified organism (principal); J44.0 Chronic obstructive pulmonary disease with (acute) lower respiratory infection; J44.1 Chronic obstructive pulmonary disease with (acute) exacerbation; N17.9 Acute kidney failure, unspecified; E83.51 Hypocalcemia; D72.829 Elevated white blood cell count, unspecified; E66.01 Morbid (severe) obesity due to excess calories; N18.3 Chronic kidney disease, stage 3 (moderate); E78.5 Hyperlipidemia, unspecified; E44.0 Moderate protein-calorie malnutrition; E11.65 Type 2 diabetes mellitus with hyperglycemia; F32.9 Major depressive disorder, single episode, unspecified; J98.09 Other diseases of bronchus, not elsewhere classified; K59.00 Constipation, unspecified; M19.90 Unspecified osteoarthritis, unspecified site; J96.01 Acute respiratory failure with hypoxia; J20.9 Acute bronchitis, unspecified; F41.1 Generalized anxiety disorder; E11.22 Type 2 diabetes mellitus with diabetic chronic kidney disease; I12.9 Hypertensive chronic kidney disease with stage 1 through stage 4 chronic kidney disease, or unspecified chronic kidney disease; R91.8 Other nonspecific abnormal finding of lung field; E11.649 Type 2 diabetes mellitus with hypoglycemia without coma; Z79.4 Long term (current) use of insulin; Z80.1 Family history of malignant neoplasm of trachea, bronchus and lung; Z82.3 Family history of stroke; Z83.3 Family history of diabetes mellitus; Z82.49 Family history of ischemic heart disease and other diseases of the circulatory system; Z68.41 Body mass index [BMI] 40.0-44.9, adult; Z88.5 Allergy status to narcotic agent; Z88.8 Allergy status to other drugs, medicaments and biological substances

== ENCOUNTER 2020-01-19 18:03 | Inpatient (IN) | payer OTHER ==
[~2020-01-19] VITALS: Ht 160 cm; Wt 104.8 kg
[2020-01-19 18:09] VITALS: BP 99/54
[2020-01-19 18:50] LABS: BASO # 0.1 10*3/uL (0.0-0.1); BASO % 0.4 % (0.0-1.0); EOS # 0.2 10*3/uL (0.0-0.4); EOS % 1.2 % (1.0-4.0); HEMATOCRIT 38.9 % (37.0-47.0); LYMPH # 2.5 10*3/uL (1.3-4.4); LYMPH % 13.1 % (27.0-41.0); MEAN CELL VOLUME 82.4 fl (81.0-99.0); MEAN CORPUSCULAR HGB 27.3 pg (27.0-31.0); MEAN CORPUSCULAR HGB CONC 33.2 g/dl (33.0-37.0); MEAN PLATELET VOLUME 10.2 fl (9.6-12.3); MONO # 0.7 10*3/uL (0.1-1.0); MONO % 3.8 % (3.0-9.0); NEUT # 15.6 10*3/uL (2.3-7.9); NEUT % 80.8 % (47.0-73.0); PLATELET COUNT AUTOMATED 357 10*3/uL (130-400); RED BLOOD COUNT 4.72 10*6/uL (4.10-5.10); RED CELL DISTRI WIDTH 14.6 % (0-14.5); WHITE BLOOD COUNT 19.3 10*3/uL (4.8-10.8)
[2020-01-19 19:04] LABS: ACT PARTIAL THROMBO TIME 25.9 SECONDS (20.0-32.1)
[2020-01-19 19:11] LABS: ALBUMIN 3.2 gm/dl (3.1-4.5); ALKALINE PHOSPHATASE 142 U/L (45-117); BUN 25 mg/dl (7-24); CHLORIDE 97 mmol/L (98-107); CREATININE 1.68 mg/dL (0.55-1.02); POTASSIUM 3.1 mmol/L (3.5-5.1); SGOT/AST 5 IU/L (3-35); SGPT/ALT 15 U/L (12-78); SODIUM 136 mmol/L (136-145); TOTAL PROTEIN 7.2 gm/dL (6.4-8.2); TROPONIN I < 0.015 ng/ml (<0.045)
[2020-01-19 20:10] VITALS: BP 108/66
[2020-01-19 21:00] VITALS: BP 109/60
[2020-01-19 22:00] VITALS: BP 102/63
--- NOTE | 2020-01-19 23:04 | NUR ---
REPORT GIVEN TO VALERIANO Marquis RN AT THIS TIME
[2020-01-19 23:26] LABS: LDH 132 U/L (84-246)
[2020-01-19 23:45] VITALS: BP 118/69
--- NOTE | 2020-01-19 23:45 | NUR ---
A 54, admitted to [facility], under the services of FRANK Ngo DO with a diagnosis of SUSPECTED COVID 19 VIRUS INFECTION RIGHT MIDDLE LOBE PNEUMONIA. Chief complaint is SOB. Patient arrived via stretcher from ER. Monitor applied. Initial assessment completed. Vital signs taken and recorded. FRANK NGO DO notified of admission to the unit. Orders received. See assessment for past medical history, medications and allergies. Patient and/or family oriented to unit. [facility] visitation policy reviewed. Clothing/patient valuable form completed. ALBINO ROGERS
--- NOTE | 2020-01-20 04:20 | NUR ---
PT IS ASLEEP IN BED AT THIS TIME. RESPS ARE EASY AND NONLABORED. 3L NC IN USE. BED IS LOW, CALL LIGHT WITHIN REACH. WILL CONTINUE TO MONITOR.
[2020-01-20 06:07] LABS: ALBUMIN 2.8 gm/dl (3.1-4.5); CREATININE 1.48 mg/dL (0.55-1.02); TOTAL PROTEIN 6.6 gm/dL (6.4-8.2)
[2020-01-20 06:14] LABS: BASO % 0.2 % (0.0-1.0); EOS % 0.2 % (1.0-4.0); HEMATOCRIT 38.1 % (37.0-47.0); LYMPH # 2.5 10*3/uL (1.3-4.4); LYMPH % 15.1 % (27.0-41.0); MEAN CELL VOLUME 83.9 fl (81.0-99.0); MEAN CORPUSCULAR HGB 26.2 pg (27.0-31.0); MEAN CORPUSCULAR HGB CONC 31.2 g/dl (33.0-37.0); MEAN PLATELET VOLUME 10.5 fl (9.6-12.3); MONO # 0.7 10*3/uL (0.1-1.0); MONO % 3.9 % (3.0-9.0); NEUT # 13.2 10*3/uL (2.3-7.9); NEUT % 79.9 % (47.0-73.0); PLATELET COUNT AUTOMATED 348 10*3/uL (130-400); RED BLOOD COUNT 4.54 10*6/uL (4.10-5.10); RED CELL DISTRI WIDTH 14.6 % (0-14.5); WHITE BLOOD COUNT 16.5 10*3/uL (4.8-10.8)
[2020-01-20 06:18] LABS: POTASSIUM 4.3 mmol/L (3.5-5.1)
--- NOTE | 2020-01-20 06:35 | NUR ---
CONSULT CALLED TO DR MARES ANSWERING SERVICE
--- NOTE | 2020-01-20 06:55 | NUR ---
CONSULT CALLED TO DR MERINO
[2020-01-20 08:00] VITALS: BP 132/76
[2020-01-20 12:00] VITALS: BP 124/72
--- NOTE | 2020-01-20 12:08 | NUR ---
Supervisor Shuttle Veneering in to talk to patient. Patient states lives at HOME with SISTER. There are 2 steps in the home. Physician: [facility] Home health services: NO Patient's level of ADLs: INDEPENDENT Patient has working utilities: YES DME: [facility] Follow-up physician's appointment after d/c: WILL BE MADE BY HOSPITALIST NURSE DIRECTOR ON DISCHARGE Does patient want to access PORTAL?: NO Discharge plan PT LIVES AT HOME WITH HER SISTER AND IS INDEPENDENT IN HER CARE. DENIES NEEDS AT HOME. PLANS TO RETURN HOME WITH SISTER WHEN MEDICALLY STABLE. WILL CONTINUE TO FOLLOW. STATES SHE WILL HAVE A RIDE HOME.. MANJIT VALDOVINOS
--- NOTE | 2020-01-20 14:00 | NUR ---
Patient resting quietly with no c/o discomfort. Respirations easy and regular. Vital signs stable. No overt distress. FAISAL GONZALES
[2020-01-20 16:00] VITALS: BP 106/52
--- NOTE | 2020-01-20 16:30 | NUR ---
PATIENT SITTING UP IN BED. NO DISTRESS NOTED. FLAT AFFECT. PULSE OX 94% VIA 3LNC. PT DENIES ANY SOB AT REST. PT DENIES COUGH DURING ASSESSMENT. IVF MAINTAINED PER ORDER. BSG 219-(5 UNITS OF INSULIN GIVEN PER S/S). WILL CONTINUE TO MONITOR. VSS. CALL LIGHT WITHIN REACH.
[2020-01-20 20:00] VITALS: BP 94/60
--- NOTE | 2020-01-20 20:15 | NUR ---
PT RESTING IN BED. RESP-EASY AND REGULAR. NO C/O AT THIS TIME. NO SOB NOTED. CALL LIGHT IN REACH. SEE SHIFT ASSESSMENT.
--- NOTE | 2020-01-20 22:00 | NUR ---
PT RESTING IN BED. REQUESTING DOXEPIN FOR SLEEP, SEE EMAR. BSG-427, SEE EMAR. CALL LIGHT IN REACH. NO C/O AT THIS TIME. CALL LIGHT IN REACH.
[2020-01-21] VITALS: BP 100/62
--- NOTE | 2020-01-21 | NUR ---
RESTING IN BED. TOLERATED ROUTINE IV MEDICATION. NO C/O AT THIS TIME. CALL LIGHT IN REACH. SEE SHIFT ASSESSMENT.
--- NOTE | 2020-01-21 04:00 | NUR ---
SLEEPING IN BED. RESP-EASY AND REGULAR. OXYGEN IN USE. CALL LIGHT IN REACH.
--- NOTE | 2020-01-21 05:50 | NUR ---
TOLERATED ROUTINE MED WITH NO PROBLEM. BSG-265, SEE EMAR. NO C/O AT THIS TIME. PULSE OX 93% RA. NO SOB NOTED. CALL LIGHT IN REACH.
[2020-01-21 06:13] LABS: BASO % 0.2 % (0.0-1.0); EOS % 0.1 % (1.0-4.0); HEMATOCRIT 40.2 % (37.0-47.0); LYMPH # 1.7 10*3/uL (1.3-4.4); LYMPH % 13.8 % (27.0-41.0); MEAN CELL VOLUME 83.6 fl (81.0-99.0); MEAN CORPUSCULAR HGB 26.8 pg (27.0-31.0); MEAN CORPUSCULAR HGB CONC 32.1 g/dl (33.0-37.0); MEAN PLATELET VOLUME 10.3 fl (9.6-12.3); MONO # 0.4 10*3/uL (0.1-1.0); MONO % 2.9 % (3.0-9.0); NEUT % 81.5 % (47.0-73.0); PLATELET COUNT AUTOMATED 331 10*3/uL (130-400); RED BLOOD COUNT 4.81 10*6/uL (4.10-5.10); RED CELL DISTRI WIDTH 14.6 % (0-14.5); WHITE BLOOD COUNT 12.3 10*3/uL (4.8-10.8)
[2020-01-21 06:47] LABS: ALBUMIN 2.9 gm/dl (3.1-4.5); POTASSIUM 4.3 mmol/L (3.5-5.1)
[2020-01-21 06:52] LABS: CREATININE 1.17 mg/dL (0.55-1.02); TOTAL PROTEIN 6.6 gm/dL (6.4-8.2)
[2020-01-21 07:07] LABS: HEP B CORE AB, IGM Negative (Negative); HEPATITIS B SURFACE AG Negative (Negative); HEPATITIS C AB <0.1 (0.0-0.9); HEPATITIS C VIRUS ANTIBODY <0.1 s/co (0.0-0.9)
[2020-01-21 08:00] VITALS: BP 146/56
--- NOTE | 2020-01-21 08:32 | NUR ---
DR JC ROUNDED AND SEEN PT.
--- NOTE | 2020-01-21 10:36 | NUR ---
DR MERINO ROUNDED AND SEEN PT. ORDERS RECIEVED.
--- NOTE | 2020-01-21 11:12 | NUR ---
PT UP AND AMBULATED TO BATHROOM. SPO2 88% ON RA. ENCOURAGED PT TO PUT O2 ON UNTIL SHE CATCHES HER BREATHE. PT SPO2 ON 2LNC 95%.VOICES NO OTHER NEEDS AT THIS TIME.CALL LIGHT IN REACH.
--- NOTE | 2020-01-21 11:56 | NUR ---
PT CONTINUES TO DENY HOME NEEDS. WILL RETURN HOME WHEN MEDICALLY STABLE. WILL CONTINUE TO FOLLOW.
[2020-01-21 12:00] VITALS: BP 144/68; BP 91/57
--- NOTE | 2020-01-21 13:17 | NUR ---
PT SITTING IN BED WATCHING TV.SPO2 94 % ON 2LNC.VOICES NO NEEDS AT THIS TIME. PT ON TELEPHONE.WILL CONTINUE TO MONITOR.CALL LIGHT IN REACH.
[2020-01-21 16:00] VITALS: BP 133/80
--- NOTE | 2020-01-21 17:00 | NUR ---
NOTIFIED DR MEHTA OF [facility] 510.REFLUX ORDERED.
--- NOTE | 2020-01-21 17:50 | NUR ---
IV started right forearm with #22 protective cath after 1 attempts. Site prepped with Chloroprep. Sterile dressing applied. Patient tolerated procedure well. HEPCHRISTOPHERED KE LONG
--- NOTE | 2020-01-21 18:15 | NUR ---
NOTIFIED DR MEHTA OF BLOOD GLUCOSE REFLUX OF 533. ORDER RECIEVED FOR 10 UNITS HUMALOG.
[2020-01-21 20:00] VITALS: BP 126/80
--- NOTE | 2020-01-21 21:36 | NUR ---
EVENING MEDICATIONSGIVEN AT THIS TIME. PATIENT DENIES ANY NEEDS AT THIS TIME. DRY NON-PRODUCTIVE COUGH HEARD. PATIENT DENIES SPUTUM PRODUCTION. CALL LIGHT WITHIN REACH. RN WILL CONTINUE TO MONITOR
--- NOTE | 2020-01-21 21:51 | NUR ---
PATIENT GIVEN SINEQUAN PER REQUEST. PATIENT COMPLAINING OF NOT BEING ABLE TO SLEEP. WILL MONITOR FOR EFFECTIVENESS OF MEDICATION
[2020-01-22] VITALS: BP 142/74
--- NOTE | 2020-01-22 00:32 | NUR ---
PATIENT AGAIN ASKING FOR SNACKS, PATIENT HAS ALREADY BEEN PROVIDED MULTIPLE SNACKS AND JUICES BY MULTIPLE STAFF MEMBERS. THIS RN ATTEMPTED TO EDUCATE PATIENT ABOUT DIET AND IMPORTANCE OF MAINTAINING LOW ARB AND LOW SUGARS WHILE TAKING STERIODS IV. PATIENT DOES NOT VERBALIZE UNDERSTANDING AND INSTEAD BECOMES ANGRY AT RN.
--- NOTE | 2020-01-22 04:54 | NUR ---
Patient resting quietly with no c/o discomfort. Respirations easy and regular. Vital signs stable. No overt distress ON 2 LITERS NASAL CANNULA. HAS CALL LIGHT WITHIN REACH IF NEEDED MICHAEL ZAMBRANO
--- NOTE | 2020-01-22 07:50 | NUR ---
NOTIFIED DR MCGEE OF INABIILITY TO COLLECT AM LABS.HE ADVISED ME TO NOTIFY DR MEHTA.
[2020-01-22 08:00] VITALS: BP 132/77
--- NOTE | 2020-01-22 08:10 | NUR ---
NOTIFIED DR MEHTA OF INABILITY TO OBTAIN LABS THIS AM.
--- NOTE | 2020-01-22 08:30 | NUR ---
DR ALVES ROUNDED AND SEEN PT.
--- NOTE | 2020-01-22 08:32 | NUR ---
NOTIFIED DR MERINO OF CORONAVIRUS NEGATIVE RESULT AND THAT I AND LAB HAD BEEN UNABLE TO COLLECT LABS THIS AM AFTER MULTIPLE ATTEMPTS. DR MERINO OK TO HOLD ON MIDLINE PLACEMENT AND MOVING PT UNTIL DR MERINO SEES PATIENT.
--- NOTE | 2020-01-22 11:41 | NUR ---
PULSE OX ON R/A REST 95. HEARTRATE 96. B/P 132/77. PT. AMBULATED IN [place] ON R/A, PULSE OX 90%, PT. STOPPED AND TOOK A SHORT BREAK, CONTINUED WALK ON R/A IN [place], SAT 93 TO 95%, PT. ENCOURAGED TO STOP WHEN NEEDED AND TO TAKE DEEPER BREATH ON OCCASION. PT. RETURNED TO ROOM, RESTING AT BEDSIDE ON R/A, PULSE OX 93 AND INCREASING TO 95%, HEARTRATE 95. DR. DUGGAN AND RN NOTIFIED OF RESULTS.
[2020-01-22] MEDS ORDERED: LEVAQUIN750 M1 PO (11:58)
[2020-01-22] MEDS ORDERED: AUGMENTIN 875-875 MG PO (11:58)
[2020-01-22 12:00] VITALS: BP 126/60
[2020-01-22] MEDS ORDERED: PREDNISONE10 MG PO (12:23)
--- NOTE | 2020-01-22 13:26 | NUR ---
Discharge instructions reviewed with patient/family. Patient receptive and verbalizes understanding. Follow-up care arranged. Written instructions given to patient/family. KE LONG
== END 2020-01-22 12:44 | disposition home or self-care (01) | DRG 137 ==
LOC: ED 18:03 → 4NE 21:56 → EDHOLD 21:56 → 4NE 22:34
PROVIDERS: Emergency Medicine; Internal Medicine; ADMIT Internal Medicine
DX: J15.6 Pneumonia due to other Gram-negative bacteria (principal); J44.1 Chronic obstructive pulmonary disease with (acute) exacerbation; J44.0 Chronic obstructive pulmonary disease with (acute) lower respiratory infection; J96.01 Acute respiratory failure with hypoxia; N17.0 Acute kidney failure with tubular necrosis; E87.6 Hypokalemia; E87.8 Other disorders of electrolyte and fluid balance, not elsewhere classified; E11.65 Type 2 diabetes mellitus with hyperglycemia; E11.22 Type 2 diabetes mellitus with diabetic chronic kidney disease; N18.3 Chronic kidney disease, stage 3 (moderate); E83.41 Hypermagnesemia; R74.8 Abnormal levels of other serum enzymes; R79.82 Elevated C-reactive protein (CRP); F17.210 Nicotine dependence, cigarettes, uncomplicated; I12.9 Hypertensive chronic kidney disease with stage 1 through stage 4 chronic kidney disease, or unspecified chronic kidney disease; Z20.828 Contact with and (suspected) exposure to other viral communicable diseases; F41.1 Generalized anxiety disorder; K21.9 Gastro-esophageal reflux disease without esophagitis; F32.9 Major depressive disorder, single episode, unspecified; Z80.1 Family history of malignant neoplasm of trachea, bronchus and lung; Z82.49 Family history of ischemic heart disease and other diseases of the circulatory system; Z82.3 Family history of stroke; Z84.1 Family history of disorders of kidney and ureter; Z79.82 Long term (current) use of aspirin; Z79.899 Other long term (current) drug therapy; Z79.4 Long term (current) use of insulin; E66.01 Morbid (severe) obesity due to excess calories; Z68.41 Body mass index [BMI] 40.0-44.9, adult; T38.0X5A Adverse effect of glucocorticoids and synthetic analogues, initial encounter; Y92.89 Other specified places as the place of occurrence of the external cause

== ENCOUNTER 2020-02-10 14:11 | Inpatient (IN) | payer OTHER ==
[~2020-02-10] VITALS: Ht 160 cm; Wt 104.5 kg
[~2020-02-10 14:11] MED LIST changes: +AUGMENTIN 875-875 MG PO
[2020-02-10 14:24] VITALS: BP 86/40
[2020-02-10 15:14] LABS: BASO # 0.1 10*3/uL (0.0-0.1); BASO % 0.2 % (0.0-1.0); EOS # 0.1 10*3/uL (0.0-0.4); EOS % 0.6 % (1.0-4.0); HEMATOCRIT 35.5 % (37.0-47.0); LYMPH # 2.4 10*3/uL (1.3-4.4); LYMPH % 11.7 % (27.0-41.0); MEAN CELL VOLUME 80.3 fl (81.0-99.0); MEAN CORPUSCULAR HGB 27.1 pg (27.0-31.0); MEAN CORPUSCULAR HGB CONC 33.8 g/dl (33.0-37.0); MEAN PLATELET VOLUME 11.7 fl (9.6-12.3); MONO # 1.1 10*3/uL (0.1-1.0); MONO % 5.2 % (3.0-9.0); NEUT # 16.9 10*3/uL (2.3-7.9); NEUT % 81.3 % (47.0-73.0); PLATELET COUNT AUTOMATED 257 10*3/uL (130-400); RED BLOOD COUNT 4.42 10*6/uL (4.10-5.10); RED CELL DISTRI WIDTH 14.6 % (0-14.5); WHITE BLOOD COUNT 20.8 10*3/uL (4.8-10.8)
[2020-02-10 15:32] LABS: ACT PARTIAL THROMBO TIME 28.2 SECONDS (20.0-32.1)
[2020-02-10 15:37] LABS: ALBUMIN 3.1 gm/dl (3.1-4.5); ALKALINE PHOSPHATASE 128 U/L (45-117); BUN 17 mg/dl (7-24); CHLORIDE 93 mmol/L (98-107); CREATININE 1.73 mg/dL (0.55-1.02); LIPASE 87 U/L (73-393); SGOT/AST 12 IU/L (3-35); SGPT/ALT 22 U/L (12-78); SODIUM 129 mmol/L (136-145); TOTAL PROTEIN 6.9 gm/dL (6.4-8.2)
[2020-02-10 15:44] VITALS: BP 96/40
[2020-02-10 15:52] LABS: TROPONIN I < 0.015 ng/ml (<0.045)
[2020-02-10 16:43] VITALS: BP 97/52
--- NOTE | 2020-02-10 16:43 | NUR ---
RESTING IN NO DISTRESS AT THIS TIME. CALL LIGHT IN REACH.
[2020-02-10 17:41] VITALS: BP 97/40
[2020-02-10 18:30] VITALS: BP 100/42
--- NOTE | 2020-02-10 18:30 | NUR ---
A 54, admitted to , under the services of ALFREDA Izquierdo MD with a diagnosis of SEVERE SEPSIS, PNEUMONIA. Chief complaint is SOB. Patient arrived via bed from ER. Monitor applied. Initial assessment completed. Vital signs taken and recorded. ALFREDA IZQUIERDO MD notified of admission to the unit. Orders received. See assessment for past medical history, medications and allergies. Patient and/or family oriented to unit. [facility] visitation policy reviewed. Clothing/patient valuable form completed. OLGA DELGADO
--- NOTE | 2020-02-10 18:57 | NUR ---
DR. MCGEE NOTIFIED OF COMPLETE MED REC
[2020-02-10 20:00] VITALS: BP 112/46
--- NOTE | 2020-02-10 20:00 | NUR ---
RESTING IN BED WITH HOB SLIGHTLY ELEVATED. 02 INTACT AT 2LPM VIA NASAL CANNULA. PULSE OX 97%. LUNGS WITH WHEEZES & RHONCHI; MOIST COUGH NOTED. PT. VOICES NO C/O AT THIS TIME. CALL LIGHT WITHIN REACH.
--- NOTE | 2020-02-10 22:00 | NUR ---
BLOOD SUAR 341; COVERAGE PER EMAR.
[2020-02-11] VITALS: BP 120/50
--- NOTE | 2020-02-11 01:11 | NUR ---
C/O HEADACHE; MEDICATED WITH TYLENOL.
[2020-02-11 01:47] LABS: BILIRUBIN NEGATIVE (NEGATIVE); BLOOD TRACE-INTACT (NEGATIVE); CLARITY SL CLOUDY (CLEAR); COLOR YELLOW (YELLOW); EPITHELIAL CELLS 41-50; GLUCOSE 3+ (NEGATIVE); KETONE NEGATIVE (NEGATIVE); LEUKO ESTERASE NEGATIVE (NEGATIVE); NITRITE NEGATIVE (NEGATIVE); UROBILINOGEN 0.2 E.U./dl (0.2-1.0)
[2020-02-11 01:48] LABS: BACTERIA 1+; YEAST TRACE
--- NOTE | 2020-02-11 04:00 | NUR ---
RESTING IN BED WITH EYES CLOSED. TYLENOL GIVEN EARLIER APPARENTLY EFFECTIVE. CALL LIGHT WITHIN REACH.
--- NOTE | 2020-02-11 06:30 | NUR ---
BLOOD SUGAR 149; NO COVERAGE REQUIRED.
[2020-02-11 06:54] LABS: BASO # 0.1 10*3/uL (0.0-0.1); BASO % 0.3 % (0.0-1.0); EOS # 0.1 10*3/uL (0.0-0.4); EOS % 0.5 % (1.0-4.0); HEMATOCRIT 33.6 % (37.0-47.0); LYMPH # 2.9 10*3/uL (1.3-4.4); LYMPH % 11.9 % (27.0-41.0); MEAN CELL VOLUME 82.8 fl (81.0-99.0); MEAN CORPUSCULAR HGB 27.1 pg (27.0-31.0); MEAN CORPUSCULAR HGB CONC 32.7 g/dl (33.0-37.0); MEAN PLATELET VOLUME 10.8 fl (9.6-12.3); MONO # 1.1 10*3/uL (0.1-1.0); MONO % 4.5 % (3.0-9.0); NEUT # 19.6 10*3/uL (2.3-7.9); NEUT % 81.9 % (47.0-73.0); PLATELET COUNT AUTOMATED 225 10*3/uL (130-400); RED BLOOD COUNT 4.06 10*6/uL (4.10-5.10); RED CELL DISTRI WIDTH 14.6 % (0-14.5); WHITE BLOOD COUNT 23.9 10*3/uL (4.8-10.8)
[2020-02-11 07:01] LABS: CREATININE 1.34 mg/dL (0.55-1.02); POTASSIUM 3.1 mmol/L (3.5-5.1)
[2020-02-11 08:00] VITALS: BP 128/62
--- NOTE | 2020-02-11 08:00 | NUR ---
PATIENT DROWSY NO COMPLAINTS
--- NOTE | 2020-02-11 08:30 | NUR ---
Container Finisher in to talk to patient. Patient states lives at home with her niece in her sister's house. There are 0 steps in the home. Physician: Dr. Marek Iverson Pharmacy: [facility] Home health services: none Patient's level of ADLs: INDEPENDENT Patient has working utilities: yes DME: nebulizer, shower chair Follow-up physician's appointment after d/c: she prefers to make her own follow up appt after discharge Does patient want to access PORTAL?: no Discharge plan discussed with patient. She lives with her niece in her sister's house. She is independent in her ADLs and ambulation. Discussed home health care services and she denies any home needs at this time. When medically stable she will be discharged to home. She states family will provide transportation on discharge. SAUL QUEZADA
--- NOTE | 2020-02-11 10:04 | NUR ---
MEDICATED WITH PRN TYLENOL PER ORDER FOR C/O HEADACHE.
[2020-02-11 12:00] VITALS: BP 99/62
--- NOTE | 2020-02-11 12:20 | NUR ---
DR. MURRELL HAS ROUNDED.
[2020-02-11 13:46] LABS: URINE AMPHETAMINES < 1000 (1000ng/ml); URINE BARBITURATES < 200 (200ng/ml); URINE BENZODIAZEPINES < 200 (200ng/ml); URINE CANNABINOIDS (THC) < 50 (50ng/ml); URINE COCAINE < 300 (300ng/ml); URINE METHADONE < 300 (300ng/ml); URINE OPIATES > 300 (300ng/ml); URINE PHENCYCLIDINE < 25 (25ng/ml)
--- NOTE | 2020-02-11 14:05 | NUR ---
SPEECH PATHOLOGY Clinical swallowing evaluation completed as per orders. Patient is dx with sepsis and pneumonia. Further history includes lung nodules, COPD, HTN, anxiety. Patient reported that for the past couple weeks she has been having difficulty swallowing both food and liquids. Oral skills revealed presence of loose fitting upper denture. Reduced lingual ROM was displayed. Patient had difficulty volitionally swallowing and reported pain in mouth and throat. She was assessed with coarse solid and thin liquid. She swallowed thin liquid in a timely manner with no cough or wet vocal quality but endorsed pain. She stated that she is getting over thrush. She displayed lengthy chewing of coarse solid then swallowed in a timely manner with no residue, cough or wet vocal quality. Recommend patient remain on a regular diet and thin liquid but order foods that are soft and moist. Recommend safe swallow precautions including upright positioning, alternating liquid and solid, taking breaks as needed when eating and following reflux precautions as she reported a history of reflux. Follow up therapy is recommended to ensure safe tolerance of diet and adherence to precautions. Results and alysa. were shared with patient and she verbalized understanding. Refer to report in [employer] for further information. Thank you for this referral. SHAHID NOEL MSCCC-BASKET PATCHER
[2020-02-11 16:00] VITALS: BP 110/65
[2020-02-11 20:00] VITALS: BP 100/48
--- NOTE | 2020-02-11 20:00 | NUR ---
RESTING IN BED. 02 INTACT. LUNGS WITH WHEEZES & RHONCHI; MOIST PRODUCTIVE COUGH PER PT. PULSE OX 9$%. EDEMA NOTED TO BILATERAL LOWER EXTREMITIES. IV FLUIDS INFUSING ORDERED. CALL LIGHT WITHIN REACH.
--- NOTE | 2020-02-11 23:20 | NUR ---
WING INFORMED ME THAT SHE COULD NOT OBTAIN PT'S BP.
--- NOTE | 2020-02-11 23:25 | NUR ---
PT.'S BP 90/50 MANUALLY. PT.'S CIGARETTES, PIZZA HUT ASSISTANT & INSULIN PEN ON THE FLOOR. ASKED PATIENT IF SHE WAS TAKING ANY OTHER MEDICATIONS THAT WERE NOT PRESCRIBED TO HER & SHE STATED "NO". PUT CIGARETTES IN [place]. WILL CONTINUE TO MONITOR.
--- NOTE | 2020-02-11 23:30 | NUR ---
INFORMED DR. MCGEE OF PT'S LOW BLOOD PRESSURE; NO NEW ORDERS RECEIVED.
[2020-02-12] VITALS: BP 90/50
--- NOTE | 2020-02-12 06:30 | NUR ---
BLOOD SUGAR 290; COVERAGE PER EMAR.
--- NOTE | 2020-02-12 06:32 | NUR ---
CALLED TO INFORM DR. MCGEE ABOUT PATIENT C/O HAVING HEADACHES. PT. TEARY & UPSET THIS MORNING; STATES THAT SHE USUALLY DOES NOT GET HEADACHES. MEDICATED WITH TYLENOL FOR HEADACHE. IV FLUIDS CONTINUE TO INFUSE WITHOUT DIFFICULTY; SITE ASYMPTOMATIC. 02 INTACT. CALL LIGHT WITHIN REACH.
--- NOTE | 2020-02-12 07:00 | NUR ---
ARRIVED ON SHIFT, RECEIVED REPORT FROM OFF GOING NURSE, ASSUMED CARE OF PATIENT.
--- NOTE | 2020-02-12 07:15 | NUR ---
INTRODUCED SELF TO PATIENT, BED IN LOW POSITION, WHEEL LOCKS ENGAGED, SR UP X 2 FOR TURNING AND REPOSITIONING, CALL LIGHT WITHIN REACH, NO NEEDS VOICED AT THIS TIME. WHITE BOARD UPDATED.
[2020-02-12 08:00] VITALS: BP 90/50
--- NOTE | 2020-02-12 08:08 | NUR ---
Shift chart check completed.
--- NOTE | 2020-02-12 08:23 | NUR ---
SPEECH PATHOLOGY Patient was seen for treatment this am. Treatment was conducted during breakfast meal. Patient was alert, sitting upright in bed eating. She reported that she was feeling better and had only minimal soreness in her mouth and throat. Patient reported she has been taking a swish/spit medication which has helped the soreness. For breakfast, she consumed a breakfast sandwich with carranza and egg, with no overt difficulty. She also consumed pudding and drank liquid from a straw without difficulty. She stated that it was "pretty easy" to swallow. Patient displayed no s/s aspiration with any food or liquid. Recommend she remain on present diet with continued use of universal safe swallow precautions. As she is tolerating diet without difficulty, recommend discharge from therapy at this time. Thank you for this referral. It has been a pleasure taking part in this patient's care. SHAHID NOEL MSCCC-SOUND ART INSTRUCTOR
--- NOTE | 2020-02-12 08:30 | NUR ---
Elevator Installer Apprentice in to see patient. No new needs or request at this time. She denies any home needs. When medically stable she will be discharged to home.
[2020-02-12 12:00] VITALS: BP 107/61
--- NOTE | 2020-02-12 12:12 | NUR ---
CALL PLACED TODR. HUNTER ADVISED OF ELEVATED BS OF 407, ADVISED I GAVE 22UNITS ORDER, NO OTHER ORDERS AT THIS TIME.
[2020-02-12 13:41] LABS: BASO % 0.1 % (0.0-1.0); EOS # 0.1 10*3/uL (0.0-0.4); EOS % 0.5 % (1.0-4.0); HEMATOCRIT 32.3 % (37.0-47.0); LYMPH # 1.7 10*3/uL (1.3-4.4); LYMPH % 9.7 % (27.0-41.0); MEAN CELL VOLUME 84.1 fl (81.0-99.0); MEAN CORPUSCULAR HGB 27.3 pg (27.0-31.0); MEAN CORPUSCULAR HGB CONC 32.5 g/dl (33.0-37.0); MONO # 0.6 10*3/uL (0.1-1.0); MONO % 3.6 % (3.0-9.0); NEUT # 14.6 10*3/uL (2.3-7.9); NEUT % 84.8 % (47.0-73.0); PLATELET COUNT AUTOMATED 212 10*3/uL (130-400); RED BLOOD COUNT 3.84 10*6/uL (4.10-5.10); WHITE BLOOD COUNT 17.2 10*3/uL (4.8-10.8)
[2020-02-12 13:56] LABS: ALBUMIN 2.3 gm/dl (3.1-4.5); CREATININE 1.28 mg/dL (0.55-1.02); POTASSIUM 3.5 mmol/L (3.5-5.1); TOTAL PROTEIN 6.2 gm/dL (6.4-8.2)
[2020-02-12 16:00] VITALS: BP 106/50
[2020-02-12 20:00] VITALS: BP 93/54
--- NOTE | 2020-02-12 22:39 | NUR ---
PEPCID GIVEN PER PT REQUEST FOR C/O INDIGESTION. DOXEPIN GIVEN FOR C/O INSOMNIA. WILL MONITOR.
[2020-02-13] VITALS: BP 98/56
[2020-02-13 08:00] VITALS: BP 110/44
--- NOTE | 2020-02-13 11:55 | NUR ---
MEDICATED WITH PRN PO TYLENOL FOR LEFT FLANK/BASE OF LUNG PAIN WHICH INCREASES W/INSPIRATION.
[2020-02-13 11:58] VITALS: BP 114/64
--- NOTE | 2020-02-13 12:45 | NUR ---
PRN PO TYLENOL A LITTLE EFFECTIVE, PAIN NOT BAD NOW, PER PATIENT.
[2020-02-13 16:00] VITALS: BP 129/63
[2020-02-13 20:00] VITALS: BP 114/44
--- NOTE | 2020-02-13 21:07 | NUR ---
COMPLAINTS OF BACK PAIN. NEW ORDER FOR TYLENOL REC'D FROM . SEE MAR.
--- NOTE | 2020-02-13 21:13 | NUR ---
MADE AWARE OF BSG CHECK 424 WITH A REPEAT BSG OF 371. ORDERED TO USE 371 BSG AND USE SLIDING SCALE ORDERS. SEE MAR.
--- NOTE | 2020-02-13 21:40 | NUR ---
TYLENOL GIVEN FOR COMPLAINTS OF BACK PAIN. CALL LIGHT IN REACH. WILL MONITOR.
--- NOTE | 2020-02-13 22:36 | NUR ---
PER PT, TYLENOL WAS EFFECTIVE.
[2020-02-14] VITALS: BP 105/49
--- NOTE | 2020-02-14 03:41 | NUR ---
24HR CHART CHECK COMPLETED
[2020-02-14 06:13] LABS: BASO % 0.4 % (0.0-1.0); EOS # 0.2 10*3/uL (0.0-0.4); EOS % 1.6 % (1.0-4.0); HEMATOCRIT 29.1 % (37.0-47.0); LYMPH # 2.3 10*3/uL (1.3-4.4); LYMPH % 19.9 % (27.0-41.0); MEAN CELL VOLUME 86.1 fl (81.0-99.0); MEAN CORPUSCULAR HGB 26.9 pg (27.0-31.0); MEAN CORPUSCULAR HGB CONC 31.3 g/dl (33.0-37.0); MEAN PLATELET VOLUME 10.7 fl (9.6-12.3); MONO # 0.7 10*3/uL (0.1-1.0); MONO % 6.2 % (3.0-9.0); NEUT % 70.4 % (47.0-73.0); PLATELET COUNT AUTOMATED 270 10*3/uL (130-400); RED BLOOD COUNT 3.38 10*6/uL (4.10-5.10); RED CELL DISTRI WIDTH 15.2 % (0-14.5); WHITE BLOOD COUNT 11.4 10*3/uL (4.8-10.8)
[2020-02-14 06:38] LABS: BUN 16 mg/dl (7-24); CHLORIDE 108 mmol/L (98-107); CREATININE 0.89 mg/dL (0.55-1.02); POTASSIUM 4.2 mmol/L (3.5-5.1); SODIUM 139 mmol/L (136-145)
[2020-02-14 08:00] VITALS: BP 110/50
--- NOTE | 2020-02-14 08:06 | NUR ---
MEDICATED WITH PRN PO TYLENOL FOR C/O FRONTAL HEADACHE.
--- NOTE | 2020-02-14 09:05 | NUR ---
PRN PO TYLENOL SOMEWHAT EFFECTIVE, PER PATIENT.
[2020-02-14 12:00] VITALS: BP 106/37
[2020-02-14 16:00] VITALS: BP 121/73
--- NOTE | 2020-02-14 17:02 | NUR ---
PT MEDICATED FOR C/O 4/10 ACHING HEADACHE. WILL CONTINUE TO MONITOR FOR RELIEF. VOICES NO OTHER CONCERNS AT THIS TIME. RESPS EASY AND NON LABORED. NO S/S OF DISTRESS. CALL LIGHT WITHIN REACH.
[2020-02-14 20:00] VITALS: BP 118/53
--- NOTE | 2020-02-14 21:38 | NUR ---
CALLED FOR PERSISTENT COMPLAINTS OF A "CAFFEINE ARANDA", SUGGESTED TO TRY FIORICET, NEW ORDER RECD'. SEE MAR. PT ALSO REQUESTING FLEXERIL AND VISTARIL WHICH SHE TAKES AT HOME BUT IS ON HOLD. OK TO RESTART PER .
--- NOTE | 2020-02-14 21:52 | NUR ---
FIORICET AND FLEXERIL GIVEN FOR COMPLAINTS OF LEG PAIN AND PERSISTENT "CAFFEINE" HEADACHE. WILL MONITOR. CALL LIGHT IN REACH.
--- NOTE | 2020-02-14 22:46 | NUR ---
PER PT, FLEXERIL AND FIORICET WERE EFFECTIVE. CALL LIGHT WITHIN REACH.
[2020-02-15] VITALS: BP 115/49
--- NOTE | 2020-02-15 05:46 | NUR ---
FIORICET GIVEN FOR C/O HEADACHE. WILL MONITOR.
--- NOTE | 2020-02-15 06:38 | NUR ---
FIORICET EFFECTIVE FOR HEADACHE.
[2020-02-15 07:03] LABS: BUN 14 mg/dl (7-24); CHLORIDE 106 mmol/L (98-107); CREATININE 0.86 mg/dL (0.55-1.02); POTASSIUM 4.4 mmol/L (3.5-5.1); SODIUM 137 mmol/L (136-145)
--- NOTE | 2020-02-15 07:58 | NUR ---
PER DR. MERINO, HE DOES NOT PLAN FOR BRONCHOSCOPY TODAY OR TOMORROW. RESUMING DIET.
[2020-02-15 08:00] VITALS: BP 124/48
--- NOTE | 2020-02-15 08:15 | NUR ---
MEDICATED WITH PRN PO TYLENOL AND FLEXERIL FOR LEFT SIDE LOWER POSTERIOR RIB CAGE PAIN.
--- NOTE | 2020-02-15 09:00 | NUR ---
PRN PO TYLENOL AND FLEXERIL EFFECTIVE, PER PATIENT.
--- NOTE | 2020-02-15 10:07 | NUR ---
Spoke to Dr. Iverson regarding continuation or discontinuation of quality assurance monitor chassis. New orders received to discontinue telemetry.
[2020-02-15 12:00] VITALS: BP 124/77
[2020-02-15 16:00] VITALS: BP 123/72
--- NOTE | 2020-02-15 17:05 | NUR ---
MEDICATED WITH PRN PO FIORCET FOR MIGRAINE HEADACHE PAIN.
--- NOTE | 2020-02-15 18:00 | NUR ---
PRN PO FIORCET SOMEWHAT EFFECTIVE, PER PATIENT.
[2020-02-15 20:00] VITALS: BP 118/64
--- NOTE | 2020-02-15 20:30 | NUR ---
PT. RESTING IN BED. SOB NOTED WITH EXERTION. LUNGS DIMINISHED BILAT, PULSE OX 95% ON 2L NC. ABDOMEN SOFTLY DISTENDED AND NORMO, OBESE. EDEMA VS OBESITY. TUBI POWDER LINE REPAIRER ON BILAT. NEW IV STARTED IN LEFT SHOULDER/CHEST AREA. LEXII CROW RN
[2020-02-16] VITALS: BP 129/78
[2020-02-16 07:03] LABS: BUN 15 mg/dl (7-24); CHLORIDE 107 mmol/L (98-107); CREATININE 1.03 mg/dL (0.55-1.02); POTASSIUM 4.5 mmol/L (3.5-5.1); SODIUM 138 mmol/L (136-145)
--- NOTE | 2020-02-16 07:30 | NUR ---
PT SITTING UP IN BED. VOICES NO CONCERNS AT THIS TIME. RESPS EASY AND NON LABORED. NO S/S OF DISTRESS NOTED. VSS. WHITE BOARD UPADTED. POC DISCUSSED W PT. CALL LIGHT WITHIN REACH. PT STATES SHE FEELS MUCH BETTER. OXYGEN INTACT. EDEMA V OBESITY. TUBI RULES EXAMINER ON.
[2020-02-16 08:00] VITALS: BP 114/70
--- NOTE | 2020-02-16 08:38 | NUR ---
Discussed discharge planning with Dr. Iverson. New orders received for a midline and patient will go home with IV antibiotics. Awaiting script.
--- NOTE | 2020-02-16 09:00 | NUR ---
Skid Machine Operator in to see patient. Discussed she will need IV antibiotics at home and a midline catheter and she is agreeable. Explained she will need a home health company to show her how to administer the antibiotics and she is agreeable. She states her sister is a nurse and will be able to help her. When provided with a list of agencies she chose [facility]. Awaiting script from Dr. Iverson. When medically stable she will be discharged to home with [facility] services.
--- NOTE | 2020-02-16 09:48 | NUR ---
PT TAKEN OFF FLOOR FOR MIDLINE PLACEMENT
[2020-02-16 12:00] VITALS: BP 125/64
--- NOTE | 2020-02-16 12:49 | NUR ---
DISCHARGE INSTRUCTIONS/TEACHING GIVEN TO PT REGARDING CARE. VERBALIZED UNDERSTANDING. PT STATES SHE WANTS TO EAT LUNCH BEFORE SHE LEAVES.
--- NOTE | 2020-02-16 13:30 | NUR ---
Discharge instructions reviewed with patient/family. Patient receptive and verbalizes understanding. Follow-up care arranged. Written instructions given to patient/family. ORACIO CRENA The Discharge Plan/Instructions have been completed.4 Hep Lock discontinued. Site asymptomatic. Pressure applied. Sterile dressing applied. ORACIO CERNA PT GIVEN INSTRUCTION REGARDING R UPPER ARM MIDLINE. VERBALIZED UNDERSTANDING AND REPEATED BACK.
--- NOTE | 2020-02-16 14:04 | NUR ---
Patient discharged to home with home IV antibiotic prescriptions for Rocephin and Vancomycin. Discussed with Dr. Mason. Awaiting prescriptions to set up home IV antibiotics.
--- NOTE | 2020-02-16 14:08 | NUR ---
Spoke to Dr. Mason. She is not currently in the hospital. She will provide prescriptions in the am for Vancomycin 1500 mg daily for 7 days and Rocephin 1 gm BID for 7 days.
--- NOTE | 2020-02-16 14:21 | NUR ---
Spoke to Pau at [facility] and Nimco at [facility] regarding referrals but waiting on IV antibiotics prescriptions. Faxed referrals to [facility] and [facility].
--- NOTE | 2020-02-16 15:15 | NUR ---
Received call from Nimco at [facility]. Patient is covered at 100%. Will fax scripts in the am.
--- NOTE | 2020-02-16 15:17 | NUR ---
Called patient via phone regarding home IV antibiotics. She has the prescriptions at home. Explained she will not be able to get those filled at a local pharmacy. Explained Dr. Mason will drop off new prescriptions to in the morning and will send them to [facility]. Discussed [employer] being the company that is going to provide her home IV antibiotics and [facility] will be the home health company that will teach her or her sister how to infuse them. She verbalized an understanding. Informed her the IV antibiotics are covered at 100% per [facility]. Discussed she will be receiving phone calls tomorrow from [employer] and [facility]. She verbalized an understanding.
--- NOTE | 2020-02-17 08:35 | NUR ---
Received prescriptions from Dr. Mason for home IV antibiotics. Faxed prescriptions for Rocephin 1 gm IV BID and Vancomycin 1500 mg IV daily to [facility] and [facility]. Both prescriptions are for 7 days.
== END 2020-02-16 13:30 | disposition home or self-care (01) | DRG 720 ==
LOC: ED 14:11 → EDHOLD 17:51 → 4E 17:51
PROVIDERS: Emergency Medicine; Internal Medicine Nephrology; Student in an Organized Health Care Education/Training Program; ADMIT Internal Medicine
PROC: 05HB33Z Insertion of Infusion Device into Right Basilic Vein, Percutaneous Approach (ICD-10-PCS; principal; 2020-02-16)
PROC: B54MZZA Ultrasonography of Right Upper Extremity Veins, Guidance (ICD-10-PCS; 2020-02-16)
DX: A41.9 Sepsis, unspecified organism (principal); J15.212 Pneumonia due to Methicillin resistant Staphylococcus aureus; I95.9 Hypotension, unspecified; J20.9 Acute bronchitis, unspecified; N17.0 Acute kidney failure with tubular necrosis; E87.1 Hypo-osmolality and hyponatremia; E87.6 Hypokalemia; R65.20 Severe sepsis without septic shock; Z20.828 Contact with and (suspected) exposure to other viral communicable diseases; E87.8 Other disorders of electrolyte and fluid balance, not elsewhere classified; E87.2 Acidosis; J44.0 Chronic obstructive pulmonary disease with (acute) lower respiratory infection; N18.3 Chronic kidney disease, stage 3 (moderate); E11.22 Type 2 diabetes mellitus with diabetic chronic kidney disease; E66.01 Morbid (severe) obesity due to excess calories; F41.1 Generalized anxiety disorder; J44.1 Chronic obstructive pulmonary disease with (acute) exacerbation; E11.65 Type 2 diabetes mellitus with hyperglycemia; M19.90 Unspecified osteoarthritis, unspecified site; K21.9 Gastro-esophageal reflux disease without esophagitis; I12.9 Hypertensive chronic kidney disease with stage 1 through stage 4 chronic kidney disease, or unspecified chronic kidney disease; F32.9 Major depressive disorder, single episode, unspecified; R91.8 Other nonspecific abnormal finding of lung field; Z68.41 Body mass index [BMI] 40.0-44.9, adult; Z88.5 Allergy status to narcotic agent; Z88.8 Allergy status to other drugs, medicaments and biological substances; Z82.49 Family history of ischemic heart disease and other diseases of the circulatory system; Z80.1 Family history of malignant neoplasm of trachea, bronchus and lung; Z82.3 Family history of stroke; Z84.1 Family history of disorders of kidney and ureter; Z79.4 Long term (current) use of insulin; Z79.82 Long term (current) use of aspirin; Z79.899 Other long term (current) drug therapy

== ENCOUNTER → 2020-02-29 | Outpatient (CLI) | payer OTHER | END | disposition home or self-care (01) | LOC: RAD 12:36 | DX: J92.9 Pleural plaque without asbestos (principal); J18.9 Pneumonia, unspecified organism ==

== ENCOUNTER → 2020-05-05 | Outpatient (CLI) | payer OTHER ==
[2020-05-05 10:46] LABS: BASO # 0.1 10*3/uL (0.0-0.1); BASO % 0.6 % (0.0-1.0); EOS # 0.3 10*3/uL (0.0-0.4); EOS % 2.4 % (1.0-4.0); HEMATOCRIT 35.5 % (37.0-47.0); LYMPH # 2.6 10*3/uL (1.3-4.4); LYMPH % 23.7 % (27.0-41.0); MEAN CELL VOLUME 82.8 fl (81.0-99.0); MEAN CORPUSCULAR HGB 26.8 pg (27.0-31.0); MEAN CORPUSCULAR HGB CONC 32.4 g/dl (33.0-37.0); MEAN PLATELET VOLUME 10.2 fl (9.6-12.3); MONO # 0.6 10*3/uL (0.1-1.0); MONO % 5.7 % (3.0-9.0); NEUT # 7.3 10*3/uL (2.3-7.9); NEUT % 67.2 % (47.0-73.0); PLATELET COUNT AUTOMATED 348 10*3/uL (130-400); RED BLOOD COUNT 4.29 10*6/uL (4.10-5.10); RED CELL DISTRI WIDTH 14.1 % (0-14.5); WHITE BLOOD COUNT 10.9 10*3/uL (4.8-10.8)
[2020-05-05 11:22] LABS: CREATININE 1.41 mg/dL (0.55-1.02); POTASSIUM 3.1 mmol/L (3.5-5.1)
== END | disposition home or self-care (01) ==
LOC: LAB 10:23
PROVIDERS: ATTEND Internal Medicine
DX: J44.9 Chronic obstructive pulmonary disease, unspecified (principal); E11.9 Type 2 diabetes mellitus without complications; L02.419 Cutaneous abscess of limb, unspecified

== ENCOUNTER 2020-08-31 18:46 | Emergency (ER) | payer MEDICARE, MEDICAID ==
[~2020-08-31] VITALS: Ht 160 cm; Wt 106.6 kg
[2020-08-31 18:47] VITALS: BP 160/70
[2020-08-31 19:23] LABS: BASO % 0.2 % (0.0-1.0); HEMATOCRIT 41.4 % (37.0-47.0); LYMPH # 1.2 10*3/uL (1.3-4.4); MEAN CELL VOLUME 86.8 fl (81.0-99.0); MEAN CORPUSCULAR HGB 26.8 pg (27.0-31.0); MEAN CORPUSCULAR HGB CONC 30.9 g/dl (33.0-37.0); MEAN PLATELET VOLUME 11.3 fl (9.6-12.3); MONO # 0.7 10*3/uL (0.1-1.0); MONO % 3.9 % (3.0-9.0); NEUT # 14.7 10*3/uL (2.3-7.9); NEUT % 88.2 % (47.0-73.0); PLATELET COUNT AUTOMATED 263 10*3/uL (130-400); RED BLOOD COUNT 4.77 10*6/uL (4.10-5.10); WHITE BLOOD COUNT 16.7 10*3/uL (4.8-10.8)
[2020-08-31 19:38] LABS: ALBUMIN 3.9 gm/dl (3.1-4.5); CREATININE 2.32 mg/dL (0.55-1.02); POTASSIUM 4.3 mmol/L (3.5-5.1); TOTAL PROTEIN 7.8 gm/dL (6.4-8.2)
== END 2020-08-31 22:34 | disposition home or self-care (01) ==
LOC: ED 18:46
PROVIDERS: Internal Medicine
DX: S42.001A Fracture of unspecified part of right clavicle, initial encounter for closed fracture (principal); S00.93XA Contusion of unspecified part of head, initial encounter; E11.65 Type 2 diabetes mellitus with hyperglycemia; E87.8 Other disorders of electrolyte and fluid balance, not elsewhere classified; Z79.899 Other long term (current) drug therapy; Z79.4 Long term (current) use of insulin; Z79.82 Long term (current) use of aspirin; W19.XXXA Unspecified fall, initial encounter; Y93.89 Activity, other specified; Y92.89 Other specified places as the place of occurrence of the external cause; Y99.8 Other external cause status

== ENCOUNTER 2020-09-02 16:13 | Inpatient (IN) | payer MEDICARE, MEDICAID ==
[~2020-09-02] VITALS: Ht 160 cm; Wt 109.9 kg
[2020-09-02 16:15] VITALS: BP 151/51
[2020-09-02 16:47] LABS: HEMATOCRIT 37.6 % (37.0-47.0); MEAN CELL VOLUME 84.7 fl (81.0-99.0); MEAN CORPUSCULAR HGB 26.8 pg (27.0-31.0); MEAN CORPUSCULAR HGB CONC 31.6 g/dl (33.0-37.0); PLATELET COUNT AUTOMATED 222 10*3/uL (130-400); RED BLOOD COUNT 4.44 10*6/uL (4.10-5.10); RED CELL DISTRI WIDTH 14.2 % (0-14.5); WHITE BLOOD COUNT 13.8 10*3/uL (4.8-10.8)
[2020-09-02 16:57] LABS: ACT PARTIAL THROMBO TIME 27.1 SECONDS (20.0-32.1); INTERNATIONAL NORM RATIO 0.9 (2.0-3.5)
[2020-09-02 17:03] LABS: ALBUMIN 3.4 gm/dl (3.1-4.5); ALKALINE PHOSPHATASE 144 U/L (45-117); BUN 29 mg/dl (7-24); CHLORIDE 94 mmol/L (98-107); CREATININE 1.87 mg/dL (0.55-1.02); LIPASE 37 U/L (73-393); POTASSIUM 3.7 mmol/L (3.5-5.1); SGOT/AST 7 IU/L (3-35); SGPT/ALT 24 U/L (12-78); SODIUM 129 mmol/L (136-145); TOTAL PROTEIN 7.1 gm/dL (6.4-8.2)
[2020-09-02 17:07] LABS: POLYCHROMASIA SLIGHT; TOTAL CELLS COUNTED 100 #CELLS
[2020-09-02 17:08] LABS: PLATELET SUFFICIENCY NORMAL (NORMAL)
[2020-09-02 17:10] LABS: TROPONIN I < 0.015 ng/ml (<0.045)
--- NOTE | 2020-09-02 17:11 | NUR ---
CRITICAL LAB BGL [address] NOTIFIED
[2020-09-02 18:27] VITALS: BP 154/46
[2020-09-02 19:30] VITALS: BP 144/82
--- NOTE | 2020-09-02 21:49 | NUR ---
PT AMBULATORY TO ER 5.PT PROVIDED FLOOR BED.
[2020-09-02 22:00] VITALS: BP 132/70
--- NOTE | 2020-09-02 22:00 | NUR ---
PT GIVEN TURKEY SAND. AND ICE WATER. WHIT ZAMORA RN.
[2020-09-02 23:10] VITALS: BP 152/74
--- NOTE | 2020-09-03 02:03 | NUR ---
PT ASKING FOR HER NIGHT TIME MEDICATIONS . WHIT ZAMORA RN
--- NOTE | 2020-09-03 03:59 | NUR ---
PT SLEEPING AT THIS TIME CALL LIGHT IN REACH. BED IN LOW POSITION SIDE RAIL UP X2 WILL CONTINUE TO MONITOR. WHIT ZAMORA RN.
--- NOTE | 2020-09-03 07:10 | NUR ---
REPORT RECEIVED FROM WHIT ZAMORA RN
[2020-09-03] MEDS ORDERED: LANTUS SOL100 UNIT/1 SC (11:50)
--- NOTE | 2020-09-03 13:30 | NUR ---
PT ASSISTED TO BATHROOM AND BACK TO ROOM. NO VOICED C/O AT THIS TIME.
--- NOTE | 2020-09-03 14:20 | NUR ---
PATIENT C/O OF RIGHT SHOULDER PAIN, SPOKE TO VIA PHONE AND WAS GIVE VERBAL ORDER TO GIVE PERCOSET 5/325 MG PO.
[2020-09-03 21:25] VITALS: BP 144/87
[2020-09-04 06:39] LABS: BASO % 0.1 % (0.0-1.0); EOS # 0.1 10*3/uL (0.0-0.4); EOS % 0.9 % (1.0-4.0); HEMATOCRIT 34.1 % (37.0-47.0); LYMPH # 4.6 10*3/uL (1.3-4.4); LYMPH % 33.4 % (27.0-41.0); MEAN CELL VOLUME 84.2 fl (81.0-99.0); MEAN CORPUSCULAR HGB 26.7 pg (27.0-31.0); MEAN CORPUSCULAR HGB CONC 31.7 g/dl (33.0-37.0); MEAN PLATELET VOLUME 11.1 fl (9.6-12.3); MONO # 0.7 10*3/uL (0.1-1.0); MONO % 4.8 % (3.0-9.0); NEUT # 8.4 10*3/uL (2.3-7.9); NEUT % 60.2 % (47.0-73.0); PLATELET COUNT AUTOMATED 230 10*3/uL (130-400); RED BLOOD COUNT 4.05 10*6/uL (4.10-5.10); RED CELL DISTRI WIDTH 14.3 % (0-14.5); WHITE BLOOD COUNT 13.9 10*3/uL (4.8-10.8)
[2020-09-04 07:04] LABS: ALBUMIN 2.6 gm/dl (3.1-4.5); CHLORIDE 107 mmol/L (98-107); POTASSIUM 3.3 mmol/L (3.5-5.1); SGOT/AST 14 IU/L (3-35); SGPT/ALT 16 U/L (12-78); SODIUM 139 mmol/L (136-145)
[2020-09-04 07:07] LABS: ALKALINE PHOSPHATASE 113 U/L (45-117); BUN 19 mg/dl (7-24); CREATININE 1.11 mg/dL (0.55-1.02); TOTAL PROTEIN 5.9 gm/dL (6.4-8.2)
--- NOTE | 2020-09-04 09:02 | NUR ---
PATIENT UP TO RESTROOM WITHOUT ASSISTANCE. NO VOICED COMPLAINTS AT THIS TIME.
[2020-09-04 13:40] VITALS: BP 130/75
--- NOTE | 2020-09-04 13:40 | NUR ---
Time: 1339 A 55 year old FEMALE admitted to 4E under services of DR. ELSA ABRAHAM,[facility]. Pt. arrived via bed from ER. Chief complaint: PAIN. MADDIE THOMASON
--- NOTE | 2020-09-04 14:35 | NUR ---
SPOKE TO AND ASKED IF THE PATIENT WAS GOING TO STAY UNDER HIM D/T COVID PRECAUTIONS AND HE STATES TO KEEP THE PATIENT UNDER HIM. ALSO NOTIFIED PATIENT CO RIGHT SHOULDER PAIN. NEW ORDERS RECEIVED.
--- NOTE | 2020-09-04 15:14 | NUR ---
MEDICATED WITH PRN DILAUDID FOR CO RIGHT SHOULDER PAIN. WILL ASSESS EFFECTIVENESS. CALL LIGHT IN REACH. DENIES ANY OTHER NEEDS AT THIS TIME.
[2020-09-04 16:00] VITALS: BP 129/89
--- NOTE | 2020-09-04 16:01 | NUR ---
Shift chart check completed.
--- NOTE | 2020-09-04 16:14 | NUR ---
DILAUDID EFFECTIVE PER PATIENT.
[2020-09-04 20:00] VITALS: BP 133/59
--- NOTE | 2020-09-04 20:00 | NUR ---
ASSUMED CARE OF PATIENT. PATIENT IS AAOX3 RESTING IN BED WITH EASY AND REGULAR RESPERS ON ROOM AIR. ASSESSMENT IS COMPLETE WITH NO C/O OR S/S OF DISTRESS NOTED AT THIS TIME. BED IS LOW, LOCKED, AND CALL LIGHT IS WITHIN REACH. WILL CONTINUE TO MONITOR, SEE INTERVENTIONS.
[2020-09-04] MEDS ORDERED: BUSPIRONE HCL30 MG PO (21:10)
[2020-09-04] MEDS ORDERED: OXYBUTYNIN CHLOR5 M1 PO (22:39)
[2020-09-04] MEDS ORDERED: ZIPRASIDONE HCL40 MG PO (22:40)
--- NOTE | 2020-09-04 22:50 | NUR ---
SPOKE WITH DR. HUNTER IN REGARDS TO PATIENT C/O PAIN TO RIGHT SHOULDER. DILAUDID 0.25 ORDERED ONE TIME.
--- NOTE | 2020-09-04 23:44 | NUR ---
ONE TIME DOSE OF DILAUDID GIVEN AT THIS TIME FOR PATIENT C/O RIGHT ARM/SHOULDER PAIN. CALL LIGHT IS WITHIN REACH, WILL MONITOR EFFECT.
[2020-09-05] VITALS: BP 126/59
--- NOTE | 2020-09-05 00:30 | NUR ---
PRN MEDICATION APPEARS EFFECTIVE, PATIENT SLEEPING. RESPERS EASY AND REGULAR ON ROOM AIR. CALL LIGHT IS WITHIN REACH.
[2020-09-05 06:30] LABS: BASO % 0.3 % (0.0-1.0); EOS # 0.2 10*3/uL (0.0-0.4); EOS % 1.5 % (1.0-4.0); HEMATOCRIT 35.6 % (37.0-47.0); LYMPH # 3.5 10*3/uL (1.3-4.4); LYMPH % 32.9 % (27.0-41.0); MEAN CELL VOLUME 83.2 fl (81.0-99.0); MEAN CORPUSCULAR HGB 26.9 pg (27.0-31.0); MEAN CORPUSCULAR HGB CONC 32.3 g/dl (33.0-37.0); MEAN PLATELET VOLUME 10.7 fl (9.6-12.3); MONO # 0.7 10*3/uL (0.1-1.0); MONO % 6.8 % (3.0-9.0); NEUT # 6.2 10*3/uL (2.3-7.9); NEUT % 57.9 % (47.0-73.0); PLATELET COUNT AUTOMATED 230 10*3/uL (130-400); RED BLOOD COUNT 4.28 10*6/uL (4.10-5.10); RED CELL DISTRI WIDTH 14.3 % (0-14.5); WHITE BLOOD COUNT 10.7 10*3/uL (4.8-10.8)
[2020-09-05 06:40] LABS: ALBUMIN 2.6 gm/dl (3.1-4.5); ALKALINE PHOSPHATASE 95 U/L (45-117); BUN 15 mg/dl (7-24); CHLORIDE 107 mmol/L (98-107); CREATININE 0.93 mg/dL (0.55-1.02); SGOT/AST 17 IU/L (3-35); SGPT/ALT 18 U/L (12-78); SODIUM 141 mmol/L (136-145); TOTAL PROTEIN 5.9 gm/dL (6.4-8.2)
[2020-09-05 06:41] LABS: POTASSIUM 3.6 mmol/L (3.5-5.1)
[2020-09-05 08:00] VITALS: BP 136/54
--- NOTE | 2020-09-05 08:00 | NUR ---
ASSESSMENT COMPLETE. PATIENT C/O RIGHT SHOULDER PAIN AND NEEDS SOMETHING FOR PAIN. DENIES ANY OTHER NEEDS. RESPS WNL ON 2L NC. CALL LIGHT WITHIN REACH.
--- NOTE | 2020-09-05 08:04 | NUR ---
NOTIFIED PATIENTS COVID WAS NEGATIVE AND PATIENT REQUESTING SOMETHING RIC RIGHT SHOULDER PAIN. NEW ORDERS RECEIVED.
--- NOTE | 2020-09-05 08:23 | NUR ---
Shift chart check completed.
--- NOTE | 2020-09-05 08:42 | NUR ---
DILAUDID GIVEN PER ORDER FOR CO RIGHT SHOULDER PAIN. WILL REASSESS PAIN.
--- NOTE | 2020-09-05 09:00 | NUR ---
Concrete Mixer Truck Driver in to talk to patient. Patient states lives at home with niece. There are no steps in the home. Physician: tamym [facility]acy: [facility] health services: [facility] Patient's level of ADLs: INDEPENDENT Patient has working utilities: all working DME: shower chair, nebulizer Follow-up physician's appointment after d/c: patient prefers to make own follow up appointment Does patient want to access PORTAL?: no Discharge plan discussed with patient she lives at home, is independent in adls and ambulation, she states she will return home when discharged and denies any home needs, case management will follow. BIJAL JETT
--- NOTE | 2020-09-05 09:42 | NUR ---
DILAUDID EFFECTIVE PER PATIENT.
[2020-09-05 12:00] VITALS: BP 132/55
[2020-09-05] MEDS ORDERED: DOXYCYCLINE100 M3 PO (14:25)
--- NOTE | 2020-09-05 17:54 | NUR ---
PHYSICAL THERAPY Nursing screen received and chart reviewed. Discharge summary stating patient will discharge this date. No PT needs at this time. Thank you. Evelyn Brito,PT,DPT
--- NOTE | 2020-09-05 18:06 | NUR ---
Discharge instructions reviewed with patient/family. Patient receptive and verbalizes understanding. Follow-up care arranged. Written instructions given to patient/family. IV REMOVED. MADDIE THOMASON
== END 2020-09-05 18:06 | disposition home or self-care (01) | DRG 637 ==
LOC: ED 16:13 → 4E 18:23 → ED 18:23 → EDHOLD 18:23 → 4E 09-04 11:17
PROVIDERS: Emergency Medicine; ADMIT Internal Medicine; ATTEND Internal Medicine
DX: E11.00 Type 2 diabetes mellitus with hyperosmolarity without nonketotic hyperglycemic-hyperosmolar coma (NKHHC) (principal); N17.0 Acute kidney failure with tubular necrosis; R65.11 Systemic inflammatory response syndrome (SIRS) of non-infectious origin with acute organ dysfunction; J44.1 Chronic obstructive pulmonary disease with (acute) exacerbation; E87.1 Hypo-osmolality and hyponatremia; E44.0 Moderate protein-calorie malnutrition; Z68.41 Body mass index [BMI] 40.0-44.9, adult; F41.1 Generalized anxiety disorder; F32.9 Major depressive disorder, single episode, unspecified; E11.22 Type 2 diabetes mellitus with diabetic chronic kidney disease; N18.30 Chronic kidney disease, stage 3 unspecified; D64.9 Anemia, unspecified; I12.9 Hypertensive chronic kidney disease with stage 1 through stage 4 chronic kidney disease, or unspecified chronic kidney disease; F17.210 Nicotine dependence, cigarettes, uncomplicated; E83.41 Hypermagnesemia; E87.8 Other disorders of electrolyte and fluid balance, not elsewhere classified; S42.031A Displaced fracture of lateral end of right clavicle, initial encounter for closed fracture; E11.65 Type 2 diabetes mellitus with hyperglycemia; D72.810 Lymphocytopenia; Z20.828 Contact with and (suspected) exposure to other viral communicable diseases; Z88.8 Allergy status to other drugs, medicaments and biological substances; Z88.5 Allergy status to narcotic agent; Z79.899 Other long term (current) drug therapy; Y93.89 Activity, other specified; Y92.89 Other specified places as the place of occurrence of the external cause; Y99.8 Other external cause status; Z80.1 Family history of malignant neoplasm of trachea, bronchus and lung; Z82.3 Family history of stroke; Z82.49 Family history of ischemic heart disease and other diseases of the circulatory system; Z79.82 Long term (current) use of aspirin

== ENCOUNTER 2020-10-17 15:42 | Observation (INO) | payer OTHER, MEDICAID ==
[~2020-10-17] VITALS: Ht 160 cm; Wt 113.9 kg
[~2020-10-17 15:42] MED LIST changes: +BUSPIRONE HCL30 MG PO; +LANTUS SOL100 UNIT/1 SC; +OXYBUTYNIN CHLOR5 M1 PO; +ZIPRASIDONE HCL40 MG PO
[2020-10-17 15:50] VITALS: BP 138/78
[2020-10-17 16:33] LABS: BASO # 0.1 10*3/uL (0.0-0.1); BASO % 0.5 % (0.0-1.0); EOS # 0.4 10*3/uL (0.0-0.4); EOS % 3.1 % (1.0-4.0); HEMATOCRIT 31.8 % (37.0-47.0); LYMPH # 2.7 10*3/uL (1.3-4.4); LYMPH % 23.1 % (27.0-41.0); MEAN CELL VOLUME 84.4 fl (81.0-99.0); MEAN CORPUSCULAR HGB 26.5 pg (27.0-31.0); MEAN CORPUSCULAR HGB CONC 31.4 g/dl (33.0-37.0); MEAN PLATELET VOLUME 9.2 fl (9.6-12.3); MONO # 0.8 10*3/uL (0.1-1.0); MONO % 6.4 % (3.0-9.0); NEUT # 7.8 10*3/uL (2.3-7.9); NEUT % 66.6 % (47.0-73.0); PLATELET COUNT AUTOMATED 394 10*3/uL (130-400); RED BLOOD COUNT 3.77 10*6/uL (4.10-5.10); RED CELL DISTRI WIDTH 14.4 % (0-14.5); WHITE BLOOD COUNT 11.8 10*3/uL (4.8-10.8)
[2020-10-17 16:54] LABS: ALBUMIN 3.1 gm/dl (3.1-4.5); BUN 9 mg/dl (7-24); CHLORIDE 110 mmol/L (98-107); CREATININE 1.11 mg/dL (0.55-1.02); POTASSIUM 3.7 mmol/L (3.5-5.1); SGOT/AST 10 IU/L (3-35); SGPT/ALT 15 U/L (12-78); SODIUM 140 mmol/L (136-145); TOTAL PROTEIN 7.2 gm/dL (6.4-8.2)
[2020-10-17 16:57] LABS: ALKALINE PHOSPHATASE 138 U/L (45-117)
[2020-10-17 16:58] LABS: TROPONIN I < 0.015 ng/ml (<0.045)
[2020-10-17 18:18] LABS: BILIRUBIN Negative (Negative); BLOOD Negative (Negative); CLARITY Clear (Clear); COLOR Yellow (Yellow); GLUCOSE Negative (Negative); KETONE Negative (Negative); LEUKO ESTERASE Trace (Negative); NITRITE Negative (Negative); PH 6.5 (4.5-8.0); UROBILINOGEN 0.2 E.U./dl (0.0-1.0)
[2020-10-17 18:25] LABS: EPITHELIAL CELLS 16-20; RBC 0-2 rbc/hpf (0-2)
[2020-10-17 18:45] LABS: URINE AMPHETAMINES < 1000 (1000ng/ml); URINE BARBITURATES < 200 (200ng/ml); URINE BENZODIAZEPINES < 200 (200ng/ml); URINE CANNABINOIDS (THC) > 50 (50ng/ml); URINE COCAINE < 300 (300ng/ml); URINE METHADONE < 300 (300ng/ml); URINE OPIATES < 300 (300ng/ml); URINE PHENCYCLIDINE < 25 (25ng/ml)
[2020-10-18 01:06] VITALS: BP 105/48
[2020-10-18 01:26] VITALS: BP 124/65
[2020-10-18] MEDS ORDERED: LORAZEPAM0.5 MG PO (01:42)
[2020-10-18] MEDS ORDERED: CYCLOBENZAPRINE10 MG PO (01:55)
[2020-10-18 06:49] LABS: BASO # 0.1 10*3/uL (0.0-0.1); BASO % 0.5 % (0.0-1.0); EOS # 0.4 10*3/uL (0.0-0.4); EOS % 3.6 % (1.0-4.0); HEMATOCRIT 31.4 % (37.0-47.0); LYMPH # 2.5 10*3/uL (1.3-4.4); LYMPH % 26.3 % (27.0-41.0); MEAN CELL VOLUME 85.1 fl (81.0-99.0); MEAN CORPUSCULAR HGB 26.6 pg (27.0-31.0); MEAN CORPUSCULAR HGB CONC 31.2 g/dl (33.0-37.0); MEAN PLATELET VOLUME 9.6 fl (9.6-12.3); MONO # 0.6 10*3/uL (0.1-1.0); MONO % 6.5 % (3.0-9.0); NEUT % 62.7 % (47.0-73.0); PLATELET COUNT AUTOMATED 364 10*3/uL (130-400); RED BLOOD COUNT 3.69 10*6/uL (4.10-5.10); RED CELL DISTRI WIDTH 14.6 % (0-14.5); WHITE BLOOD COUNT 9.6 10*3/uL (4.8-10.8)
[2020-10-18 07:17] LABS: BUN 11 mg/dl (7-24); CHLORIDE 109 mmol/L (98-107); CREATININE 1.09 mg/dL (0.55-1.02); POTASSIUM 3.7 mmol/L (3.5-5.1); SODIUM 140 mmol/L (136-145)
[2020-10-18 08:00] VITALS: BP 118/60
[2020-10-18 12:00] VITALS: BP 106/44
[2020-10-18 15:00] LABS: ABG BASE EXCESS 1.6 mmol/L (-2.0-2.0); ARTERIAL BLOOD GAS PH 7.433 (7.35-7.45)
[2020-10-18 16:00] VITALS: BP 128/60
[2020-10-18 20:01] VITALS: BP 107/57
[2021-01-04] MEDS ORDERED: SUBOXONE 8 MG-1 EACH SL (16:39)
[2021-01-04] MEDS ORDERED: NEURONTIN600 MG PO (16:40)
[2021-01-04] MEDS ORDERED: GEODON40 MG PO (16:41)
[2021-01-04] MEDS ORDERED: DOXEPIN HCL100 MG PO (16:41)
[2021-01-04] MEDS ORDERED: GEODON20 MG PO (16:42)
[2021-01-04] MEDS ORDERED: NORVASC5 MG PO (16:43)
[2021-01-04] MEDS ORDERED: LASIX20 MG PO (16:44)
[2021-01-04] MEDS ORDERED: ASPIRIN ADULT L81 M1 PO (16:44)
[2021-01-04] MEDS ORDERED: LANTUS SOL100 UNIT/1 SC (16:45)
[2021-01-04] MEDS ORDERED: ATIVAN1 MG PO (16:48)
== END 2020-10-18 22:20 | disposition left against medical advice (07) ==
LOC: ED 15:42 → EDHOLD 18:55 → 5E 18:55
PROVIDERS: Nurse Practitioner; Physician Assistant; Student in an Organized Health Care Education/Training Program; ADMIT Internal Medicine; ATTEND Internal Medicine
DX: E86.0 Dehydration (principal); R79.89 Other specified abnormal findings of blood chemistry; D72.810 Lymphocytopenia; D64.9 Anemia, unspecified; E44.0 Moderate protein-calorie malnutrition; J44.1 Chronic obstructive pulmonary disease with (acute) exacerbation; R29.6 Repeated falls; F14.90 Cocaine use, unspecified, uncomplicated; F15.90 Other stimulant use, unspecified, uncomplicated; F12.90 Cannabis use, unspecified, uncomplicated; F17.200 Nicotine dependence, unspecified, uncomplicated; Z98.890 Other specified postprocedural states

== ENCOUNTER 2021-05-17 13:58 | Inpatient (IN) | payer OTHER ==
[~2021-05-17] VITALS: Ht 160 cm; Wt 118.4 kg
[~2021-05-17 13:58] MED LIST changes: +ASPIRIN ADULT L81 M1 PO; +ATIVAN1 MG PO; +GEODON20 MG PO; +GEODON40 MG PO; +LASIX20 MG PO; +LORAZEPAM0.5 MG PO; +SUBOXONE 8 MG-1 EACH SL
[2021-05-17 14:03] VITALS: BP 154/85
[2021-05-17 14:45] LABS: BASO % 0.1 % (0.0-1.0); HEMATOCRIT 36.5 % (37.0-47.0); LYMPH # 1.6 10*3/uL (1.3-4.4); LYMPH % 10.4 % (27.0-41.0); MEAN CORPUSCULAR HGB 27.5 pg (27.0-31.0); MEAN CORPUSCULAR HGB CONC 33.2 g/dl (33.0-37.0); MEAN PLATELET VOLUME 9.9 fl (9.6-12.3); MONO # 0.8 10*3/uL (0.1-1.0); MONO % 5.6 % (3.0-9.0); NEUT # 12.5 10*3/uL (2.3-7.9); NEUT % 83.2 % (47.0-73.0); PLATELET COUNT AUTOMATED 381 10*3/uL (130-400); RED CELL DISTRI WIDTH 14.1 % (0-14.5); WHITE BLOOD COUNT 15.1 10*3/uL (4.8-10.8)
[2021-05-17 15:01] LABS: ALBUMIN 3.2 gm/dl (3.1-4.5); ALKALINE PHOSPHATASE 171 U/L (45-117); BUN 14 mg/dl (7-24); CHLORIDE 97 mmol/L (98-107); CREATININE 1.43 mg/dL (0.55-1.02); LIPASE 37 U/L (73-393); POTASSIUM 3.8 mmol/L (3.5-5.1); SGOT/AST 6 IU/L (3-35); SGPT/ALT 16 U/L (12-78); SODIUM 132 mmol/L (136-145)
[2021-05-17 15:03] LABS: TROPONIN I < 0.015 ng/ml (<0.045)
[2021-05-17 17:33] LABS: BILIRUBIN Negative (Negative); BLOOD Negative (Negative); CLARITY Clear (Clear); COLOR Yellow (Yellow); GLUCOSE 3+ (Negative); KETONE Negative (Negative); LEUKO ESTERASE Negative (Negative); NITRITE Negative (Negative); PH 5.5 (4.5-8.0); SPECIFIC GRAVITY 1.025 (1.001-1.030); UROBILINOGEN 0.2 E.U./dl (0.0-1.0)
[2021-05-17 17:42] LABS: BACTERIA TRACE; RBC 0-2 rbc/hpf (0-2); WBC 0-2 wbc/hpf (0-5)
[2021-05-17 21:13] VITALS: BP 152/81
[2021-05-17 21:18] VITALS: BP 151/55
[2021-05-18] VITALS: BP 138/68
[2021-05-18 06:16] LABS: BASO % 0.1 % (0.0-1.0); HEMATOCRIT 33.8 % (37.0-47.0); LYMPH # 1.2 10*3/uL (1.3-4.4); LYMPH % 8.8 % (27.0-41.0); MEAN CELL VOLUME 85.4 fl (81.0-99.0); MEAN CORPUSCULAR HGB 27.8 pg (27.0-31.0); MEAN CORPUSCULAR HGB CONC 32.5 g/dl (33.0-37.0); MEAN PLATELET VOLUME 10.1 fl (9.6-12.3); MONO # 0.1 10*3/uL (0.1-1.0); NEUT # 12.3 10*3/uL (2.3-7.9); NEUT % 88.1 % (47.0-73.0); PLATELET COUNT AUTOMATED 328 10*3/uL (130-400); RED BLOOD COUNT 3.96 10*6/uL (4.10-5.10); RED CELL DISTRI WIDTH 14.2 % (0-14.5); WHITE BLOOD COUNT 13.9 10*3/uL (4.8-10.8)
[2021-05-18 06:24] LABS: ALBUMIN 2.9 gm/dl (3.1-4.5); CREATININE 1.22 mg/dL (0.55-1.02); POTASSIUM 4.1 mmol/L (3.5-5.1)
[2021-05-18 06:25] LABS: TOTAL PROTEIN 7.2 gm/dL (6.4-8.2)
[2021-05-18 08:00] VITALS: BP 131/54
[2021-05-18 12:00] VITALS: BP 138/63
[2021-05-18] MEDS ORDERED: SUBOXONE 8 MG-1 EACH SL (12:12)
[2021-05-18 16:00] VITALS: BP 140/67
[2021-05-18 20:00] VITALS: BP 141/79
[2021-05-19] VITALS: BP 130/86
[2021-05-19 04:00] VITALS: BP 130/86
[2021-05-19 06:06] LABS: BUN 19 mg/dl (7-24); CHLORIDE 105 mmol/L (98-107); CREATININE 1.08 mg/dL (0.55-1.02); POTASSIUM 3.5 mmol/L (3.5-5.1); SODIUM 138 mmol/L (136-145)
[2021-05-19 06:21] LABS: BASO % 0.1 % (0.0-1.0); LYMPH % 13.2 % (27.0-41.0); MEAN CELL VOLUME 84.2 fl (81.0-99.0); MEAN CORPUSCULAR HGB CONC 32.1 g/dl (33.0-37.0); MEAN PLATELET VOLUME 9.9 fl (9.6-12.3); MONO # 0.8 10*3/uL (0.1-1.0); MONO % 4.9 % (3.0-9.0); NEUT # 12.3 10*3/uL (2.3-7.9); PLATELET COUNT AUTOMATED 317 10*3/uL (130-400); RED BLOOD COUNT 4.04 10*6/uL (4.10-5.10); RED CELL DISTRI WIDTH 13.9 % (0-14.5); WHITE BLOOD COUNT 15.4 10*3/uL (4.8-10.8)
[2021-05-19 08:00] VITALS: BP 122/52
[2021-05-19 12:00] VITALS: BP 152/7
[2021-05-19 16:00] VITALS: BP 135/50
[2021-05-19 20:00] VITALS: BP 158/78
[2021-05-20] VITALS: BP 138/73
[2021-05-20 07:15] LABS: BASO % 0.1 % (0.0-1.0); HEMATOCRIT 35.3 % (37.0-47.0); LYMPH # 2.2 10*3/uL (1.3-4.4); LYMPH % 15.6 % (27.0-41.0); MEAN CELL VOLUME 83.3 fl (81.0-99.0); MEAN CORPUSCULAR HGB 27.1 pg (27.0-31.0); MEAN CORPUSCULAR HGB CONC 32.6 g/dl (33.0-37.0); MEAN PLATELET VOLUME 9.6 fl (9.6-12.3); MONO # 0.7 10*3/uL (0.1-1.0); MONO % 4.7 % (3.0-9.0); NEUT # 11.1 10*3/uL (2.3-7.9); NEUT % 77.9 % (47.0-73.0); PLATELET COUNT AUTOMATED 314 10*3/uL (130-400); RED BLOOD COUNT 4.24 10*6/uL (4.10-5.10); WHITE BLOOD COUNT 14.3 10*3/uL (4.8-10.8)
[2021-05-20 07:32] LABS: ALBUMIN 3.2 gm/dl (3.1-4.5); ALKALINE PHOSPHATASE 126 U/L (45-117); BUN 14 mg/dl (7-24); CHLORIDE 107 mmol/L (98-107); CREATININE 0.79 mg/dL (0.55-1.02); POTASSIUM 3.6 mmol/L (3.5-5.1); SGOT/AST 5 IU/L (3-35); SGPT/ALT 16 U/L (12-78); SODIUM 139 mmol/L (136-145); TOTAL PROTEIN 6.9 gm/dL (6.4-8.2)
[2021-05-20 08:00] VITALS: BP 153/78
[2021-05-20 12:00] VITALS: BP 155/77
[2021-05-20 16:00] VITALS: BP 149/78
[2021-05-20 20:00] VITALS: BP 152/82
[2021-05-21] VITALS: BP 174/80
[2021-05-21 06:33] LABS: BASO % 0.2 % (0.0-1.0); BUN 19 mg/dl (7-24); CHLORIDE 107 mmol/L (98-107); CREATININE 0.91 mg/dL (0.55-1.02); HEMATOCRIT 35.2 % (37.0-47.0); LYMPH # 1.9 10*3/uL (1.3-4.4); LYMPH % 14.9 % (27.0-41.0); MEAN CELL VOLUME 82.2 fl (81.0-99.0); MEAN CORPUSCULAR HGB 27.1 pg (27.0-31.0); MONO # 0.8 10*3/uL (0.1-1.0); MONO % 5.9 % (3.0-9.0); NEUT # 9.8 10*3/uL (2.3-7.9); NEUT % 76.7 % (47.0-73.0); PLATELET COUNT AUTOMATED 307 10*3/uL (130-400); POTASSIUM 3.7 mmol/L (3.5-5.1); RED BLOOD COUNT 4.28 10*6/uL (4.10-5.10); RED CELL DISTRI WIDTH 14.1 % (0-14.5); SODIUM 140 mmol/L (136-145); WHITE BLOOD COUNT 12.8 10*3/uL (4.8-10.8)
[2021-05-21 08:00] VITALS: BP 157/78
[2021-05-21 12:00] VITALS: BP 149/73
[2021-05-21 16:00] VITALS: BP 141/67
[2021-05-21 20:00] VITALS: BP 152/88
[2021-05-22] VITALS (9 sets, daily range): BP systolic 128–180; BP diastolic 69–88
[2021-05-22 11:33] LABS: HEMATOCRIT 40.1 % (37.0-47.0); MEAN CORPUSCULAR HGB 27.5 pg (27.0-31.0); MEAN CORPUSCULAR HGB CONC 32.4 g/dl (33.0-37.0); MEAN PLATELET VOLUME 10.6 fl (9.6-12.3); PLATELET COUNT AUTOMATED 276 10*3/uL (130-400); RED BLOOD COUNT 4.72 10*6/uL (4.10-5.10); RED CELL DISTRI WIDTH 14.2 % (0-14.5); WHITE BLOOD COUNT 19.3 10*3/uL (4.8-10.8)
[2021-05-22 12:51] LABS: ALBUMIN 3.4 gm/dl (3.1-4.5); ALKALINE PHOSPHATASE 118 U/L (45-117); BUN 22 mg/dl (7-24); CHLORIDE 110 mmol/L (98-107); CREATININE 0.94 mg/dL (0.55-1.02); POTASSIUM 3.6 mmol/L (3.5-5.1); SGOT/AST 11 IU/L (3-35); SGPT/ALT 16 U/L (12-78); SODIUM 140 mmol/L (136-145); TOTAL PROTEIN 7.1 gm/dL (6.4-8.2)
[2021-05-22 12:56] LABS: OVALOCYTES FEW; PLATELET SUFFICIENCY NORMAL (NORMAL); TOTAL CELLS COUNTED 100 #CELLS
[2021-05-23] VITALS: BP 131/65
[2021-05-23 04:05] VITALS: BP 136/76
[2021-05-23 08:00] VITALS: BP 152/74
[2021-05-23 10:21] LABS: HEMATOCRIT 37.2 % (37.0-47.0); MEAN CELL VOLUME 85.7 fl (81.0-99.0); MEAN CORPUSCULAR HGB 27.6 pg (27.0-31.0); MEAN CORPUSCULAR HGB CONC 32.3 g/dl (33.0-37.0); MEAN PLATELET VOLUME 9.9 fl (9.6-12.3); PLATELET COUNT AUTOMATED 298 10*3/uL (130-400); RED BLOOD COUNT 4.34 10*6/uL (4.10-5.10); RED CELL DISTRI WIDTH 14.1 % (0-14.5); WHITE BLOOD COUNT 17.3 10*3/uL (4.8-10.8)
[2021-05-23 10:51] LABS: BUN 23 mg/dl (7-24); CHLORIDE 105 mmol/L (98-107); CREATININE 1.09 mg/dL (0.55-1.02); POTASSIUM 3.8 mmol/L (3.5-5.1); SODIUM 139 mmol/L (136-145)
[2021-05-23 11:07] LABS: ACID FAST SPEC PROCESSING Concentration (.)
[2021-05-23 11:11] LABS: TOTAL CELLS COUNTED 100 #CELLS
[2021-05-23 11:12] LABS: PLATELET SUFFICIENCY NORMAL (NORMAL)
[2021-05-23 12:00] VITALS: BP 144/84
[2021-05-23] MEDS ORDERED: DOXYCYCLINE MO100 M1 PO (14:22)
[2021-05-23] MEDS ORDERED: PREDNISONE10 MG PO (14:22)
== END 2021-05-23 14:56 | disposition home or self-care (01) | DRG 871 ==
LOC: ED 13:58 → 5E 15:36 → 4E 15:36 → EDHOLD 15:36 → 5E 20:22 → 4E 05-19 18:34
PROVIDERS: Emergency Medicine; Internal Medicine Critical Care Medicine; Podiatrist Foot & Ankle Surgery; ADMIT Internal Medicine; ATTEND Internal Medicine
PROC: 0BC98ZZ Extirpation of Matter from Lingula Bronchus, Via Natural or Artificial Opening Endoscopic (ICD-10-PCS; principal; 2021-05-22)
PROC: 0BC48ZZ Extirpation of Matter from Right Upper Lobe Bronchus, Via Natural or Artificial Opening Endoscopic (ICD-10-PCS; 2021-05-22)
PROC: 0BC88ZZ Extirpation of Matter from Left Upper Lobe Bronchus, Via Natural or Artificial Opening Endoscopic (ICD-10-PCS; 2021-05-22)
PROC: 0BC58ZZ Extirpation of Matter from Right Middle Lobe Bronchus, Via Natural or Artificial Opening Endoscopic (ICD-10-PCS; 2021-05-22)
PROC: 0BC38ZZ Extirpation of Matter from Right Main Bronchus, Via Natural or Artificial Opening Endoscopic (ICD-10-PCS; 2021-05-22)
PROC: 0BC78ZZ Extirpation of Matter from Left Main Bronchus, Via Natural or Artificial Opening Endoscopic (ICD-10-PCS; 2021-05-22)
PROC: 0BC68ZZ Extirpation of Matter from Right Lower Lobe Bronchus, Via Natural or Artificial Opening Endoscopic (ICD-10-PCS; 2021-05-22)
PROC: 0BCB8ZZ Extirpation of Matter from Left Lower Lobe Bronchus, Via Natural or Artificial Opening Endoscopic (ICD-10-PCS; 2021-05-22)
PROC: 0BC18ZZ Extirpation of Matter from Trachea, Via Natural or Artificial Opening Endoscopic (ICD-10-PCS; 2021-05-22)
DX: A41.9 Sepsis, unspecified organism (principal); N17.0 Acute kidney failure with tubular necrosis; J15.9 Unspecified bacterial pneumonia; J44.0 Chronic obstructive pulmonary disease with (acute) lower respiratory infection; E87.2 Acidosis; T17.590A Other foreign object in bronchus causing asphyxiation, initial encounter; J44.1 Chronic obstructive pulmonary disease with (acute) exacerbation; E11.65 Type 2 diabetes mellitus with hyperglycemia; F41.1 Generalized anxiety disorder; K21.00 Gastro-esophageal reflux disease with esophagitis, without bleeding; N18.9 Chronic kidney disease, unspecified; I12.9 Hypertensive chronic kidney disease with stage 1 through stage 4 chronic kidney disease, or unspecified chronic kidney disease; X58.XXXA Exposure to other specified factors, initial encounter; Y93.89 Activity, other specified; Y92.89 Other specified places as the place of occurrence of the external cause; Y99.8 Other external cause status; Z87.891 Personal history of nicotine dependence; Z79.4 Long term (current) use of insulin; Z88.8 Allergy status to other drugs, medicaments and biological substances; Z88.5 Allergy status to narcotic agent; Z80.1 Family history of malignant neoplasm of trachea, bronchus and lung; Z79.82 Long term (current) use of aspirin; Z79.899 Other long term (current) drug therapy

== ENCOUNTER 2021-06-16 16:44 | Emergency (ER) | payer OTHER ==
[~2021-06-16] VITALS: Ht 160 cm; Wt 126.6 kg
[2021-06-16 16:51] VITALS: BP 112/53
[2021-06-16 17:25] LABS: BASO % 0.3 % (0.0-1.0); EOS # 0.2 10*3/uL (0.0-0.4); EOS % 1.6 % (1.0-4.0); HEMATOCRIT 34.2 % (37.0-47.0); LYMPH # 2.5 10*3/uL (1.3-4.4); LYMPH % 21.2 % (27.0-41.0); MEAN CELL VOLUME 87.7 fl (81.0-99.0); MEAN CORPUSCULAR HGB 27.7 pg (27.0-31.0); MEAN CORPUSCULAR HGB CONC 31.6 g/dl (33.0-37.0); MONO # 0.5 10*3/uL (0.1-1.0); MONO % 4.4 % (3.0-9.0); NEUT # 8.4 10*3/uL (2.3-7.9); NEUT % 71.5 % (47.0-73.0); PLATELET COUNT AUTOMATED 353 10*3/uL (130-400); RED CELL DISTRI WIDTH 14.9 % (0-14.5); WHITE BLOOD COUNT 11.7 10*3/uL (4.8-10.8)
[2021-06-16 17:43] LABS: ALBUMIN 2.7 gm/dl (3.1-4.5); ALKALINE PHOSPHATASE 130 U/L (45-117); BUN 13 mg/dl (7-24); CHLORIDE 101 mmol/L (98-107); CREATININE 1.45 mg/dL (0.55-1.02); POTASSIUM 3.5 mmol/L (3.5-5.1); SGOT/AST 7 IU/L (3-35); SGPT/ALT 22 U/L (12-78); SODIUM 138 mmol/L (136-145)
[2021-06-16 17:44] LABS: TROPONIN I < 0.015 ng/ml (<0.045)
[2021-06-16] MEDS ORDERED: SPIRIVA -- 3018 MCG INH (18:41)
[2021-06-16] MEDS ORDERED: PREDNISONE20 M1 PO (18:41)
[2021-06-16] MEDS ORDERED: PROVENTIL HFA6.7 GM INH (18:41)
== END 2021-06-16 18:49 | disposition home or self-care (01) ==
LOC: ED 16:44
PROVIDERS: Emergency Medicine
DX: J40 Bronchitis, not specified as acute or chronic (principal); E11.65 Type 2 diabetes mellitus with hyperglycemia; J44.9 Chronic obstructive pulmonary disease, unspecified; E11.22 Type 2 diabetes mellitus with diabetic chronic kidney disease; I12.9 Hypertensive chronic kidney disease with stage 1 through stage 4 chronic kidney disease, or unspecified chronic kidney disease; N18.30 Chronic kidney disease, stage 3 unspecified; K21.9 Gastro-esophageal reflux disease without esophagitis; E66.01 Morbid (severe) obesity due to excess calories; F17.210 Nicotine dependence, cigarettes, uncomplicated; Z88.6 Allergy status to analgesic agent; Z88.8 Allergy status to other drugs, medicaments and biological substances; Z79.899 Other long term (current) drug therapy; Z79.82 Long term (current) use of aspirin

== ENCOUNTER → 2021-12-05 | Outpatient (CLI) | payer OTHER ==
[~2021-12-05] MED LIST changes: +PREDNISONE20 M1 PO; +PROVENTIL HFA6.7 GM INH; +SPIRIVA -- 3018 MCG INH
== END | disposition home or self-care (01) ==
LOC: MAMMO 11-02 14:30
PROVIDERS: ATTEND Internal Medicine
DX: Z12.31 Encounter for screening mammogram for malignant neoplasm of breast (principal)

== ENCOUNTER → 2022-10-09 | Outpatient (CLI) | payer OTHER ==
[~2022-10-09] MED LIST changes: +ATORVASTATIN CA20 M1 PO; +BUPRENORPHINE-1 EAC1 SL; +DOXEPIN50 MG PO; +FLUCONAZOLE100 MG PO; +OMEPRAZOLE40 MG PO; +PREGABALIN150 MG PO; +SEPTDS PO
== END | disposition home or self-care (01) ==
LOC: MAMMO 01:04
PROVIDERS: ATTEND Internal Medicine
DX: N63.21 Unspecified lump in the left breast, upper outer quadrant (principal); N63.11 Unspecified lump in the right breast, upper outer quadrant; N63.22 Unspecified lump in the left breast, upper inner quadrant

== ENCOUNTER → 2022-11-23 | Outpatient (CLI) | payer OTHER ==
[2022-11-23 14:49] LABS: ALKALINE PHOSPHATASE 149 U/L (46-116); BUN 13 mg/dl (9-23); CHLORIDE 106 mmol/L (98-107); POTASSIUM 3.8 mmol/L (3.4-5.1); TOTAL PROTEIN 7.1 gm/dL (6.0-8.0)
[2022-11-23 14:50] LABS: SGPT/ALT < 7 U/L (10-49)
[2022-11-24 08:08] LABS: HBSAG Negative (Negative); HEP B CORE AB, IGM Negative (Negative); HEPATITIS C ANTIBODY Non Reactive (Non Reactive)
== END | disposition home or self-care (01) ==
LOC: LAB 13:49
PROVIDERS: ATTEND Nurse Practitioner Family
DX: Z13.9 Encounter for screening, unspecified (principal); F11.20 Opioid dependence, uncomplicated; R53.83 Other fatigue; Z11.59 Encounter for screening for other viral diseases; Z72.89 Other problems related to lifestyle

== ENCOUNTER → 2022-12-12 | Outpatient (CLI) | payer OTHER | LOC: US 02:34 | PROVIDERS: ATTEND Internal Medicine | DX: I65.23 Occlusion and stenosis of bilateral carotid arteries (principal); M79.604 Pain in right leg; R20.0 Anesthesia of skin; R20.2 Paresthesia of skin; I10 Essential (primary) hypertension; E11.9 Type 2 diabetes mellitus without complications; R26.2 Difficulty in walking, not elsewhere classified ==